=== PATIENT | female | born 1995 | race Caucasian/White ===

== ENCOUNTER 2016-07-19 11:06 | Inpatient (IN) | payer SELFPAY ==
[~2016-07-19] VITALS: Ht 160 cm; Wt 83.3 kg
[2016-07-19] VITALS (8 sets, daily range): BP systolic 88–110; BP diastolic 52–82; PULSE 62–104; RESP 16–20; TEMP 95.2–97.8; O2SAT 97–100
[~2016-07-19 11:06] MED LIST: BACT800T5 PO; CEPH-460 PO
--- NOTE | 2016-07-19 11:42 | PD ---
HPI Chief Complaint: Skin Problem Time Seen by Provider: 11:32 Travel History International Travel<30 days: No Contact w/Intl Traveler<30days: No Traveled to known affect area: No History of Present Illness HPI Patient is a 21-year-old female with history of IV drug abuse and chronic back pain who presents the emergency department today with complaint of back pain and abscess. Patient states that she has chronic back pain that is increased over the course the last several weeks. She was seen at [facility] and had an x-ray of the back that was reportedly negative and she was discharged. Her pain is increased and now radiates down both legs. There is no numbness, tingling, bowel or bladder dysfunction, saddle anesthesia. Patient however does have a history of IV drug abuse and has been injecting recently with resultant abscess to the left upper extremity. She denies any fevers, chills. [facility] Past Medical History Medical other: Yes (chronic back pain) ?: Not Past Surgical History Section: Yes Cholecystectomy: Yes Social History Alcohol Use: No Tobacco Use: Yes (1PPW) Substance Use: Yes (IV drug abuse) Allergies-Medications (Allergen,Severity, Reaction): Coded Allergies: No Known Allergies (Verified , 07/19/16) Reported Meds & Prescriptions Reported Meds & Active Scripts Active Review of Systems Except as stated in HPI: all other systems reviewed are Neg Physical Exam Narrative GENERAL: Well-appearing female in mild distress SKIN: Track duran in the bilateral upper extremities. Abscess to the left antecubital fossa. HEAD: Normocephalic. EYES:No scleral icterus. No injection or drainage. ENT: Mucous membranes pink and moist. NECK: Supple without midline tenderness to palpation or nuchal rigidity CARDIOVASCULAR: Regular rate and rhythm. No murmur appreciated. RESPIRATORY: No accessory muscle use. Clear to auscultation. Breath sounds equal bilaterally. GASTROINTESTINAL: Abdomen soft, non-tender, nondistended. MUSCULOSKELETAL: 5 out of 5 strength in the bilateral lower extremities, distal sensation and pulses intact. Abscess to the left antecubitus above. Patient complains of pain throughout the lumbar spine, no focal midline tenderness to palpation, step-offs, crepitus. NEUROLOGICAL: Awake and alert. Motor grossly within normal limits. Normal speech. PSYCHIATRIC: Poor insight and judgment Data Data Last Documented VS Vital Signs Date Time Temp Pulse Resp B/P Pulse Ox O2 Delivery O2 Flow Rate FiO2 07/19/16 12:55 89 07/19/16 11:08 97.6 20 110/60 99 Room Air Orders Lidocai-Epi 1%-1:100,000 Inj (Xylocaine- (07/19/16 11:45) Mri L Spine W&W/O Contrast (07/19/16 ) Basic Metabolic Panel (Bmp) (07/19/16 11:36) Blood Culture (07/19/16 11:36) Iv Access Insert/Monitor (07/19/16 11:36) Ketorolac Inj (Toradol Inj) (07/19/16 11:45) Gadodiamide Pf Inj (Omniscan Pf Inj) (07/19/16 15:10) Piperacil-Tazo 4.5 Gm Premix (Zosyn 4.5 (07/19/16 15:56) Vancomycin Inj (Vancomycin Inj) (07/19/16 15:56) Consult Infectious Disease (07/19/16 ) Labs Laboratory Tests Test 07/19/16 12:00 Sodium Level 136 MEQ/L Potassium Level 3.5 MEQ/L Chloride Level 106 MEQ/L Carbon Dioxide Level 23.8 MEQ/L Anion Gap 6 MEQ/L Blood Urea Nitrogen 4 MG/DL Creatinine 0.81 MG/DL Estimat Glomerular Filtration 88 ML/MIN Rate Random Glucose 80 MG/DL Calcium Level 8.7 MG/DL MDM Medical Decision Making Medical Screen Exam Complete: Yes Emergency Medical Condition: Yes Medical Record Reviewed: Yes Differential Diagnosis 21-year-old female with history of IV drug abuse here with complaint of acute on chronic back pain, abscess of the left upper extremity. Differential includes acute on chronic back pain, epidural abscess, discitis, bacteremia, left upper extremity abscess. Narrative Course IV established. Patient was given Toradol for pain. BMP obtained prior to MRI contrast. Unremarkable. Abscess to the left upper extremity was incised and drained, please see procedure note. MRI of the lumbar spine with and without contrast showed marrow edema and diffuse enhancement involving the right side of the inferior aspect of L3 and superior aspect of L4 as well as as diffuse enhancement along the epidural space anterior to the thecal sac from the top of L3 through the bottom of L4. Focal enhancement of the posterior aspect of L3 4 disc space. Findings suggestive of acute discitis with associated osteomyelitis of L3 and L4 and small epidural abscess. Severe right neural foraminal narrowing and moderate to severe left neural foraminal narrowing noted at L3 4. Patient was given vancomycin, Zosyn. Infectious disease and neurosurgery was consulted and patient will be admitted for further management. Critical Care Narrative Aggregate critical care time was 55 minutes. Time to perform other separately billable procedures was not included in the critical care time. My time did not include minutes spent treating any other patients simultaneously or on activities that did not directly contribute to the patient's treatment. The services I provided to this patient were to treat and/or prevent clinically significant deterioration that could result in: Paralysis, chronic back pain, , disability I provided critical care services requiring my management, as noted below: Chart data review, documentation time, medication orders and management, vital sign assessments/reviewing monitor data, ordering and reviewing lab tests, ordering and interpreting/reviewing x-rays and diagnostic studies, care of the patient and discussion of the patient with the admitting physicians. Diagnosis Primary Impression: Epidural abscess Additional Impressions: Discitis Qualified Code: M46.46 - Discitis of lumbar region Osteomyelitis Qualified Code: M86.9 - Osteomyelitis of multiple sites, unspecified type IV drug abuse Abscess of left forearm Admitting Information Admitting Physician Requests: Admit Maya Chapin MD Jul 19, 2016 11:42
[2016-07-19] MEDS ORDERED: LIDOCAINE 1%/EPINEPHrine 1:100,000 SOLN 20 ML VIAL INFIL ONE (11:45)
[2016-07-19] MEDS ORDERED: KETOROLAC TROMETHAMINE 30 MG/ML (IVP) VIAL IV PUSH ONE (11:45)
[2016-07-19 12:25] LABS: BICARBONATE 23.8 MEQ/L (21.0-32.0); POTASSIUM 3.5 MEQ/L (3.5-5.1)
--- NOTE | 2016-07-19 13:31 | PD ---
Physical Exam Date Seen by Provider: Jul 19, 2016 Narrative For full history and physical examination please see previous provider's note. I was asked to perform an I&D to the abscess on the left forearm. Data Data Last Documented VS Vital Signs Date Time Temp Pulse Resp B/P Pulse Ox O2 Delivery O2 Flow Rate FiO2 07/19/16 12:55 89 07/19/16 11:08 97.6 20 110/60 99 Room Air Orders Lidocai-Epi 1%-1:100,000 Inj (Xylocaine- (07/19/16 11:45) Mri L Spine W&W/O Contrast (07/19/16 ) Basic Metabolic Panel (Bmp) (07/19/16 11:36) Blood Culture (07/19/16 11:36) Iv Access Insert/Monitor (07/19/16 11:36) Ketorolac Inj (Toradol Inj) (07/19/16 11:45) Labs Laboratory Tests Test 07/19/16 12:00 Sodium Level 136 MEQ/L Potassium Level 3.5 MEQ/L Chloride Level 106 MEQ/L Carbon Dioxide Level 23.8 MEQ/L Anion Gap 6 MEQ/L Blood Urea Nitrogen 4 MG/DL Creatinine 0.81 MG/DL Estimat Glomerular Filtration 88 ML/MIN Rate Random Glucose 80 MG/DL Calcium Level 8.7 MG/DL MDM Medical Record Reviewed: Yes Supervised Visit with KAI: Yes Procedures Procedure Narrative After the risks and benefits were discussed the following procedure was performed: INCISION AND DRAINAGE OF ABSCESS: The area was prepped and was sterilely draped. A subcutaneous wheal of 1 % Xylocaine with a total number 2 mL was used to anesthetize the area. The area was properly anesthetized. A number 11 scalpel was used to make a 1-cm incision across the area of the abscess. Cultures were obtained. The abscess was drained an irrigated with normal saline. Quarter inch iodoform packing was placed in the wound. Sterile dressing applied. Patient advised to have packing removed in two days. Kelsey Beverly Jul 19, 2016 13:31
[2016-07-19] MEDS ORDERED: GADODIAMIDE PF 287 MG/ML 5 ML VIAL (for RAD MRI) IV ONE (15:10)
--- NOTE | 2016-07-19 15:54 | RADRPT ---
EXAM DATE/TIME: 07/19/2016 14:15 [facility] COMPARISON: No previous studies available for comparison. INDICATIONS : Abscess. CONTRAST: 15 cc Omniscan (gadodiamide) IV MEDICAL HISTORY : None. SURGICAL HISTORY : Cholecystectomy. section. ENCOUNTER: Initial ACUITY: 2 day PAIN SCORE: 4/10 LOCATION: Back TECHNIQUE: Multiplanar multisequence MRI of the lumbar spine was performed with and without contrast. FINDINGS: There is evidence of marrow edema involving the right half of the inferior portion of the L3 vertebra l body and the right half of the superior portion of the L4 vertebral body which demonstrates diffuse enhancement. There is also disc space narrowing and diffuse disc bulge at L3-4. Epidural enhanceme nt is noted anteriorly from L3 to L4 without evidence of significant mass effect upon the thecal sac. Severe right neural foraminal narrowing and moderate to severe left neural foraminal narrowing is no aquiles at this level. The findings are suggestive of acute discitis of the L3-4 level with adjacent ost eomyelitis of L3 and L4 predominantly on the right of midline as well as small anterior epidural absc ess extending from the top of L3 to the bottom of L4. Clinical correlation is recommended. There is no spinal stenosis or focal disc herniation within the remainder of the lumbar spine. No co mpression fracture or spondylolisthesis is noted. T12-L1: There is no significant spinal stenosis, disc bulge or herniation. The bilateral neural foramina are patent. The facet joints and ligaments are unremarkable. L1-2: There is no significant spinal stenosis, disc bulge or herniation. The bilateral neural foramina are patent. The facet joints and ligaments are unremarkable. L2-3: There is no significant spinal stenosis, disc bulge or herniation. The bilateral neural foramina are patent. The facet joints and ligaments are unremarkable. L3-4: There is diffuse marrow edema involving the right sides of the inferior aspect of L3 and the superior aspect of the L4 as well as diffuse disc bulge and diffuse anterior epidural enhancement from the to p of L3 through the bottom of L4. The findings are suggestive of acute discitis and associated oste omyelitis of L3 and L4 with small epidural abscess. No spinal stenosis is noted. There is severe rig ht neural foraminal narrowing and moderate to severe left neural foraminal narrowing at this level. L4-5: There is no significant spinal stenosis, disc bulge or herniation. The bilateral neural foramina are patent. The facet joints and ligaments are unremarkable. L5-S1: There is no significant spinal stenosis, disc bulge or herniation. The bilateral neural foramina are patent. The facet joints and ligaments are unremarkable. CONCLUSION: Marrow edema and diffuse enhancement involving the right side of the inferior aspect of L3 and superi or aspect of L4 as well as diffuse enhancement along the epidural space anterior to the thecal sac fr om the top of L3 through the bottom of L4 and focal enhancement of the posterior aspect of the L3-4 d isc space. The findings are suggestive of acute discitis at L3-4 with associated osteomyelitis of L3 and L4 and small epidural abscess. Clinical correlation is recommended. Severe right neural foramina l narrowing and moderate to severe left neural foraminal narrowing is noted at L3-4. Ortega Rutherford MD on July 19, 2016 at 15:19 Board Certified Radiologist. This report was verified electronically.
[2016-07-19] MEDS ORDERED: VANCOMYCIN INJ 1,000 MG in SODIUM CHLOR 0.9% 250 ML INJ 250 ML IV STA (15:56)
[2016-07-19] MEDS ORDERED: PIPERACIL-TAZO 4.5 GM PREMIX 100 ML IV STA (15:56)
[2016-07-19] MEDS ORDERED: ONDANSETRON HCL 4 MG/2 ML VIAL IVP PRN (16:45)
[2016-07-19] MEDS ORDERED: NALOXONE HCL 0.4 MG/ML AMP IV PRN (16:45)
--- NOTE | 2016-07-19 16:47 | HHI.HP ---
[facility] No Primary Care Physician Admission Diagnosis epidural abscess, discitis, osteomyelitis, left upper extremity absc Diagnoses: Chief Complaint: lower back pain and left arm abscess. Travel History International Travel<30 Days: No Contact w/Intl Traveler <30 Da: No Traveled to Known Affected Are: No History of Present Illness This is a 21-year-old female with current IV drug user who presented with lower back pain and left arm abscess. Patient stated lower back pain started about 1 month ago and worsened over time. She stated then less than 1 week ago she had left arm cellulitis with abscess formation that was I&D in emergency department. Patient denies any worsening weakness or any incontinence. She stated that she mostly use IV drugs on her right arm but has use her left arm 2. Patient started to using IV drugs the past 2-3 years. When I asked her her drug of choice she stated that she likes to use everything including heroin, cocaine, prescription medication. She denies any fevers or chills. Otherwise she has no other complaints. Review of Systems Constitutional: DENIES: Diaphoretic episodes, Fatigue, Fever, Weight gain, Weight loss, Chills, Dizziness, Change in appetite, Night Sweats Endocrine: DENIES: Abnorml menstrual pattern, Heat/cold intolerance, Polydipsia , Polyuria, Polyphagia Eyes: DENIES: Blurred vision, Diplopia, Eye inflammation, Eye pain, Vision loss , Photosensitivity, Double Vision Ears, nose, mouth, throat: DENIES: Tinnitus, Hearing loss, Vertigo, Nasal discharge, Oral lesions, Throat pain, Hoarseness, Ear Pain, Running Nose, Epistaxis, Sinus Pain, Toothache, Odynophagia Respiratory: DENIES: Apneas, Cough, Snoring, Wheezing, Hemoptysis, Sputum production, Shortness of breath Cardiovascular: DENIES: Chest pain, Palpitations, Syncope, Dyspnea on Exertion , PND, Lower Extremity Edema, Orthopnea, Claudication Gastrointestinal: DENIES: Abdominal pain, Black stools, Bloody stools, Constipation, Diarrhea, Nausea, Vomiting, Difficulty Swallowing, Anorexia Genitourinary: DENIES: Abnormal vaginal bleeding, Dysmenorrhea, Dyspareunia, Sexual dysfunction, Urinary frequency, Urinary incontinence, Urgency, Hematuria , Dysuria, Nocturia, Vaginal discharge Musculoskeletal: COMPLAINS OF: Back pain (left arm cellulitis with abscess.), DENIES: Joint pain, Muscle aches, Stiffness, Joint Swelling, Neck pain Integumentary: DENIES: Abnormal pigmentation, Pruritus, Rash, Nail changes, Breast masses, Breast skin changes, Nipple discharge Hematologic/lymphatic: DENIES: Bruising, Lymphadenopathy Immunologic/allergic: DENIES: Eczema, Urticaria Psychiatric: DENIES: Anxiety, Confusion, Mood changes, Depression, Hallucinations, Agitation, Suicidal Ideation, Homicidal Ideation, Delusions Past Family Social History Past Medical History IV drug user Past Surgical History D&C Cholecystectomy Reported Medications Deny any home medication. Allergies: Coded Allergies: No Known Allergies (Verified , 07/19/16) Active Ordered Medications Current Medications Lidocaine/ Epinephrine (Xylocaine-Epi 1%-1:100,000 Inj) 10 ml ONCE ONCE INFIL Last administered on 07/19/16 13:23; Start 07/19/16 at 11:45; Stop 07/19/16 at 11:46; Status DC Ketorolac Tromethamine (Toradol Inj) 30 mg ONCE ONCE IV PUSH Last administered on 07/19/16 12:17; Start 07/19/16 at 11:45; Stop 07/19/16 at 11:46 ; Status DC Gadodiamide 15 ml 15 ml STK-MED ONCE IV Last administered on 07/19/16 15:10; Start 07/19/16 at 15:10; Stop 07/19/16 at 15:11; Status DC Piperacillin Sod/ Tazobactam Sod 100 ml @ 200 mls/hr ONCE STAT IV ; Start at 15:56; Stop 07/19/16 at 16:25; Status Cancel Vancomycin HCl 1000 mg/Sodium Chloride 250 ml @ 250 mls/hr ONCE STAT IV ; Start 07/19/16 at 15:56; Stop 07/19/16 at 16:55; Status Cancel Sodium Chloride (NS 1000 ml Inj) 1,000 ml @ 100 mls/hr Q10H IV ; Start at 16:32 Sodium Chloride (NS Flush) 2 ml UNSCH PRN IV FLUSH FLUSH AFTER USING IV ACCESS ; Start 07/19/16 at 16:45 Sodium Chloride (NS Flush) 2 ml BID IV FLUSH ; Start 07/19/16 at 21:00 Ondansetron HCl (Zofran Inj) 4 mg Q6H PRN IVP NAUSEA OR VOMITING; Start at 16:45 Naloxone HCl (Narcan Inj) 0.4 mg UNSCH PRN IV SEE LABEL COMMENTS; Start at 16:45 Family History Father has diabetes. Social History Denies any alcohol or tobacco use. Positive for polysubstance abuse. Physical Exam Vital Signs Vital Signs Date Time Temp Pulse Resp B/P Pulse Ox O2 Delivery O2 Flow Rate FiO2 07/19/16 12:55 89 07/19/16 11:08 97.6 104 20 110/60 99 Room Air Physical Exam GENERAL: This is a well-nourished, well-developed patient, in no apparent distress. SKIN: left arm wrapped in bandage s/p I&D. HEAD: Atraumatic. Normocephalic. No temporal or scalp tenderness. EYES: Pupils equal round and reactive. Extraocular motions intact. No scleral icterus. No injection or drainage. ENT: Nose without bleeding, purulent drainage or septal hematoma. Throat without erythema, tonsillar hypertrophy or exudate. Uvula midline. Airway patent. NECK: Trachea midline. No JVD or lymphadenopathy. Supple, nontender, no meningeal signs. CARDIOVASCULAR: Regular rate and rhythm without murmurs, gallops, or rubs. RESPIRATORY: Clear to auscultation. Breath sounds equal bilaterally. No wheezes , rales, or rhonchi. GASTROINTESTINAL: Abdomen soft, non-tender, nondistended. No hepato-splenomegaly , or palpable masses. No guarding. MUSCULOSKELETAL: Extremities without clubbing, cyanosis, or edema. TTP of the lower back. No calf tenderness. Negative Homans sign bilaterally. NEUROLOGICAL: Awake and alert. Cranial nerves II through XII intact. Motor and sensory grossly within normal limits. Five out of 5 muscle strength in all muscle groups. Normal speech. Laboratory Laboratory Tests Test 07/19/16 12:00 Sodium Level 136 Potassium Level 3.5 Chloride Level 106 Carbon Dioxide Level 23.8 Anion Gap 6 Blood Urea Nitrogen 4 Creatinine 0.81 Estimat Glomerular Filtration 88 Rate Random Glucose 80 Calcium Level 8.7 Date/Time Procedure Status Source Growth 07/19/16 12:17 Aerobic Blood Culture Received Blood Peripheral Pending 07/19/16 12:17 Anaerobic Blood Culture Received Blood Peripheral Pending Result Diagram: 07/19/16 1200 Imaging Last Impressions Lumbar Spine MRI 07/19/16 0000 Signed Impressions: Service Date/Time: Tuesday, July 19, 2016 14:15 - CONCLUSION: Marrow edema and diffuse enhancement involving the right side of the inferior aspect of L3 and superior aspect of L4 as well as diffuse enhancement along the epidural space anterior to the thecal sac from the top of L3 through the bottom of L4 and focal enhancement of the posterior aspect of the L3-4 disc space. The findings are suggestive of acute discitis at L3-4 with associated osteomyelitis of L3 and L4 and small epidural abscess. Clinical correlation is recommended. Severe right neural foraminal narrowing and moderate to severe left neural foraminal narrowing is noted at L3-4. Ortega Rutherford MD Assessment and Plan Assessment and Plan Lower back pain -MRI of the lumbar suggestive of acute discitis at L3-4 with associated osteomyelitis of L3 and L4 and small epidural abscess. Severe right neural foraminal narrowing and moderate to severe left neural foraminal narrowing is noted at L3-4. -NSG consulted and recommend CT guided drainage of the abscess. ? L3-4 discitis associated osteomyelitis and small epidural abscess -patient is not septic and clinically looks well. -blood cultures obtained in ED. -will get CBC. -ID consulted. -d/w Dr. Martell over the phone and stated to hold antibiotics for now. Left arm abscess -Most likely secondary to IV drug use. Status post I&D in emergency department today. -Pending recommendations from infectious disease. IVDU with "everything" including prescription, heroine, cocaine -education give and harmful effects of IVDU. -recommend testing for Hepatitis and HIV. Patient stated she wants to be tested for hepatitis but declined HIV testing. DVT prophylaxis -SCDs. Code Status full Discussed Condition With patient Physician Certification 2 Midnight Certification Type: Admission for Inpatient Services Order for Inpatient Services The services are ordered in accordance with Medicare regulations or non- Medicare payer requirements, as applicable. In the case of services not specified as inpatient-only, they are appropriately provided as inpatient services in accordance with the 2-midnight benchmark. Estimated LOS (days): 5 5 days is the estimated time the patient will need to remain in the hospital, assuming treatment plan goals are met and no additional complications. Post-Hospital Plan: Home Health Laura Palafox MD Jul 19, 2016 16:47
[2016-07-19 17:22] LABS: AUTOMATED NEUTROPHIL # 5.3 TH/MM3 (1.8-7.7); BASOPHIL % 0.1 % (0.0-2.0); EOSINOPHIL % 0.5 % (0.0-4.0); HEMATOCRIT 38.6 % (35.0-46.0); HEMO FLAGS DIFF FINAL; LYMPH % 27.6 % (9.0-44.0); LYMPHOCYTE # 2.3 TH/MM3 (1.0-4.8); MEAN CORPUSCULAR HGB CONC 32.1 % (32.0-36.0); MONO % 7.6 % (0.0-8.0); NEUT % 64.2 % (16.0-70.0); PLATELET COUNT 198 TH/MM3 (150-450); RED CELL DISTRIBUTION WIDTH 15.3 % (11.6-17.2); WHITE BLOOD COUNT 8.2 TH/MM3 (4.0-11.0)
[2016-07-19 17:48] LABS: APTT (PATIENT) 33.3 SEC (24.3-30.1); INTERNATIONAL NORMALIZED RATIO 1.1 RATIO; PROTHROMBIN TIME - PATIENT 12.2 SEC (9.8-11.6)
[2016-07-19] MEDS ORDERED: fentaNYL CITRATE 250 MCG/5 ML AMP ONE (18:06)
[2016-07-19] MEDS ORDERED: MIDAZOLAM HCL 5 MG/5 ML VIAL ONE (18:06)
[2016-07-19] MEDS ORDERED: LIDOCAINE 1%/EPINEPHrine 1:100,000 SOLN 20 ML VIAL ONE (18:08)
--- NOTE | 2016-07-19 18:54 | PD.RAD ---
Post CT Procedure Prog Note Pre Procedure Diagnosis: (1) Epidural abscess (2) IV drug abuse Post Procedure Diagnosis: (1) Epidural abscess (2) IV drug abuse Procedure Date: Jul 19, 2016 Supervising Radiologist: Humberto Rodriguez Proceduralist/Assist: Carrillo Gaming RT(R)(CT) Anesthesia: Local, Analgesia, Conscious Sedation Plan of Activity Patient to Unit: Other (ED) Patient Condition: Good See PACS Report for procedural detail/treatment Biopsy Imaging Guidance: CT Biopsy Procedure: Other (Paraspinal right side L3-4) Site: Paraspinal tissues at L3-4 Humberto Rodriguez MD Jul 19, 2016 18:53
[2016-07-19] MEDS: SODIUM CHLOR 0.9% 1000 ML INJ 1,000 ML IV SCH (21:00)
[2016-07-19] MEDS ORDERED: HYDROmorphone HCL PF 1 MG/ML VIAL IV PUSH ONE (23:45)
[2016-07-19] MEDS: ACETAMINOPHEN 325 MG TAB PO PRN (23:50)
[2016-07-19] MEDS: SODIUM CHLORIDE 0.9% FLUSH 10 ML FLUSH IV FLUSH SCH (23:55)
[2016-07-20] VITALS: BP 96/53; PULSE 76; RESP 18; TEMP 95.2; O2SAT 97
[2016-07-20] MEDS: KETOROLAC TROMETHAMINE 30 MG/ML (IVP) VIAL IV PUSH PRN ×3 (03:00→21:56)
[2016-07-20 04:00] VITALS: BP 101/72; PULSE 83; RESP 18; TEMP 97.5; O2SAT 98
[2016-07-20] MEDS: ACETAMINOPHEN 325 MG TAB PO PRN ×3 (04:56→21:55)
[2016-07-20] MEDS: SODIUM CHLOR 0.9% 1000 ML INJ 1,000 ML IV SCH (05:00)
[2016-07-20 08:00] VITALS: BP 96/56; PULSE 55; RESP 17; TEMP 95.7; O2SAT 98
[2016-07-20 09:42] LABS: HEMATOCRIT 32.8 % (35.0-46.0); MEAN CELL VOLUME 83.6 FL (80.0-100.0); MEAN CORPUSCULAR HEMOGLOBIN 27.6 PG (27.0-34.0); PLATELET COUNT 149 TH/MM3 (150-450); RED BLOOD COUNT 3.93 MIL/MM3 (4.00-5.30); RED CELL DISTRIBUTION WIDTH 15.5 % (11.6-17.2); REVIEW FLAG FINAL; WHITE BLOOD COUNT 4.2 TH/MM3 (4.0-11.0)
[2016-07-20 10:17] LABS: BICARBONATE 24.7 MEQ/L (21.0-32.0); POTASSIUM 3.7 MEQ/L (3.5-5.1)
--- NOTE | 2016-07-20 11:39 | RADRPT ---
EXAM DATE/TIME: 07/19/2016 18:27 [facility] COMPARISON: No previous studies available for comparison. INDICATIONS : Discitis. SEDATION TIME: 30 minutes MEDICATION(S): 1.) 3 mg midazolam (Versed) IV 2.) 200 mcg fentanyl (Sublimaze) LABOR RELATIONS DIRECTOR(s): Neo Jose RN DEVICE(S): 1.) 18 gauge Kim blunt needle 2.) 20 gauge Chiba FLUID: Total volume of 5 cc of cloudy, red fluid was removed. Fluid was sent for laboratory ordered studies. MEDICAL HISTORY : None. SURGICAL HISTORY : Cholecystectomy. ENCOUNTER: Initial ACUITY: 1 month PAIN SCORE: 10/10 LOCATION: Bilateral lower back PROCEDURE: 1.) Conscious sedation with continuous EKG and oximetry monitoring. 2.) EKG and oximetry remained stable throughout the procedure. PROCEDURE : CT guided right paravertebral biopsy, L3-L4. The risks, benefits and alternatives to the procedure were explained and verbal and written consent w as obtained. Using automated exposure control and adjustment of the mA and/or kV according to patien t size, radiation dose was kept as low as reasonably achievable to obtain optimal diagnostic quality images. The site was prepped in sterile fashion. Full sterile technique was used, including cap, ma sk, sterile gloves and gown and a large sterile sheet. Hand hygiene and 2% chlorhexidine and/or beta dine/alcohol prep was utilized per protocol for cutaneous antisepsis. The skin and subcutaneous tiss ues were infiltrated with local anesthetic solution. A 15 cm, 18 gauge Kim blunt needle was advanced into the paravertebral tissues on the right side of the L3-4 vertebral body and disc. 20 gauge FNA was obtained. This was placed in a culture tube. Th e outer cannulas ET D. Kim blunt needle was then aspirated as well. This too was placed in the [facility] culture tubes and sent to laboratory for analysis. CONCLUSION: Uncomplicated paravertebral FNA as above. Humberto Rodriguez MD on July 20, 2016 at 11:21 Board Certified Radiologist. This report was verified electronically.
[2016-07-20 12:00] VITALS: BP 107/59; PULSE 80; RESP 17; TEMP 96.3; O2SAT 98
--- NOTE | 2016-07-20 13:31 | MB ---
cc: MOOKIE VILLAFUERTE M.D. DATE OF CONSULTATION 07/20/2016 REASON FOR CONSULTATION L3-4 osteomyelitis. HISTORY OF PRESENT ILLNESS This is a 21-year-old female with a one-month history of low back pain where at times, it radiates into the right buttock and thigh area. She denies any weakness or incontinence. She does have a history of IV drug abuse and has been injecting drugs recently with an abscess in the left upper extremity. She presented to the emergency room and this abscess was incised and drained and cultures sent out which are pending. MRI scan of the lumbar spine also obtained which shows enhancement of the inferior L3 and superior L4 end plates along with some epidural enhancement, but no significant spinal stenosis. The MRI of the lumbar spine findings were consistent with osteomyelitis and possibly a small epidural abscess/diskitis. She underwent CT-guided aspiration of this paraspinal L3-L4 level, cultures are pending. She has also had two blood cultures which the results are pending. Antibiotics were held until the cultures were obtained and infectious disease consultation is also pending. She has been able to ambulate and go to the bathroom independently and relates that her back pain is slightly better with medications compared to yesterday. PAST MEDICAL HISTORY 1. IV drug abuse which includes heroin, cocaine and prescription pain medication. 2. 3. Cholecystectomy 4. D&C ALLERGIES NO KNOWN DRUG ALLERGIES. SOCIAL HISTORY She is single and admits to IV drug abuse. Denies alcohol or tobacco use. REVIEW OF SYSTEMS Pertinent positives includes cellulitis and abscess in the left forearm area which was drained yesterday in the emergency room, but she denies any fevers. No chest pain or shortness of breath. No neck pain, numbness or paresthesias in the upper extremities and eminently she has noticed some in the right leg when she is walking, but mostly relates difficulty because of the pain with activity in the back. No incontinence. No history of easy bleeding or bruising. No nausea or vomiting. No abdominal pain. LABORATORY FINDINGS White blood cell count 4.2, hemoglobin 10.8, platelet count 149, ESR 38. Sodium 142, potassium 3.7, BUN 7, creatinine 0.57, glucose is 76, PT 12.2, INR 1.1. PHYSICAL EXAMINATION VITALS: Temperature 95.7, pulse 55, rest rate 17, blood pressure 96/56, oxygen saturation 98% on room air. HEAD: Normocephalic, atraumatic. NECK: Supple. CHEST: Clear to incision bilaterally. HEART: Regular rate rhythm, normal S1 and S2. ABDOMEN: Soft and nontender. She is obese. EXTREMITIES: No cyanosis. She does have a dressing on the left elbow area after I&D. No obvious deformity. NEUROLOGIC: She is laying in bed eating lunch and talking on her cell phone and does not appear to be in any distress. She is awake, alert, and oriented x3. Cranial nerves intact. Motor strength in the upper and lower extremities 5/5. Some give away weakness more proximally in the right leg with pain, but no focal deficits noted. Light touch sensation is intact. Negative Babinski. Speech is fluent. IMPRESSION AND PLAN 1. L3-L4 osteomyelitis with possible diskitis and a small epidural abscess without any spinal stenosis. 2. Left arm cellulitis left abscess status post I&D related to IV drug abuse. The patient has undergone an L3-4 CT-guided aspiration along with I&D of the left forearm and blood cultures. the results of all are pending. At this point since the cultures have been obtained, I would recommend initiation of broad spectrum IV antibiotics and subsequently titrated to any organisms that grow out from the various cultures obtained. Obviously, I will defer this management and antibiotic treatment to the infectious disease service. At this point, there is no role for any neurosurgical intervention and will be available as needed. MD ERNESTO Umana/MANUEL /12:28 PM /1:21 PM
[2016-07-20] MEDS: VANCOMYCIN INJ 1,000 MG in SODIUM CHLOR 0.9% 250 ML INJ 250 ML IV SCH (14:34)
[2016-07-20 16:00] VITALS: BP 106/51; PULSE 79; RESP 18; TEMP 97; O2SAT 99
--- NOTE | 2016-07-20 16:02 | PD.ID.CON ---
History of Present Illness Service ID Consult Requested By Dr Mota Reason for Consult osteomyelitis, diskitis Primary Care Physician No Primary Care Physician Diagnoses: History of Present Illness 21 yo female with actice IVDU presented with lower back pain, R sided, radiating to R buttock and thigh Also noticed 2-3 days ago a painful lesion on her L forearm that was I+D'd yday , growing MRSA She has back pain for few weeks, but denies any fever, chills and night sweats She also denies lower extremeties weakness and esther/ /urine incontinence Her MRI showed findings suggestive of acute discitis at L3-4 with associated osteomyelitis of L3 and L4 and small epidural abscess She was seen by Dr Suzy Mota who recommended against neurosurgical intervention Pt underewent IR aspiration of the disk and the clx is now growing GNB She is on vancomycin and levaquine Review of Systems Except as stated in HPI: all other systems reviewed are Neg Past Family Social History Allergies: Coded Allergies: No Known Allergies (Verified , 07/19/16) Past Medical History IV drug user Past Surgical History D&C Cholecystectomy Active Ordered Medications Medications where reviewed in EMR Antibiotics Include: levaquine vancomycin Family History Non-Contributory. Social History No Tobacco. No ETOH. + Illicit Drugs, acive IVDA Physical Exam Vital Signs Vital Signs Date Time Temp Pulse Resp B/P Pulse Ox O2 Delivery O2 Flow Rate FiO2 07/20/16 12:00 96.3 80 17 107/59 98 07/20/16 08:00 95.7 55 17 96/56 98 07/20/16 04:00 97.5 83 18 101/72 98 07/20/16 00:00 95.2 76 18 96/53 97 07/19/16 22:38 95.2 76 18 96/53 97 07/19/16 20:15 67 17 93/52 100 Room Air 07/19/16 20:00 66 17 90/55 100 Room Air 07/19/16 19:45 62 17 97/55 99 Room Air 07/19/16 19:30 78 16 94/52 97 Room Air 07/19/16 19:11 97.8 69 16 88/52 98 Room Air Physical Exam CONSTITUTIONAL/GENERAL: This is an adequately nourished patient, in mild distress 2/2 pain TUBES/LINES/DRAINS: SKIN: No jaundice, rashes, or lesions. Skin temperature appropriate. Not diaphoretic. HEAD: Atraumatic. Normocephalic. EYES: Pupils equal and round and reactive. Extraocular motions intact. No scleral icterus. No injection or drainage. Fundi not examined. ENT: Hearing grossly normal. Nose without bleeding or purulent drainage. Throat without visible erythema, exudates, masses, or lesions. NECK: Trachea midline. Supple, nontender. No palpable thyroid enlargement or nodularity. CARDIOVASCULAR: Regular rate and rhythm without murmurs, gallops, or rubs. No JVD. Peripheral pulses symmetric. RESPIRATORY/CHEST: Symmetric, unlabored respirations. Clear to auscultation. Breath sounds equal bilaterally. No wheezes, rales, or rhonchi. GASTROINTESTINAL: Abdomen soft, non-tender, nondistended. No hepato-splenomegaly , or palpable masses. No guarding. Bowel sounds present. MUSCULOSKELETAL: Extremities without clubbing, cyanosis, or edema.. No mottling or clubbing. L forearm with operative dressing in place , packing in place wih minimal drainage BACK: tender to palpation overn R lower lumbar area LYMPHATICS: No palpable cervical or supraclavicular adenopathy. NEUROLOGICAL: Awake and alert. Motor and sensory grossly within normal limits. Follows commands. Normal speech. Moves all extremities 5/5 strengh PSYCHIATRIC: No obvious anxiety/depression. no apparent hallucinations or other psychotic thought process, though is anxious about her pain Laboratory Laboratory Tests Test 07/20/16 08:29 White Blood Count 4.2 Red Blood Count 3.93 Hemoglobin 10.8 Hematocrit 32.8 Mean Corpuscular Volume 83.6 Mean Corpuscular Hemoglobin 27.6 Mean Corpuscular Hemoglobin 33.0 Concent Red Cell Distribution Width 15.5 Platelet Count 149 Mean Platelet Volume 9.5 Sodium Level 142 Potassium Level 3.7 Chloride Level 110 Carbon Dioxide Level 24.7 Anion Gap 7 Blood Urea Nitrogen 7 Creatinine 0.57 Estimat Glomerular Filtration 133 Rate Random Glucose 76 Calcium Level 8.2 Hepatitis A IgM Antibody NEGATIVE Hepatitis B Surface Antigen NEGATIVE Hepatitis B Core IgM Antibody REACTIVE Hepatitis C Antibody REACTIVE Date/Time Procedure Status Source Growth 07/19/16 18:40 Gram Stain - Final Resulted Abscess Back 07/19/16 18:40 Wound Culture - Preliminary Resulted Gram Negative Miguel Ángel 07/19/16 12:17 Aerobic Blood Culture - Preliminary Resulted Blood Peripheral NO GROWTH IN 1 DAY 07/19/16 12:17 Anaerobic Blood Culture - Preliminary Resulted Blood Peripheral NO GROWTH IN 1 DAY Result Diagram: 07/20/16 0829 07/20/16 0829 Imaging Last Impressions Needle Aspiration CT 07/19/16 0000 Signed Impressions: Service Date/Time: Tuesday, July 19, 2016 18:27 - CONCLUSION: Uncomplicated paravertebral FNA as above. Humberto Rodriguez MD Lumbar Spine MRI 07/19/16 0000 Signed Impressions: Service Date/Time: Tuesday, July 19, 2016 14:15 - CONCLUSION: Marrow edema and diffuse enhancement involving the right side of the inferior aspect of L3 and superior aspect of L4 as well as diffuse enhancement along the epidural space anterior to the thecal sac from the top of L3 through the bottom of L4 and focal enhancement of the posterior aspect of the L3-4 disc space. The findings are suggestive of acute discitis at L3-4 with associated osteomyelitis of L3 and L4 and small epidural abscess. Clinical correlation is recommended. Severe right neural foraminal narrowing and moderate to severe left neural foraminal narrowing is noted at L3-4. Ortega Rutherford MD Assessment and Plan Assessment and Plan IVDU acute discitis with associated osteomyelitis of L3 and L4 and small epidural abscess, GNB (? psuedomonas)) cont vancomycin cont levaquin - start cefepime 2 gm q 8 hrs monitor clincially anticipate repeat imaging studies next week, earlier if clinical deterioration Beverley Fiore MD Jul 20, 2016 16:02
[2016-07-20] MEDS: LEVOFLOXACIN 750 MG PREMIX INJ 150 ML IV SCH (16:10)
--- NOTE | 2016-07-20 16:58 | HHI.PR ---
Subjective Remarks Follow-up for infection Patient had no complaints. She remains afebrile. I asked patient if I can remove the bandage so I can see the cellulitis on her left arm and she refused. Alexander otherwise no acute events overnight. Objective Vitals Vital Signs Date Time Temp Pulse Resp B/P Pulse Ox O2 Delivery O2 Flow Rate FiO2 07/20/16 16:00 97.0 79 18 106/51 99 07/20/16 12:00 96.3 80 17 107/59 98 07/20/16 08:00 95.7 55 17 96/56 98 07/20/16 04:00 97.5 83 18 101/72 98 07/20/16 00:00 95.2 76 18 96/53 97 07/19/16 22:38 95.2 76 18 96/53 97 07/19/16 20:15 67 17 93/52 100 Room Air 07/19/16 20:00 66 17 90/55 100 Room Air 07/19/16 19:45 62 17 97/55 99 Room Air 07/19/16 19:30 78 16 94/52 97 Room Air 07/19/16 19:11 97.8 69 16 88/52 98 Room Air I/O 07/19/16 07/19/16 07/19/16 07/20/16 07/20/16 07/20/16 07:00 15:00 23:00 07:00 15:00 23:00 Intake Total 360 ml Balance 360 ml Intake Oral 360 ml # Voids 3 1 # Bowel Movements 0 Result Diagram: 07/20/1682807/20/16828 Objective Remarks GENERAL: in NAD CARDIOVASCULAR: Regular rate and rhythm without murmurs, gallops, or rubs. RESPIRATORY: Breath sounds equal bilaterally. No accessory muscle use. GASTROINTESTINAL: Abdomen soft, non-tender, nondistended. MUSCULOSKELETAL: No cyanosis, or edema. left arm in bandage. I am not able to examine it since patient refused. BACK: Nontender without obvious deformity. No CVA tenderness. Medications and IVs Current Medications Lidocaine/ Epinephrine (Xylocaine-Epi 1%-1:100,000 Inj) 10 ml ONCE ONCE INFIL Last administered on 07/19/16t 13:23; Start 07/19/16 at 11:45; Stop 07/19/16 at 11:46; Status DC Ketorolac Tromethamine (Toradol Inj) 30 mg ONCE ONCE IV PUSH Last administered on 07/19/16 12:17; Start 07/19/16 at 11:45; Stop 07/19/16 at 11:46 ; Status DC Gadodiamide 15 ml 15 ml STK-MED ONCE IV Last administered on 07/19/16 15:10; Start 07/19/16 at 15:10; Stop 07/19/16 at 15:11; Status DC Piperacillin Sod/ Tazobactam Sod 100 ml @ 200 mls/hr ONCE STAT IV ; Start at 15:56; Stop 07/19/16 at 16:25; Status Cancel Vancomycin HCl 1000 mg/Sodium Chloride 250 ml @ 250 mls/hr ONCE STAT IV ; Start 07/19/16 at 15:56; Stop 07/19/16 at 16:55; Status Cancel Sodium Chloride (NS 1000 ml Inj) 1,000 ml @ 100 mls/hr Q10H IV Last administered on 07/20/16 05:00; Start 07/19/16 at 16:32 Sodium Chloride (NS Flush) 2 ml UNSCH PRN IV FLUSH FLUSH AFTER USING IV ACCESS ; Start 07/19/16 at 16:45 Sodium Chloride (NS Flush) 2 ml BID IV FLUSH ; Start 07/19/16 at 21:00 Ondansetron HCl (Zofran Inj) 4 mg Q6H PRN IVP NAUSEA OR VOMITING; Start at 16:45 Naloxone HCl (Narcan Inj) 0.4 mg UNSCH PRN IV SEE LABEL COMMENTS; Start at 16:45 Midazolam HCl (Versed Inj) 5 mg STK-MED ONCE .ROUTE Last administered on 18:06; Start 07/19/16 at 18:06; Stop 07/19/16 at 18:07; Status DC Fentanyl Citrate (fentaNYL INJ) 250 mcg STK-MED ONCE .ROUTE Last administered on 07/19/16 18:06; Start 07/19/16 at 18:06; Stop 07/19/16 at 18:07; Status DC Lidocaine/ Epinephrine (Xylocaine-Epi 1%-1:100,000 Inj) 20 ml STK-MED ONCE .ROUTE Last administered on 07/19/16 18:08; Start 07/19/16 at 18:08; Stop at 18:09; Status DC Ketorolac Tromethamine (Toradol Inj) 30 mg Q6H PRN IV PUSH pain >5 Last administered on 07/20/16 15:15; Start 07/19/16 at 23:45; Stop 07/24/16 at 23:44 Acetaminophen (Tylenol) 650 mg Q4H PRN PO pain <5 Last administered on 15:14; Start 07/19/16 at 23:45 Hydromorphone HCl 0.2 mg 0.2 mg ONCE ONCE IV PUSH Last administered on 23:50; Start 07/19/16 at 23:45; Stop 07/19/16 at 23:46; Status DC Vancomycin HCl 1000 mg/Sodium Chloride 250 ml @ 250 mls/hr Q12H IV Last administered on 07/20/16 14:34; Start 07/20/16 at 13:00 Levofloxacin/ Dextrose (Levaquin 750 Mg Premix Inj) 150 ml @ 100 mls/hr Q24H IV Last administered on 07/20/16 16:10; Start 07/20/16 at 15:00 A/P Assessment and Plan 21-year-old female IV drug user who presented with lower back pain for one month Acute discitis at L3-4 with associated osteomyelitis of L3 and L4 and small epidural abscess -MRI of the lumbar suggestive of acute discitis at L3-4 with associated osteomyelitis of L3 and L4 and small epidural abscess. Severe right neural foraminal narrowing and moderate to severe left neural foraminal narrowing is noted at L3-4. -NSG and ff -Status post CT-guided drainage of the small epidural abscess on 07/19/2016 pending cultures. Pending blood cultures. -Infectious disease consulted patient was started on Levaquin and vancomycin. Left arm abscess -Most likely secondary to IV drug use. Status post I&D in emergency department today. -Patient refused to allow me to examine her bone. -She was started on Levaquin and vancomycin by infectious disease. IVDU with "everything" including prescription, heroine, cocaine -education give and harmful effects of IVDU. -recommend testing for Hepatitis and HIV. Patient stated she wants to be tested for hepatitis but declined HIV testing. -Pending hepatitis panel result. DVT prophylaxis -SCDs. Discharge Planning Patient most likely will need 6 weeks of IV antibiotics. Laura Palafox MD Jul 20, 2016 16:58
[2016-07-20 20:00] VITALS: BP 114/66; PULSE 80; RESP 18; TEMP 97.8; O2SAT 99
[2016-07-20] MEDS: SODIUM CHLORIDE 0.9% FLUSH 10 ML FLUSH IV FLUSH SCH (21:00)
[2016-07-21] VITALS: BP 114/74; PULSE 69; RESP 18; TEMP 97; O2SAT 98
[2016-07-21] MEDS: VANCOMYCIN INJ 1,000 MG in SODIUM CHLOR 0.9% 250 ML INJ 250 ML IV SCH ×2 (01:12→12:46)
[2016-07-21] MEDS: CEFEPIME INJ 2,000 MG in SODIUM CHLORIDE 0.9% INJ 100 ML IV SCH ×3 (03:10→17:51)
[2016-07-21 04:00] VITALS: BP 105/63; PULSE 72; RESP 18; TEMP 97.2; O2SAT 98
[2016-07-21 07:57] LABS: HEMATOCRIT 34.1 % (35.0-46.0); MEAN CELL VOLUME 83.9 FL (80.0-100.0); MEAN CORPUSCULAR HEMOGLOBIN 26.9 PG (27.0-34.0); MEAN CORPUSCULAR HGB CONC 32.1 % (32.0-36.0); PLATELET COUNT 168 TH/MM3 (150-450); RED BLOOD COUNT 4.06 MIL/MM3 (4.00-5.30); RED CELL DISTRIBUTION WIDTH 15.3 % (11.6-17.2); REVIEW FLAG FINAL; WHITE BLOOD COUNT 5.5 TH/MM3 (4.0-11.0)
[2016-07-21 08:00] VITALS: BP 101/59; PULSE 62; RESP 17; TEMP 96.2; O2SAT 98
[2016-07-21 08:23] LABS: BICARBONATE 22.6 MEQ/L (21.0-32.0); POTASSIUM 3.7 MEQ/L (3.5-5.1)
[2016-07-21] MEDS: SODIUM CHLORIDE 0.9% FLUSH 10 ML FLUSH IV FLUSH SCH ×2 (09:00→22:57)
[2016-07-21] MEDS: SODIUM CHLOR 0.9% 1000 ML INJ 1,000 ML IV SCH ×2 (10:46→18:28)
[2016-07-21] MEDS: KETOROLAC TROMETHAMINE 30 MG/ML (IVP) VIAL IV PUSH PRN ×2 (10:47→22:57)
[2016-07-21 12:00] VITALS: BP 104/53; PULSE 72; RESP 17; TEMP 96.4; O2SAT 98
[2016-07-21] MEDS: LEVOFLOXACIN 750 MG PREMIX INJ 150 ML IV SCH (15:04)
[2016-07-21 16:00] VITALS: BP 98/56; PULSE 82; RESP 18; TEMP 97; O2SAT 98
--- NOTE | 2016-07-21 17:04 | HHI.PR ---
Subjective Remarks Follow-up for infection Patient has no complaints she stated that she did not know she was sleeping for a long time. Denied any pain. Her nurse is at the bedside. No acute events since patient was last seen. Objective Vitals Vital Signs Date Time Temp Pulse Resp B/P Pulse Ox O2 Delivery O2 Flow Rate FiO2 07/21/16 16:00 97.0 82 18 98/56 98 07/21/16 12:00 96.4 72 17 104/53 98 07/21/16 08:00 96.2 62 17 101/59 98 07/21/16 04:00 97.2 72 18 105/63 98 07/21/16 00:00 97.0 69 18 114/74 98 07/20/16 20:00 97.8 80 18 114/66 99 I/O 07/20/16 07/20/16 07/20/16 07/21/16 07/21/16 07/21/16 07:00 15:00 23:00 07:00 15:00 23:00 Intake Total 360 ml 600 ml 600 ml 240 ml Balance 360 ml 600 ml 600 ml 240 ml Intake Oral 360 ml 600 ml 600 ml 240 ml # Voids 3 1 2 3 2 # Bowel Movements 0 0 Result Diagram: 07/21/1671407/21/16714 Objective Remarks GENERAL: in NAD CARDIOVASCULAR: Regular rate and rhythm without murmurs, gallops, or rubs. RESPIRATORY: Breath sounds equal bilaterally. No accessory muscle use. GASTROINTESTINAL: Abdomen soft, non-tender, nondistended. MUSCULOSKELETAL: No cyanosis, or edema. Left arm status post I&D with minimal purulent drainage. No cellulitis is noted. No fluctuance or induration noted around the wound. BACK: Nontender without obvious deformity. No CVA tenderness. Medications and IVs Current Medications Lidocaine/ Epinephrine (Xylocaine-Epi 1%-1:100,000 Inj) 10 ml ONCE ONCE INFIL Last administered on 07/19/16 13:23; Start 07/19/16 at 11:45; Stop 07/19/16 at 11:46; Status DC Ketorolac Tromethamine (Toradol Inj) 30 mg ONCE ONCE IV PUSH Last administered on 07/19/16 12:17; Start 07/19/16 at 11:45; Stop 07/19/16 at 11:46 ; Status DC Gadodiamide 15 ml 15 ml STK-MED ONCE IV Last administered on 07/19/16 15:10; Start 07/19/16 at 15:10; Stop 07/19/16 at 15:11; Status DC Piperacillin Sod/ Tazobactam Sod 100 ml @ 200 mls/hr ONCE STAT IV ; Start at 15:56; Stop 07/19/16 at 16:25; Status Cancel Vancomycin HCl 1000 mg/Sodium Chloride 250 ml @ 250 mls/hr ONCE STAT IV ; Start 07/19/16 at 15:56; Stop 07/19/16 at 16:55; Status Cancel Sodium Chloride (NS 1000 ml Inj) 1,000 ml @ 100 mls/hr Q10H IV Last administered on 07/21/16 10:46; Start 07/19/16 at 16:32 Sodium Chloride (NS Flush) 2 ml UNSCH PRN IV FLUSH FLUSH AFTER USING IV ACCESS ; Start 07/19/16 at 16:45 Sodium Chloride (NS Flush) 2 ml BID IV FLUSH ; Start 07/19/16 at 21:00 Ondansetron HCl (Zofran Inj) 4 mg Q6H PRN IVP NAUSEA OR VOMITING; Start at 16:45 Naloxone HCl (Narcan Inj) 0.4 mg UNSCH PRN IV SEE LABEL COMMENTS; Start at 16:45 Midazolam HCl (Versed Inj) 5 mg STK-MED ONCE .ROUTE Last administered on 18:06; Start 07/19/16 at 18:06; Stop 07/19/16 at 18:07; Status DC Fentanyl Citrate (fentaNYL INJ) 250 mcg STK-MED ONCE .ROUTE Last administered on 07/19/16 18:06; Start 07/19/16 at 18:06; Stop 07/19/16 at 18:07; Status DC Lidocaine/ Epinephrine (Xylocaine-Epi 1%-1:100,000 Inj) 20 ml STK-MED ONCE .ROUTE Last administered on 07/19/16 18:08; Start 07/19/16 at 18:08; Stop at 18:09; Status DC Ketorolac Tromethamine (Toradol Inj) 30 mg Q6H PRN IV PUSH pain >5 Last administered on 07/21/16 10:47; Start 07/19/16 at 23:45; Stop 07/24/16 at 23:44 Acetaminophen (Tylenol) 650 mg Q4H PRN PO pain <5 Last administered on 21:55; Start 07/19/16 at 23:45 Hydromorphone HCl 0.2 mg 0.2 mg ONCE ONCE IV PUSH Last administered on 23:50; Start 07/19/16 at 23:45; Stop 07/19/16 at 23:46; Status DC Vancomycin HCl 1000 mg/Sodium Chloride 250 ml @ 250 mls/hr Q12H IV Last administered on 07/21/16 12:46; Start 07/20/16 at 13:00 Levofloxacin/ Dextrose 150 ml @ 100 mls/hr Q24H IV Last administered on 15:04; Start 07/20/16 at 15:00 Cefepime HCl/ Sodium Chloride (Maxipime Inj/NS Inj) 100 ml @ 200 mls/hr Q8H IV Last administered on 07/21/16 10:47; Start 07/21/16 at 02:00 A/P Assessment and Plan 21-year-old female IV drug user who presented with lower back pain for one month Acute discitis at L3-4 with associated osteomyelitis of L3 and L4 and small epidural abscess -MRI of the lumbar suggestive of acute discitis at L3-4 with associated osteomyelitis of L3 and L4 and small epidural abscess. Severe right neural foraminal narrowing and moderate to severe left neural foraminal narrowing is noted at L3-4. -NSG and ID ff -Status post CT-guided drainage of the small epidural abscess on 07/19/2016 culture growing pantoea agglomerans which is pansensitive. So far blood cultures are negative. -Per infectious disease continue Levaquin, vancomycin, and cefepime. Per infectious disease anticipate repeat imaging studies next week, earlier if clinical deterioration Left arm abscess -Most likely secondary to IV drug use. Status post I&D in emergency department today. -Wound culture grew MRSA. Patient is currently on vancomycin. IVDU with "everything" including prescription, heroine, cocaine -education given on harmful effects of IVDU. -recommend testing for Hepatitis and HIV. Patient stated she wants to be tested for hepatitis but declined HIV testing. -Pending hepatitis panel result. DVT prophylaxis -SCDs. Discharge Planning Patient most likely will need 6 weeks of IV antibiotics. Laura Palafox MD Jul 21, 2016 17:04
[2016-07-21 20:00] VITALS: BP 102/60; PULSE 67; RESP 20; TEMP 97.6; O2SAT 99
[2016-07-22] VITALS: BP 101/71; PULSE 66; RESP 20; TEMP 97.6; O2SAT 98
[2016-07-22] MEDS: VANCOMYCIN INJ 1,000 MG in SODIUM CHLOR 0.9% 250 ML INJ 250 ML IV SCH ×2 (01:50→12:27)
[2016-07-22] MEDS: CEFEPIME INJ 2,000 MG in SODIUM CHLORIDE 0.9% INJ 100 ML IV SCH ×3 (01:51→16:52)
[2016-07-22 04:00] VITALS: BP 100/56; PULSE 63; RESP 20; TEMP 97.8; O2SAT 97
[2016-07-22] MEDS: SODIUM CHLOR 0.9% 1000 ML INJ 1,000 ML IV SCH ×2 (04:32→12:27)
[2016-07-22 08:00] VITALS: BP 106/65; PULSE 68; RESP 16; TEMP 97.7; O2SAT 98
[2016-07-22] MEDS: SODIUM CHLORIDE 0.9% FLUSH 10 ML FLUSH IV FLUSH SCH ×2 (08:15→20:44)
[2016-07-22] MEDS: KETOROLAC TROMETHAMINE 30 MG/ML (IVP) VIAL IV PUSH PRN ×2 (09:07→19:44)
--- NOTE | 2016-07-22 09:14 | HHI.PR ---
Subjective Remarks resting comfortably with no distress. has some back pain. no fever. d/w the RN and no acute issues over night. Objective Vitals Vital Signs Date Time Temp Pulse Resp B/P Pulse Ox O2 Delivery O2 Flow Rate FiO2 07/22/16 04:00 97.8 63 20 100/56 97 07/22/16 00:00 97.6 66 20 101/71 98 07/21/16 20:00 97.6 67 20 102/60 99 07/21/16 16:00 97.0 82 18 98/56 98 07/21/16 12:00 96.4 72 17 104/53 98 I/O 07/21/16 07/21/16 07/21/16 07/22/16 07/22/16 07/22/16 07:00 15:00 23:00 07:00 15:00 23:00 Intake Total 600 ml 240 ml 240 ml Balance 600 ml 240 ml 240 ml Intake Oral 600 ml 240 ml 240 ml # Voids 3 2 2 2 # Bowel Movements 0 Result Diagram: 07/21/16 0715 07/21/16 0715 Imaging Last Impressions Needle Aspiration CT 07/19/16 0000 Signed Impressions: Service Date/Time: Tuesday, July 19, 2016 18:27 - CONCLUSION: Uncomplicated paravertebral FNA as above. Humberto Rodriguez MD Lumbar Spine MRI 07/19/16 0000 Signed Impressions: Service Date/Time: Tuesday, July 19, 2016 14:15 - CONCLUSION: Marrow edema and diffuse enhancement involving the right side of the inferior aspect of L3 and superior aspect of L4 as well as diffuse enhancement along the epidural space anterior to the thecal sac from the top of L3 through the bottom of L4 and focal enhancement of the posterior aspect of the L3-4 disc space. The findings are suggestive of acute discitis at L3-4 with associated osteomyelitis of L3 and L4 and small epidural abscess. Clinical correlation is recommended. Severe right neural foraminal narrowing and moderate to severe left neural foraminal narrowing is noted at L3-4. Ortega Rutherford MD Objective Remarks GENERAL: This is a well-nourished, well-developed patient, in no apparent distress. CARDIOVASCULAR: Regular rate and irregular rhythm without murmurs, gallops, or rubs. RESPIRATORY: Clear to auscultation. Breath sounds equal bilaterally. No wheezes , rales, or rhonchi. GASTROINTESTINAL: Abdomen soft, non-tender, nondistended. Normal, active bowel sounds MUSCULOSKELETAL: Extremities without clubbing, cyanosis, or edema. NEURO: Alert & Oriented x4 to person, place, time, situation. Moves all ext x4 Procedures paravertebral needle aspiration. Medications and IVs Current Medications Lidocaine/ Epinephrine (Xylocaine-Epi 1%-1:100,000 Inj) 10 ml ONCE ONCE INFIL Last administered on 07/19/16 13:23; Start 07/19/16 at 11:45; Stop 07/19/16 at 11:46; Status DC Ketorolac Tromethamine (Toradol Inj) 30 mg ONCE ONCE IV PUSH Last administered on 07/19/16 12:17; Start 07/19/16 at 11:45; Stop 07/19/16 at 11:46 ; Status DC Gadodiamide 15 ml 15 ml STK-MED ONCE IV Last administered on 07/19/16 15:10; Start 07/19/16 at 15:10; Stop 07/19/16 at 15:11; Status DC Piperacillin Sod/ Tazobactam Sod 100 ml @ 200 mls/hr ONCE STAT IV ; Start at 15:56; Stop 07/19/16 at 16:25; Status Cancel Vancomycin HCl 1000 mg/Sodium Chloride 250 ml @ 250 mls/hr ONCE STAT IV ; Start 07/19/16 at 15:56; Stop 07/19/16 at 16:55; Status Cancel Sodium Chloride (NS 1000 ml Inj) 1,000 ml @ 100 mls/hr Q10H IV Last administered on 07/22/16 04:32; Start 07/19/16 at 16:32 Sodium Chloride (NS Flush) 2 ml UNSCH PRN IV FLUSH FLUSH AFTER USING IV ACCESS ; Start 07/19/16 at 16:45 Sodium Chloride (NS Flush) 2 ml BID IV FLUSH Last administered on 07/21/16 22: 57; Start 07/19/16 at 21:00 Ondansetron HCl (Zofran Inj) 4 mg Q6H PRN IVP NAUSEA OR VOMITING; Start at 16:45 Naloxone HCl (Narcan Inj) 0.4 mg UNSCH PRN IV SEE LABEL COMMENTS; Start at 16:45 Midazolam HCl (Versed Inj) 5 mg STK-MED ONCE .ROUTE Last administered on 18:06; Start 07/19/16 at 18:06; Stop 07/19/16 at 18:07; Status DC Fentanyl Citrate (fentaNYL INJ) 250 mcg STK-MED ONCE .ROUTE Last administered on 07/19/16 18:06; Start 07/19/16 at 18:06; Stop 07/19/16 at 18:07; Status DC Lidocaine/ Epinephrine (Xylocaine-Epi 1%-1:100,000 Inj) 20 ml STK-MED ONCE .ROUTE Last administered on 07/19/16 18:08; Start 07/19/16 at 18:08; Stop at 18:09; Status DC Ketorolac Tromethamine (Toradol Inj) 30 mg Q6H PRN IV PUSH pain >5 Last administered on 07/21/16 22:57; Start 07/19/16 at 23:45; Stop 07/24/16 at 23:44 Acetaminophen (Tylenol) 650 mg Q4H PRN PO pain <5 Last administered on 21:55; Start 07/19/16 at 23:45 Hydromorphone HCl 0.2 mg 0.2 mg ONCE ONCE IV PUSH Last administered on 23:50; Start 07/19/16 at 23:45; Stop 07/19/16 at 23:46; Status DC Vancomycin HCl 1000 mg/Sodium Chloride 250 ml @ 250 mls/hr Q12H IV Last administered on 07/22/16 01:50; Start 07/20/16 at 13:00 Levofloxacin/ Dextrose 150 ml @ 100 mls/hr Q24H IV Last administered on 15:04; Start 07/20/16 at 15:00 Cefepime HCl/ Sodium Chloride (Maxipime Inj/NS Inj) 100 ml @ 200 mls/hr Q8H IV Last administered on 07/22/16 01:51; Start 07/21/16 at 02:00 A/P Assessment and Plan A/P Acute discitis at L3-4 with associated osteomyelitis of L3 and L4 and small epidural abscess -MRI of the lumbar suggestive of acute discitis at L3-4 with associated osteomyelitis of L3 and L4 and small epidural abscess. Severe right neural foraminal narrowing and moderate to severe left neural foraminal narrowing is noted at L3-4. --Status post CT-guided drainage of the small epidural abscess on 07/19/2016 culture growing pantoea agglomerans which is pansensitive. So far blood cultures are negative. -neurosurgery consult appreciated; no further surgical intervention at this time. -Per infectious disease continue Levaquin, vancomycin, and cefepime. and anticipate repeat imaging studies next week, earlier if clinical deterioration Left arm abscess -Most likely secondary to IV drug use. Status post I&D in emergency department . -Wound culture grew MRSA. Patient is currently on vancomycin. IVDU with "everything" including prescription, heroine, cocaine -education given on harmful effects of IVDU. Patient stated she wants to be tested for hepatitis but declined HIV testing. hepatitis panel with reactive Hep C and anti HBc; will check anti HBs and AST/ ALT. DVT prophylaxis -SCDs. Roman Singh MD Jul 22, 2016 09:13
[2016-07-22 12:00] VITALS: BP 109/63; PULSE 63; RESP 16; TEMP 97.1; O2SAT 98
[2016-07-22 13:04] LABS: ALT (GPT) 72 U/L (10-53); AST (GOT) 72 U/L (15-37)
[2016-07-22] MEDS: LEVOFLOXACIN 750 MG PREMIX INJ 150 ML IV SCH (14:01)
[2016-07-22] MEDS: ACETAMINOPHEN 325 MG TAB PO PRN (14:02)
[2016-07-22 16:00] VITALS: BP 99/58; PULSE 72; RESP 16; TEMP 97.8; O2SAT 99
[2016-07-22 20:00] VITALS: BP 111/63; PULSE 63; RESP 18; TEMP 97.4; O2SAT 97
--- NOTE | 2016-07-22 23:09 | HHI.IDPN ---
Subjective Subjective Remarks delayed entry pt was seen earlier today around 1500 co back pain co L forearm pain no fever Antibiotics vanoc cefepime levaquine Allergies: Coded Allergies: *MDRO Multi-Drug Resistant Organism (Verified Adverse Reaction, Unknown, ) 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 Objective . Vital Signs Date Time Temp Pulse Resp B/P Pulse Ox O2 Delivery O2 Flow Rate FiO2 07/22/16 20:00 97.4 63 18 111/63 97 07/22/16 16:00 97.8 72 16 99/58 99 07/22/16 12:00 97.1 63 16 109/63 98 07/22/16 08:00 97.7 68 16 106/65 98 07/22/16 04:00 97.8 63 20 100/56 97 07/22/16 00:00 97.6 66 20 101/71 98 07/21/16 07/21/16 07/22/16 15:00 23:00 07:00 Intake Total 240 ml 240 ml Balance 240 ml 240 ml Intake Oral 240 ml 240 ml # Voids 2 2 2 # Bowel Movements 0 . Laboratory Tests Test 07/21/16 07:15 White Blood Count 5.5 TH/MM3 Red Blood Count 4.06 MIL/MM3 Hemoglobin 10.9 GM/DL Hematocrit 34.1 % Mean Corpuscular Volume 83.9 FL Mean Corpuscular Hemoglobin 26.9 PG Mean Corpuscular Hemoglobin 32.1 % Concent Red Cell Distribution Width 15.3 % Platelet Count 168 TH/MM3 Mean Platelet Volume 9.3 FL Laboratory Tests Test 07/21/16 07/22/16 07:15 12:08 Sodium Level 142 MEQ/L Potassium Level 3.7 MEQ/L Chloride Level 112 MEQ/L Carbon Dioxide Level 22.6 MEQ/L Anion Gap 7 MEQ/L Blood Urea Nitrogen 6 MG/DL Creatinine 0.52 MG/DL Estimat Glomerular Filtration 147 ML/MIN Rate Random Glucose 83 MG/DL Calcium Level 8.2 MG/DL Aspartate Amino Transf 72 U/L (AST/SGOT) Alanine Aminotransferase 72 U/L (ALT/SGPT) Imaging Last Impressions Needle Aspiration CT 07/19/16 0000 Signed Impressions: Service Date/Time: Tuesday, July 19, 2016 18:27 - CONCLUSION: Uncomplicated paravertebral FNA as above. Humberto Rodriguez MD Lumbar Spine MRI 07/19/16 0000 Signed Impressions: Service Date/Time: Tuesday, July 19, 2016 14:15 - CONCLUSION: Marrow edema and diffuse enhancement involving the right side of the inferior aspect of L3 and superior aspect of L4 as well as diffuse enhancement along the epidural space anterior to the thecal sac from the top of L3 through the bottom of L4 and focal enhancement of the posterior aspect of the L3-4 disc space. The findings are suggestive of acute discitis at L3-4 with associated osteomyelitis of L3 and L4 and small epidural abscess. Clinical correlation is recommended. Severe right neural foraminal narrowing and moderate to severe left neural foraminal narrowing is noted at L3-4. Ortega Rutherford MD Physical Exam CONSTITUTIONAL/GENERAL: This is an adequately nourished patient, in mild distress 2/2 pain TUBES/LINES/DRAINS: SKIN: No jaundice, rashes, or lesions. Skin temperature appropriate. Not diaphoretic. EYES: Pupils equal and round and reactive. Extraocular motions intact. No scleral icterus. No injection or drainage. Fundi not examined. CARDIOVASCULAR: Regular rate and rhythm without murmurs, gallops, or rubs. No JVD. Peripheral pulses symmetric. RESPIRATORY/CHEST: Symmetric, unlabored respirations. Clear to auscultation. Breath sounds equal bilaterally. No wheezes, rales, or rhonchi. GASTROINTESTINAL: Abdomen soft, non-tender, nondistended. Bowel sounds present. MUSCULOSKELETAL: Extremities without clubbing, cyanosis, or edema.. No mottling or clubbing. L forearm with small wound, healing nicely packing in place wih minimal drainage BACK: not tender to palpation NEUROLOGICAL: Awake and alert. Motor and sensory grossly within normal limits. Follows commands. Normal speech. Moves all extremities 5/5 strengh PSYCHIATRIC: calm and cooperative Assessment & Plan Remarks IVDU acute discitis with associated osteomyelitis of L3 and L4 and small epidural abscess, PANTOEA AGGLOMERANS L forearm abscess aw IVDU dc vancomycin - PO clindamycin cont levaquin po dc cefepime 2 gm q 8 hrs start CFTX monitor clincially will need repeat imaging studies next week, earlier if clinical deterioration Beverley Fiore MD Jul 22, 2016 23:09
[2016-07-23] VITALS: BP 110/63; PULSE 59; RESP 20; TEMP 97.7; O2SAT 97
[2016-07-23] MEDS: CLINDAMYCIN 150 MG CAP PO SCH ×4 (00:51→16:59)
[2016-07-23] MEDS: cefTRIAXone INJ 2,000 MG in SODIUM CHLORIDE 0.9% INJ 100 ML IV SCH (00:51)
[2016-07-23] MEDS: ACETAMINOPHEN 325 MG TAB PO PRN (01:38)
[2016-07-23 04:00] VITALS: BP 99/55; PULSE 62; RESP 18; TEMP 97.6; O2SAT 93
[2016-07-23] MEDS: KETOROLAC TROMETHAMINE 30 MG/ML (IVP) VIAL IV PUSH PRN ×3 (04:03→23:21)
[2016-07-23] MEDS: SODIUM CHLOR 0.9% 1000 ML INJ 1,000 ML IV SCH ×3 (05:52→21:06)
[2016-07-23] MEDS: SODIUM CHLORIDE 0.9% FLUSH 10 ML FLUSH IV FLUSH SCH ×2 (09:00→21:00)
[2016-07-23] MEDS: LEVOFLOXACIN 750 MG TAB PO SCH (09:01)
[2016-07-23 10:18] VITALS: BP 100/55; PULSE 60; RESP 18; TEMP 96.8; O2SAT 97
[2016-07-23 12:27] VITALS: BP 112/68; PULSE 69; RESP 18; TEMP 96.4; O2SAT 100
--- NOTE | 2016-07-23 12:29 | HHI.PR ---
Subjective Remarks resting comfortably with no distres. back pain is fairly controlled. no new complaints. Objective Vitals Vital Signs Date Time Temp Pulse Resp B/P Pulse Ox O2 Delivery O2 Flow Rate FiO2 07/23/16 10:18 96.8 60 18 100/55 97 07/23/16 04:00 97.6 62 18 99/55 93 07/23/16 00:00 97.7 59 20 110/63 97 07/22/16 20:00 97.4 63 18 111/63 97 07/22/16 16:00 97.8 72 16 99/58 99 I/O 07/22/16 07/22/16 07/22/16 07/23/16 07/23/16 07/23/16 07:00 15:00 23:00 07:00 15:00 23:00 Intake Total 480 ml 2297 ml 975 ml Balance 480 ml 2297 ml 975 ml Intake Oral 480 ml IV Total 2297 ml 975 ml # Voids 2 3 Result Diagram: 07/21/16 0715 07/21/16 0715 Imaging Last Impressions Needle Aspiration CT 07/19/16 0000 Signed Impressions: Service Date/Time: Tuesday, July 19, 2016 18:27 - CONCLUSION: Uncomplicated paravertebral FNA as above. Humberto Rodriguez MD Lumbar Spine MRI 07/19/16 0000 Signed Impressions: Service Date/Time: Tuesday, July 19, 2016 14:15 - CONCLUSION: Marrow edema and diffuse enhancement involving the right side of the inferior aspect of L3 and superior aspect of L4 as well as diffuse enhancement along the epidural space anterior to the thecal sac from the top of L3 through the bottom of L4 and focal enhancement of the posterior aspect of the L3-4 disc space. The findings are suggestive of acute discitis at L3-4 with associated osteomyelitis of L3 and L4 and small epidural abscess. Clinical correlation is recommended. Severe right neural foraminal narrowing and moderate to severe left neural foraminal narrowing is noted at L3-4. Ortega Rutherford MD Objective Remarks GENERAL: This is a well-nourished, well-developed patient, in no apparent distress. CARDIOVASCULAR: Regular rate and irregular rhythm without murmurs, gallops, or rubs. RESPIRATORY: Clear to auscultation. Breath sounds equal bilaterally. No wheezes , rales, or rhonchi. GASTROINTESTINAL: Abdomen soft, non-tender, nondistended. Normal, active bowel sounds MUSCULOSKELETAL: Extremities without clubbing, cyanosis, or edema. NEURO: Alert & Oriented x4 to person, place, time, situation. Moves all ext x4 Procedures paravertebral needle aspiration. Medications and IVs Current Medications Lidocaine/ Epinephrine (Xylocaine-Epi 1%-1:100,000 Inj) 10 ml ONCE ONCE INFIL Last administered on 07/19/16 13:23; Start 07/19/16 at 11:45; Stop 07/19/16 at 11:46; Status DC Ketorolac Tromethamine (Toradol Inj) 30 mg ONCE ONCE IV PUSH Last administered on 07/19/16 12:17; Start 07/19/16 at 11:45; Stop 07/19/16 at 11:46 ; Status DC Gadodiamide 15 ml 15 ml STK-MED ONCE IV Last administered on 07/19/16 15:10; Start 07/19/16 at 15:10; Stop 07/19/16 at 15:11; Status DC Piperacillin Sod/ Tazobactam Sod 100 ml @ 200 mls/hr ONCE STAT IV ; Start at 15:56; Stop 07/19/16 at 16:25; Status Cancel Vancomycin HCl 1000 mg/Sodium Chloride 250 ml @ 250 mls/hr ONCE STAT IV ; Start 07/19/16 at 15:56; Stop 07/19/16 at 16:55; Status Cancel Sodium Chloride (NS 1000 ml Inj) 1,000 ml @ 100 mls/hr Q10H IV Last administered on 07/23/16 09:02; Start 07/19/16 at 16:32 Sodium Chloride (NS Flush) 2 ml UNSCH PRN IV FLUSH FLUSH AFTER USING IV ACCESS ; Start 07/19/16 at 16:45 Sodium Chloride (NS Flush) 2 ml BID IV FLUSH Last administered on 07/22/16 20: 44; Start 07/19/16 at 21:00 Ondansetron HCl (Zofran Inj) 4 mg Q6H PRN IVP NAUSEA OR VOMITING; Start at 16:45 Naloxone HCl (Narcan Inj) 0.4 mg UNSCH PRN IV SEE LABEL COMMENTS; Start at 16:45 Midazolam HCl (Versed Inj) 5 mg STK-MED ONCE .ROUTE Last administered on 18:06; Start 07/19/16 at 18:06; Stop 07/19/16 at 18:07; Status DC Fentanyl Citrate (fentaNYL INJ) 250 mcg STK-MED ONCE .ROUTE Last administered on 07/19/16 18:06; Start 07/19/16 at 18:06; Stop 07/19/16 at 18:07; Status DC Lidocaine/ Epinephrine (Xylocaine-Epi 1%-1:100,000 Inj) 20 ml STK-MED ONCE .ROUTE Last administered on 07/19/16 18:08; Start 07/19/16 at 18:08; Stop at 18:09; Status DC Ketorolac Tromethamine (Toradol Inj) 30 mg Q6H PRN IV PUSH pain >5 Last administered on 07/23/16 04:03; Start 07/19/16 at 23:45; Stop 07/24/16 at 23:44 Acetaminophen (Tylenol) 650 mg Q4H PRN PO pain <5 Last administered on 01:38; Start 07/19/16 at 23:45 Hydromorphone HCl 0.2 mg 0.2 mg ONCE ONCE IV PUSH Last administered on 23:50; Start 07/19/16 at 23:45; Stop 07/19/16 at 23:46; Status DC Vancomycin HCl 1000 mg/Sodium Chloride 250 ml @ 250 mls/hr Q12H IV Last administered on 07/22/16 12:27; Start 07/20/16 at 13:00; Stop 07/22/16 at 23:10 ; Status DC Levofloxacin/ Dextrose 150 ml @ 100 mls/hr Q24H IV Last administered on 14:01; Start 07/20/16 at 15:00; Stop 07/22/16 at 23:11; Status DC Cefepime HCl 2000 mg/Sodium Chloride 100 ml @ 200 mls/hr Q8H IV Last administered on 07/22/16 16:52; Start 07/21/16 at 02:00; Stop 07/22/16 at 23:11 ; Status DC Ceftriaxone Sodium/Sodium Chloride (Rocephin Inj/NS Inj) 100 ml @ 200 mls/hr Q24H IV Last administered on 07/23/16 00:51; Start 07/23/16 at 00:00 Levofloxacin (Levaquin) 750 mg DAILY PO Last administered on 07/23/16 09:01; Start 07/23/16 at 09:00 Clindamycin HCl (Cleocin) 300 mg Q6H PO Last administered on 07/23/16 11:08; Start 07/23/16 at 00:00 A/P Assessment and Plan A/P Acute discitis at L3-4 with associated osteomyelitis of L3 and L4 and small epidural abscess -MRI of the lumbar suggestive of acute discitis at L3-4 with associated osteomyelitis of L3 and L4 and small epidural abscess. Severe right neural foraminal narrowing and moderate to severe left neural foraminal narrowing is noted at L3-4. --Status post CT-guided drainage of the small epidural abscess on 07/19/2016 culture growing pantoea agglomerans which is pansensitive. So far blood cultures are negative. -neurosurgery consult appreciated; no further surgical intervention at this time. -on levaquin, clindamycin and IV Rocephin and anticipate repeat imaging studies next week, earlier if clinical deterioration. -ID following. Left arm abscess -Most likely secondary to IV drug use. Status post I&D in emergency department . -Wound culture grew MRSA. Patient is currently on vancomycin. IVDU with "everything" including prescription, heroine, cocaine -education given on harmful effects of IVDU. Patient stated she wants to be tested for hepatitis but declined HIV testing. elevated LFT's- due to Hep C.- f/u as outpatient. DVT prophylaxis -SCDs. Roman Singh MD Jul 23, 2016 12:29
[2016-07-23 18:53] VITALS: BP 107/59; PULSE 61; RESP 18; TEMP 97.4; O2SAT 98
[2016-07-23 20:00] VITALS: BP 116/65; PULSE 72; RESP 22; TEMP 97.2; O2SAT 100
[2016-07-24] VITALS: BP 112/69; PULSE 70; RESP 24; TEMP 98.1; O2SAT 99
[2016-07-24] MEDS: cefTRIAXone INJ 2,000 MG in SODIUM CHLORIDE 0.9% INJ 100 ML IV SCH ×2 (00:31→23:57)
[2016-07-24] MEDS: CLINDAMYCIN 150 MG CAP PO SCH ×5 (00:31→23:56)
[2016-07-24 04:00] VITALS: BP 97/58; PULSE 58; RESP 22; TEMP 98.8; O2SAT 100
[2016-07-24] MEDS: SODIUM CHLOR 0.9% 1000 ML INJ 1,000 ML IV SCH ×2 (05:50→15:54)
[2016-07-24] MEDS: KETOROLAC TROMETHAMINE 30 MG/ML (IVP) VIAL IV PUSH PRN ×3 (06:24→20:52)
[2016-07-24 07:47] VITALS: BP 101/56; PULSE 60; RESP 18; TEMP 96.1; O2SAT 100
[2016-07-24] MEDS: SODIUM CHLORIDE 0.9% FLUSH 10 ML FLUSH IV FLUSH SCH ×2 (08:27→20:53)
[2016-07-24] MEDS: LEVOFLOXACIN 750 MG TAB PO SCH (08:27)
--- NOTE | 2016-07-24 11:21 | HHI.PR ---
Subjective Remarks resting comfortably with no distress. afebrile. pain is controlled. no new complaints. Objective Vitals Vital Signs Date Time Temp Pulse Resp B/P Pulse Ox O2 Delivery O2 Flow Rate FiO2 07/24/16 07:47 96.1 60 18 101/56 100 07/24/16 04:00 98.8 58 22 97/58 100 07/24/16 00:00 98.1 70 24 112/69 99 07/23/16 20:00 97.2 72 22 116/65 100 07/23/16 18:53 97.4 61 18 107/59 98 07/23/16 12:27 96.4 69 18 112/68 100 I/O 07/23/16 07/23/16 07/23/16 07/24/16 07/24/16 07/24/16 07:00 15:00 23:00 07:00 15:00 23:00 Intake Total 975 ml 118 ml Balance 975 ml 118 ml Intake Oral 118 ml IV Total 975 ml # Voids 12 # Bowel Movements 1 Result Diagram: 07/21/16 0715 07/21/16 0715 Imaging Last Impressions Needle Aspiration CT 07/19/16 0000 Signed Impressions: Service Date/Time: Tuesday, July 19, 2016 18:27 - CONCLUSION: Uncomplicated paravertebral FNA as above. Humberto Rodriguez MD Lumbar Spine MRI 07/19/16 0000 Signed Impressions: Service Date/Time: Tuesday, July 19, 2016 14:15 - CONCLUSION: Marrow edema and diffuse enhancement involving the right side of the inferior aspect of L3 and superior aspect of L4 as well as diffuse enhancement along the epidural space anterior to the thecal sac from the top of L3 through the bottom of L4 and focal enhancement of the posterior aspect of the L3-4 disc space. The findings are suggestive of acute discitis at L3-4 with associated osteomyelitis of L3 and L4 and small epidural abscess. Clinical correlation is recommended. Severe right neural foraminal narrowing and moderate to severe left neural foraminal narrowing is noted at L3-4. Ortega Rutherford MD Objective Remarks GENERAL: This is a well-nourished, well-developed patient, in no apparent distress. CARDIOVASCULAR: Regular rate and irregular rhythm without murmurs, gallops, or rubs. RESPIRATORY: Clear to auscultation. Breath sounds equal bilaterally. No wheezes , rales, or rhonchi. GASTROINTESTINAL: Abdomen soft, non-tender, nondistended. Normal, active bowel sounds MUSCULOSKELETAL: Extremities without clubbing, cyanosis, or edema. NEURO: Alert & Oriented x4 to person, place, time, situation. Moves all ext x4 Procedures paravertebral needle aspiration. Medications and IVs Current Medications Lidocaine/ Epinephrine (Xylocaine-Epi 1%-1:100,000 Inj) 10 ml ONCE ONCE INFIL Last administered on 07/19/16 13:23; Start 07/19/16 at 11:45; Stop 07/19/16 at 11:46; Status DC Ketorolac Tromethamine (Toradol Inj) 30 mg ONCE ONCE IV PUSH Last administered on 07/19/16 12:17; Start 07/19/16 at 11:45; Stop 07/19/16 at 11:46 ; Status DC Gadodiamide 15 ml 15 ml STK-MED ONCE IV Last administered on 07/19/16 15:10; Start 07/19/16 at 15:10; Stop 07/19/16 at 15:11; Status DC Piperacillin Sod/ Tazobactam Sod 100 ml @ 200 mls/hr ONCE STAT IV ; Start at 15:56; Stop 07/19/16 at 16:25; Status Cancel Vancomycin HCl 1000 mg/Sodium Chloride 250 ml @ 250 mls/hr ONCE STAT IV ; Start 07/19/16 at 15:56; Stop 07/19/16 at 16:55; Status Cancel Sodium Chloride (NS 1000 ml Inj) 1,000 ml @ 100 mls/hr Q10H IV Last administered on 07/24/16 05:50; Start 07/19/16 at 16:32 Sodium Chloride (NS Flush) 2 ml UNSCH PRN IV FLUSH FLUSH AFTER USING IV ACCESS ; Start 07/19/16 at 16:45 Sodium Chloride (NS Flush) 2 ml BID IV FLUSH Last administered on 07/22/16 20: 44; Start 07/19/16 at 21:00 Ondansetron HCl (Zofran Inj) 4 mg Q6H PRN IVP NAUSEA OR VOMITING; Start at 16:45 Naloxone HCl (Narcan Inj) 0.4 mg UNSCH PRN IV SEE LABEL COMMENTS; Start at 16:45 Midazolam HCl (Versed Inj) 5 mg STK-MED ONCE .ROUTE Last administered on 18:06; Start 07/19/16 at 18:06; Stop 07/19/16 at 18:07; Status DC Fentanyl Citrate (fentaNYL INJ) 250 mcg STK-MED ONCE .ROUTE Last administered on 07/19/16 18:06; Start 07/19/16 at 18:06; Stop 07/19/16 at 18:07; Status DC Lidocaine/ Epinephrine (Xylocaine-Epi 1%-1:100,000 Inj) 20 ml STK-MED ONCE .ROUTE Last administered on 07/19/16 18:08; Start 07/19/16 at 18:08; Stop at 18:09; Status DC Ketorolac Tromethamine (Toradol Inj) 30 mg Q6H PRN IV PUSH pain >5 Last administered on 07/24/16 06:24; Start 07/19/16 at 23:45; Stop 07/24/16 at 23:44 Acetaminophen (Tylenol) 650 mg Q4H PRN PO pain <5 Last administered on 01:38; Start 07/19/16 at 23:45 Hydromorphone HCl 0.2 mg 0.2 mg ONCE ONCE IV PUSH Last administered on 23:50; Start 07/19/16 at 23:45; Stop 07/19/16 at 23:46; Status DC Vancomycin HCl 1000 mg/Sodium Chloride 250 ml @ 250 mls/hr Q12H IV Last administered on 07/22/16 12:27; Start 07/20/16 at 13:00; Stop 07/22/16 at 23:10 ; Status DC Levofloxacin/ Dextrose 150 ml @ 100 mls/hr Q24H IV Last administered on 14:01; Start 07/20/16 at 15:00; Stop 07/22/16 at 23:11; Status DC Cefepime HCl 2000 mg/Sodium Chloride 100 ml @ 200 mls/hr Q8H IV Last administered on 07/22/16 16:52; Start 07/21/16 at 02:00; Stop 07/22/16 at 23:11 ; Status DC Ceftriaxone Sodium/Sodium Chloride (Rocephin Inj/NS Inj) 100 ml @ 200 mls/hr Q24H IV Last administered on 07/24/16 00:31; Start 07/23/16 at 00:00 Levofloxacin (Levaquin) 750 mg DAILY PO Last administered on 07/24/16 08:27; Start 07/23/16 at 09:00 Clindamycin HCl (Cleocin) 300 mg Q6H PO Last administered on 07/24/16 05:49; Start 07/23/16 at 00:00 A/P Assessment and Plan A/P Acute discitis at L3-4 with associated osteomyelitis of L3 and L4 and small epidural abscess -MRI of the lumbar suggestive of acute discitis at L3-4 with associated osteomyelitis of L3 and L4 and small epidural abscess. Severe right neural foraminal narrowing and moderate to severe left neural foraminal narrowing is noted at L3-4. --Status post CT-guided drainage of the small epidural abscess on 07/19/2016 culture growing pantoea agglomerans which is pansensitive. So far blood cultures are negative. -neurosurgery consult appreciated; no further surgical intervention at this time. -on levaquin, clindamycin and IV Rocephin and anticipate repeat imaging studies this week. -ID following. Left arm abscess -Most likely secondary to IV drug use. Status post I&D in emergency department . -Wound culture grew MRSA. Patient is currently on vancomycin. IVDU with "everything" including prescription, heroine, cocaine -education given on harmful effects of IVDU. Patient stated she wants to be tested for hepatitis but declined HIV testing. elevated LFT's- due to Hep C.- f/u as outpatient. DVT prophylaxis -SCDs. Roman Singh MD Jul 24, 2016 11:21
[2016-07-24 12:00] VITALS: BP 102/52; PULSE 68; RESP 18; TEMP 96.4; O2SAT 100
[2016-07-24 16:06] VITALS: BP 111/62; PULSE 67; RESP 18; TEMP 97.6; O2SAT 97
[2016-07-24 22:30] VITALS: BP 112/55; PULSE 65; RESP 16; TEMP 98.9; O2SAT 100
[2016-07-25] VITALS (7 sets, daily range): BP systolic 87–118; BP diastolic 42–77; PULSE 51–70; RESP 17–20; TEMP 96.2–98.5; O2SAT 69–100
[2016-07-25] MEDS: SODIUM CHLOR 0.9% 1000 ML INJ 1,000 ML IV SCH ×3 (02:39→22:32)
[2016-07-25] MEDS: ACETAMINOPHEN 325 MG TAB PO PRN ×3 (02:42→21:25)
[2016-07-25] MEDS: CLINDAMYCIN 150 MG CAP PO SCH ×4 (05:23→23:48)
[2016-07-25] MEDS: SODIUM CHLORIDE 0.9% FLUSH 10 ML FLUSH IV FLUSH SCH ×2 (07:53→21:00)
[2016-07-25] MEDS: LEVOFLOXACIN 750 MG TAB PO SCH (07:53)
--- NOTE | 2016-07-25 09:46 | HHI.PR ---
Subjective Remarks in no acute distress. afebrile. complaining of back muscle spasms. d/w the RN and no other acute issues over night. Objective Vitals Vital Signs Date Time Temp Pulse Resp B/P Pulse Ox O2 Delivery O2 Flow Rate FiO2 07/25/16 08:29 96.7 51 20 87/42 99 07/25/16 07:53 98/60 07/25/16 05:45 97.7 64 17 110/66 100 07/25/16 00:30 98.1 66 17 115/60 100 07/24/16 22:30 98.9 65 16 112/55 100 07/24/16 16:06 97.6 67 18 111/62 97 07/24/16 12:00 96.4 68 18 102/52 100 I/O 07/24/16 07/24/16 07/24/16 07/25/16 07/25/16 07/25/16 07:00 15:00 23:00 07:00 15:00 23:00 Intake Total 480 ml 1000 ml 1900 ml Balance 480 ml 1000 ml 1900 ml Intake Oral 480 ml 1000 ml 700 ml IV Total 1200 ml # Voids 3 1 2 # Bowel Movements 1 0 0 Result Diagram: 07/21/16 0715 07/21/16 0715 Imaging Last Impressions Needle Aspiration CT 07/19/16 0000 Signed Impressions: Service Date/Time: Tuesday, July 19, 2016 18:27 - CONCLUSION: Uncomplicated paravertebral FNA as above. Humberto Rodriguez MD Lumbar Spine MRI 07/19/16 0000 Signed Impressions: Service Date/Time: Tuesday, July 19, 2016 14:15 - CONCLUSION: Marrow edema and diffuse enhancement involving the right side of the inferior aspect of L3 and superior aspect of L4 as well as diffuse enhancement along the epidural space anterior to the thecal sac from the top of L3 through the bottom of L4 and focal enhancement of the posterior aspect of the L3-4 disc space. The findings are suggestive of acute discitis at L3-4 with associated osteomyelitis of L3 and L4 and small epidural abscess. Clinical correlation is recommended. Severe right neural foraminal narrowing and moderate to severe left neural foraminal narrowing is noted at L3-4. Ortega Rutherford MD Objective Remarks GENERAL: This is a well-nourished, well-developed patient, in no apparent distress. CARDIOVASCULAR: Regular rate and irregular rhythm without murmurs, gallops, or rubs. RESPIRATORY: Clear to auscultation. Breath sounds equal bilaterally. No wheezes , rales, or rhonchi. GASTROINTESTINAL: Abdomen soft, non-tender, nondistended. Normal, active bowel sounds MUSCULOSKELETAL: Extremities without clubbing, cyanosis, or edema. NEURO: Alert & Oriented x4 to person, place, time, situation. Moves all ext x4 Procedures paravertebral needle aspiration. Medications and IVs Current Medications Lidocaine/ Epinephrine (Xylocaine-Epi 1%-1:100,000 Inj) 10 ml ONCE ONCE INFIL Last administered on 07/19/16 13:23; Start 07/19/16 at 11:45; Stop 07/19/16 at 11:46; Status DC Ketorolac Tromethamine (Toradol Inj) 30 mg ONCE ONCE IV PUSH Last administered on 07/19/16 12:17; Start 07/19/16 at 11:45; Stop 07/19/16 at 11:46 ; Status DC Gadodiamide 15 ml 15 ml STK-MED ONCE IV Last administered on 07/19/16 15:10; Start 07/19/16 at 15:10; Stop 07/19/16 at 15:11; Status DC Piperacillin Sod/ Tazobactam Sod 100 ml @ 200 mls/hr ONCE STAT IV ; Start at 15:56; Stop 07/19/16 at 16:25; Status Cancel Vancomycin HCl 1000 mg/Sodium Chloride 250 ml @ 250 mls/hr ONCE STAT IV ; Start 07/19/16 at 15:56; Stop 07/19/16 at 16:55; Status Cancel Sodium Chloride (NS 1000 ml Inj) 1,000 ml @ 100 mls/hr Q10H IV Last administered on 07/25/16 02:39; Start 07/19/16 at 16:32 Sodium Chloride (NS Flush) 2 ml UNSCH PRN IV FLUSH FLUSH AFTER USING IV ACCESS ; Start 07/19/16 at 16:45 Sodium Chloride (NS Flush) 2 ml BID IV FLUSH Last administered on 07/25/16 07: 53; Start 07/19/16 at 21:00 Ondansetron HCl (Zofran Inj) 4 mg Q6H PRN IVP NAUSEA OR VOMITING; Start at 16:45 Naloxone HCl (Narcan Inj) 0.4 mg UNSCH PRN IV SEE LABEL COMMENTS; Start at 16:45 Midazolam HCl (Versed Inj) 5 mg STK-MED ONCE .ROUTE Last administered on 18:06; Start 07/19/16 at 18:06; Stop 07/19/16 at 18:07; Status DC Fentanyl Citrate (fentaNYL INJ) 250 mcg STK-MED ONCE .ROUTE Last administered on 07/19/16 18:06; Start 07/19/16 at 18:06; Stop 07/19/16 at 18:07; Status DC Lidocaine/ Epinephrine (Xylocaine-Epi 1%-1:100,000 Inj) 20 ml STK-MED ONCE .ROUTE Last administered on 07/19/16 18:08; Start 07/19/16 at 18:08; Stop at 18:09; Status DC Ketorolac Tromethamine (Toradol Inj) 30 mg Q6H PRN IV PUSH pain >5 Last administered on 07/24/16 20:52; Start 07/19/16 at 23:45; Stop 07/24/16 at 23:44 ; Status DC Acetaminophen (Tylenol) 650 mg Q4H PRN PO pain <5 Last administered on 02:42; Start 07/19/16 at 23:45 Hydromorphone HCl 0.2 mg 0.2 mg ONCE ONCE IV PUSH Last administered on 23:50; Start 07/19/16 at 23:45; Stop 07/19/16 at 23:46; Status DC Vancomycin HCl 1000 mg/Sodium Chloride 250 ml @ 250 mls/hr Q12H IV Last administered on 07/22/16 12:27; Start 07/20/16 at 13:00; Stop 07/22/16 at 23:10 ; Status DC Levofloxacin/ Dextrose 150 ml @ 100 mls/hr Q24H IV Last administered on 14:01; Start 07/20/16 at 15:00; Stop 07/22/16 at 23:11; Status DC Cefepime HCl 2000 mg/Sodium Chloride 100 ml @ 200 mls/hr Q8H IV Last administered on 07/22/16 16:52; Start 07/21/16 at 02:00; Stop 07/22/16 at 23:11 ; Status DC Ceftriaxone Sodium/Sodium Chloride (Rocephin Inj/NS Inj) 100 ml @ 200 mls/hr Q24H IV Last administered on 07/24/16 23:57; Start 07/23/16 at 00:00 Levofloxacin (Levaquin) 750 mg DAILY PO Last administered on 07/25/16 07:53; Start 07/23/16 at 09:00 Clindamycin HCl (Cleocin) 300 mg Q6H PO Last administered on 07/25/16 05:23; Start 07/23/16 at 00:00 A/P Assessment and Plan A/P Acute discitis at L3-4 with associated osteomyelitis of L3 and L4 and small epidural abscess -MRI of the lumbar suggestive of acute discitis at L3-4 with associated osteomyelitis of L3 and L4 and small epidural abscess. Severe right neural foraminal narrowing and moderate to severe left neural foraminal narrowing is noted at L3-4. --Status post CT-guided drainage of the small epidural abscess on 07/19/2016 culture growing pantoea agglomerans which is pansensitive. So far blood cultures are negative. -neurosurgery consult appreciated; no further surgical intervention at this time. -on levaquin, clindamycin and IV Rocephin and anticipate repeat imaging studies this week. -ID following. -continue with pain control; baclofen was added for muscle spasms. Left arm abscess-resolved. -Most likely secondary to IV drug use. Status post I&D in emergency department . -Wound culture grew MRSA. Patient is currently on vancomycin. IVDU with "everything" including prescription, heroine, cocaine -education given on harmful effects of IVDU. Patient stated she wants to be tested for hepatitis but declined HIV testing. elevated LFT's- due to Hep C.- f/u as outpatient. DVT prophylaxis -SCDs. Roman Singh MD Jul 25, 2016 09:46
[2016-07-25] MEDS ORDERED: PILL SPLITTER OTHER PRN (10:00)
[2016-07-25] MEDS: BACLOFEN 10 MG TAB PO PRN ×2 (11:47→21:24)
[2016-07-25] MEDS: cefTRIAXone INJ 2,000 MG in SODIUM CHLORIDE 0.9% INJ 100 ML IV SCH (23:48)
[2016-07-26] VITALS: BP 109/64; PULSE 80; RESP 20; TEMP 97.6; O2SAT 98
[2016-07-26 04:00] VITALS: BP 101/55; PULSE 78; RESP 20; TEMP 96.8; O2SAT 98
[2016-07-26] MEDS: ACETAMINOPHEN 325 MG TAB PO PRN ×3 (05:15→23:54)
[2016-07-26] MEDS: CLINDAMYCIN 150 MG CAP PO SCH ×4 (05:15→23:53)
[2016-07-26] MEDS: BACLOFEN 10 MG TAB PO PRN ×3 (05:15→23:54)
[2016-07-26 08:00] VITALS: BP 108/61; PULSE 59; RESP 18; TEMP 96.9; O2SAT 97
[2016-07-26] MEDS: LEVOFLOXACIN 750 MG TAB PO SCH (10:29)
[2016-07-26] MEDS: SODIUM CHLOR 0.9% 1000 ML INJ 1,000 ML IV SCH ×2 (10:30→18:32)
[2016-07-26] MEDS: SODIUM CHLORIDE 0.9% FLUSH 10 ML FLUSH IV FLUSH SCH ×2 (10:30→21:00)
--- NOTE | 2016-07-26 11:17 | HHI.PR ---
Subjective Remarks in no acute distress. pain is fairly controlled. no fever. d/w the RN and no acute issues over night. Objective Vitals Vital Signs Date Time Temp Pulse Resp B/P Pulse Ox O2 Delivery O2 Flow Rate FiO2 07/26/16 08:00 96.9 59 18 108/61 97 07/26/16 04:00 96.8 78 20 101/55 98 07/26/16 00:00 97.6 80 20 109/64 98 07/25/16 20:00 96.2 69 20 118/67 96 07/25/16 16:16 98.5 70 20 118/77 100 07/25/16 12:30 98.3 62 20 108/56 99 I/O 07/25/16 07/25/16 07/25/16 07/26/16 07/26/16 07/26/16 07:00 15:00 23:00 07:00 15:00 23:00 Intake Total 1900 ml 720 ml 240 ml 700 ml Balance 1900 ml 720 ml 240 ml 700 ml Intake Oral 700 ml 720 ml 240 ml IV Total 1200 ml 700 ml # Voids 2 6 5 0 # Bowel Movements 0 1 0 0 Imaging Last Impressions Needle Aspiration CT 07/19/16 0000 Signed Impressions: Service Date/Time: Tuesday, July 19, 2016 18:27 - CONCLUSION: Uncomplicated paravertebral FNA as above. Humberto Rodriguez MD Lumbar Spine MRI 07/19/16 0000 Signed Impressions: Service Date/Time: Tuesday, July 19, 2016 14:15 - CONCLUSION: Marrow edema and diffuse enhancement involving the right side of the inferior aspect of L3 and superior aspect of L4 as well as diffuse enhancement along the epidural space anterior to the thecal sac from the top of L3 through the bottom of L4 and focal enhancement of the posterior aspect of the L3-4 disc space. The findings are suggestive of acute discitis at L3-4 with associated osteomyelitis of L3 and L4 and small epidural abscess. Clinical correlation is recommended. Severe right neural foraminal narrowing and moderate to severe left neural foraminal narrowing is noted at L3-4. Ortega Rutherford MD Objective Remarks GENERAL: This is a well-nourished, well-developed patient, in no apparent distress. CARDIOVASCULAR: Regular rate and irregular rhythm without murmurs, gallops, or rubs. RESPIRATORY: Clear to auscultation. Breath sounds equal bilaterally. No wheezes , rales, or rhonchi. GASTROINTESTINAL: Abdomen soft, non-tender, nondistended. Normal, active bowel sounds MUSCULOSKELETAL: Extremities without clubbing, cyanosis, or edema. NEURO: Alert & Oriented x4 to person, place, time, situation. Moves all ext x4 Procedures paravertebral needle aspiration. Medications and IVs Current Medications Lidocaine/ Epinephrine (Xylocaine-Epi 1%-1:100,000 Inj) 10 ml ONCE ONCE INFIL Last administered on 07/19/16 13:23; Start 07/19/16 at 11:45; Stop 07/19/16 at 11:46; Status DC Ketorolac Tromethamine (Toradol Inj) 30 mg ONCE ONCE IV PUSH Last administered on 07/19/16 12:17; Start 07/19/16 at 11:45; Stop 07/19/16 at 11:46 ; Status DC Gadodiamide 15 ml 15 ml STK-MED ONCE IV Last administered on 07/19/16 15:10; Start 07/19/16 at 15:10; Stop 07/19/16 at 15:11; Status DC Piperacillin Sod/ Tazobactam Sod 100 ml @ 200 mls/hr ONCE STAT IV ; Start at 15:56; Stop 07/19/16 at 16:25; Status Cancel Vancomycin HCl 1000 mg/Sodium Chloride 250 ml @ 250 mls/hr ONCE STAT IV ; Start 07/19/16 at 15:56; Stop 07/19/16 at 16:55; Status Cancel Sodium Chloride (NS 1000 ml Inj) 1,000 ml @ 100 mls/hr Q10H IV Last administered on 07/26/16 10:30; Start 07/19/16 at 16:32 Sodium Chloride (NS Flush) 2 ml UNSCH PRN IV FLUSH FLUSH AFTER USING IV ACCESS ; Start 07/19/16 at 16:45 Sodium Chloride (NS Flush) 2 ml BID IV FLUSH Last administered on 07/26/16 10: 30; Start 07/19/16 at 21:00 Ondansetron HCl (Zofran Inj) 4 mg Q6H PRN IVP NAUSEA OR VOMITING; Start at 16:45 Naloxone HCl (Narcan Inj) 0.4 mg UNSCH PRN IV SEE LABEL COMMENTS; Start at 16:45 Midazolam HCl (Versed Inj) 5 mg STK-MED ONCE .ROUTE Last administered on 18:06; Start 07/19/16 at 18:06; Stop 07/19/16 at 18:07; Status DC Fentanyl Citrate (fentaNYL INJ) 250 mcg STK-MED ONCE .ROUTE Last administered on 07/19/16 18:06; Start 07/19/16 at 18:06; Stop 07/19/16 at 18:07; Status DC Lidocaine/ Epinephrine (Xylocaine-Epi 1%-1:100,000 Inj) 20 ml STK-MED ONCE .ROUTE Last administered on 07/19/16 18:08; Start 07/19/16 at 18:08; Stop at 18:09; Status DC Ketorolac Tromethamine (Toradol Inj) 30 mg Q6H PRN IV PUSH pain >5 Last administered on 07/24/16 20:52; Start 07/19/16 at 23:45; Stop 07/24/16 at 23:44 ; Status DC Acetaminophen (Tylenol) 650 mg Q4H PRN PO pain <5 Last administered on 11:10; Start 07/19/16 at 23:45 Hydromorphone HCl 0.2 mg 0.2 mg ONCE ONCE IV PUSH Last administered on 23:50; Start 07/19/16 at 23:45; Stop 07/19/16 at 23:46; Status DC Vancomycin HCl 1000 mg/Sodium Chloride 250 ml @ 250 mls/hr Q12H IV Last administered on 07/22/16 12:27; Start 07/20/16 at 13:00; Stop 07/22/16 at 23:10 ; Status DC Levofloxacin/ Dextrose 150 ml @ 100 mls/hr Q24H IV Last administered on 14:01; Start 07/20/16 at 15:00; Stop 07/22/16 at 23:11; Status DC Cefepime HCl 2000 mg/Sodium Chloride 100 ml @ 200 mls/hr Q8H IV Last administered on 07/22/16 16:52; Start 07/21/16 at 02:00; Stop 07/22/16 at 23:11 ; Status DC Ceftriaxone Sodium/Sodium Chloride (Rocephin Inj/NS Inj) 100 ml @ 200 mls/hr Q24H IV Last administered on 07/25/16 23:48; Start 07/23/16 at 00:00 Levofloxacin (Levaquin) 750 mg DAILY PO Last administered on 07/26/16 10:29; Start 07/23/16 at 09:00 Clindamycin HCl (Cleocin) 300 mg Q6H PO Last administered on 07/26/16 11:11; Start 07/23/16 at 00:00 Baclofen (Lioresal) 5 mg Q8H PRN PO MUSCLE SPASM Last administered on 05:15; Start 07/25/16 at 09:45 Miscellaneous (Pill Splitter) 1 ea UNSCH PRN OTHER SEE LABEL COMMENTS; Start at 10:00 A/P Assessment and Plan A/P Acute discitis at L3-4 with associated osteomyelitis of L3 and L4 and small epidural abscess -MRI of the lumbar suggestive of acute discitis at L3-4 with associated osteomyelitis of L3 and L4 and small epidural abscess. Severe right neural foraminal narrowing and moderate to severe left neural foraminal narrowing is noted at L3-4. --Status post CT-guided drainage of the small epidural abscess on 07/19/2016 culture growing pantoea agglomerans which is pansensitive. So far blood cultures are negative. -neurosurgery consult appreciated; no further surgical intervention at this time. -on levaquin, clindamycin and IV Rocephin and anticipate repeat imaging studies this week. -ID following. -continue with pain control; baclofen was added for muscle spasms. Left arm abscess-resolved. -Most likely secondary to IV drug use. Status post I&D in emergency department . -Wound culture grew MRSA. Patient is currently on vancomycin. -routine wound care. IVDU with "everything" including prescription, heroine, cocaine -education given on harmful effects of IVDU. Patient stated she wants to be tested for hepatitis but declined HIV testing. elevated LFT's- due to Hep C.- f/u as outpatient. DVT prophylaxis -SCDs. Roman Singh MD Jul 26, 2016 11:17
[2016-07-26 11:35] VITALS: BP 105/66; PULSE 77; RESP 18; TEMP 97.5; O2SAT 96
[2016-07-26 15:30] VITALS: BP 133/81; PULSE 72; RESP 18; TEMP 96.7; O2SAT 100
--- NOTE | 2016-07-26 19:33 | HHI.IDPN ---
Subjective Subjective Remarks delayed entry pt was seen earlier today no L FA pain back hurts when weight bear on RLE afebrile Antibiotics vanoc cefepime levaquine Allergies: Coded Allergies: *MDRO Multi-Drug Resistant Organism (Verified Adverse Reaction, Unknown, ) 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 Objective . Vital Signs Date Time Temp Pulse Resp B/P Pulse Ox O2 Delivery O2 Flow Rate FiO2 07/26/16 15:30 96.7 72 18 133/81 100 07/26/16 11:35 97.5 77 18 105/66 96 07/26/16 08:00 96.9 59 18 108/61 97 07/26/16 04:00 96.8 78 20 101/55 98 07/26/16 00:00 97.6 80 20 109/64 98 07/25/16 20:00 96.2 69 20 118/67 96 07/25/16 07/25/16 07/26/16 15:00 23:00 07:00 Intake Total 720 ml 240 ml 700 ml Balance 720 ml 240 ml 700 ml Intake Oral 720 ml 240 ml IV Total 700 ml # Voids 6 5 0 # Bowel Movements 1 0 0 Imaging Last Impressions Needle Aspiration CT 07/19/16 0000 Signed Impressions: Service Date/Time: Tuesday, July 19, 2016 18:27 - CONCLUSION: Uncomplicated paravertebral FNA as above. Humberto Rodriguez MD Lumbar Spine MRI 07/19/16 0000 Signed Impressions: Service Date/Time: Tuesday, July 19, 2016 14:15 - CONCLUSION: Marrow edema and diffuse enhancement involving the right side of the inferior aspect of L3 and superior aspect of L4 as well as diffuse enhancement along the epidural space anterior to the thecal sac from the top of L3 through the bottom of L4 and focal enhancement of the posterior aspect of the L3-4 disc space. The findings are suggestive of acute discitis at L3-4 with associated osteomyelitis of L3 and L4 and small epidural abscess. Clinical correlation is recommended. Severe right neural foraminal narrowing and moderate to severe left neural foraminal narrowing is noted at L3-4. Ortega Rutherford MD Physical Exam CONSTITUTIONAL/GENERAL: This is an adequately nourished patient, in mild distress 2/2 pain TUBES/LINES/DRAINS: SKIN: No jaundice, rashes, or lesions. Skin temperature appropriate. Not diaphoretic. CARDIOVASCULAR: Regular rate and rhythm without murmurs, gallops, or rubs. No JVD. Peripheral pulses symmetric. RESPIRATORY/CHEST: Symmetric, unlabored respirations. Clear to auscultation. GASTROINTESTINAL: Abdomen soft, non-tender, nondistended. Bowel sounds present. MUSCULOSKELETAL: Extremities without clubbing, cyanosis, or edema.. No mottling or clubbing. L forearm with nearly healed wound, BACK: not tender to palpation NEUROLOGICAL: Awake and alert. Motor and sensory grossly within normal limits. Follows commands. Normal speech. Moves all extremities 5/5 strengh PSYCHIATRIC: pleassant calm and cooperative Assessment & Plan Remarks IVDU acute discitis with associated osteomyelitis of L3 and L4 and small epidural abscess, PANTOEA AGGLOMERANS L forearm abscess aw IVDU MRSA dc vancomycin - complete PO clindamycin this week cont levaquin po cont CFTX for now monitor clinically MRI this week to assess epidural abscess Beverley Fiore MD Jul 26, 2016 19:33
[2016-07-26 21:07] VITALS: BP 104/62; PULSE 66; RESP 20; TEMP 98.2; O2SAT 100
[2016-07-26] MEDS: cefTRIAXone INJ 2,000 MG in SODIUM CHLORIDE 0.9% INJ 100 ML IV SCH (23:53)
[2016-07-27 02:01] VITALS: BP 145/112; PULSE 135; RESP 20; TEMP 99.3; O2SAT 97
[2016-07-27] MEDS: SODIUM CHLOR 0.9% 1000 ML INJ 1,000 ML IV SCH ×2 (04:32→14:32)
[2016-07-27 05:49] VITALS: BP 100/63; PULSE 88; RESP 20; TEMP 97.4; O2SAT 98
[2016-07-27] MEDS: ACETAMINOPHEN 325 MG TAB PO PRN ×2 (06:26→17:38)
[2016-07-27] MEDS: CLINDAMYCIN 150 MG CAP PO SCH ×4 (06:27→23:58)
[2016-07-27] MEDS: BACLOFEN 10 MG TAB PO PRN (06:27)
[2016-07-27 07:34] VITALS: BP 111/68; PULSE 65; RESP 18; TEMP 97.1; O2SAT 96
--- NOTE | 2016-07-27 08:43 | HHI.PR ---
Subjective Remarks in no acute distress. complaining of some pain to the back. no fever. Objective Vitals Vital Signs Date Time Temp Pulse Resp B/P Pulse Ox O2 Delivery O2 Flow Rate FiO2 07/27/16 07:34 97.1 65 18 111/68 96 07/27/16 05:49 97.4 88 20 100/63 98 07/27/16 02:01 99.3 135 20 145/112 97 07/26/16 21:07 98.2 66 20 104/62 100 07/26/16 15:30 96.7 72 18 133/81 100 07/26/16 11:35 97.5 77 18 105/66 96 I/O 07/26/16 07/26/16 07/26/16 07/27/16 07/27/16 07/27/16 07:00 15:00 23:00 07:00 15:00 23:00 Intake Total 700 ml 720 ml Balance 700 ml 720 ml Intake Oral 720 ml IV Total 700 ml # Voids 0 4 1 1 # Bowel Movements 0 0 1 Imaging Last Impressions Needle Aspiration CT 07/19/16 0000 Signed Impressions: Service Date/Time: Tuesday, July 19, 2016 18:27 - CONCLUSION: Uncomplicated paravertebral FNA as above. Humberto Rodriguez MD Lumbar Spine MRI 07/19/16 0000 Signed Impressions: Service Date/Time: Tuesday, July 19, 2016 14:15 - CONCLUSION: Marrow edema and diffuse enhancement involving the right side of the inferior aspect of L3 and superior aspect of L4 as well as diffuse enhancement along the epidural space anterior to the thecal sac from the top of L3 through the bottom of L4 and focal enhancement of the posterior aspect of the L3-4 disc space. The findings are suggestive of acute discitis at L3-4 with associated osteomyelitis of L3 and L4 and small epidural abscess. Clinical correlation is recommended. Severe right neural foraminal narrowing and moderate to severe left neural foraminal narrowing is noted at L3-4. Ortega Rutherford MD Objective Remarks GENERAL: This is a well-nourished, well-developed patient, in no apparent distress. CARDIOVASCULAR: Regular rate and irregular rhythm without murmurs, gallops, or rubs. RESPIRATORY: Clear to auscultation. Breath sounds equal bilaterally. No wheezes , rales, or rhonchi. GASTROINTESTINAL: Abdomen soft, non-tender, nondistended. Normal, active bowel sounds MUSCULOSKELETAL: Extremities without clubbing, cyanosis, or edema. NEURO: Alert & Oriented x4 to person, place, time, situation. Moves all ext x4 Procedures paravertebral needle aspiration. Medications and IVs Current Medications Lidocaine/ Epinephrine (Xylocaine-Epi 1%-1:100,000 Inj) 10 ml ONCE ONCE INFIL Last administered on 07/19/16 13:23; Start 07/19/16 at 11:45; Stop 07/19/16 at 11:46; Status DC Ketorolac Tromethamine (Toradol Inj) 30 mg ONCE ONCE IV PUSH Last administered on 07/19/16 12:17; Start 07/19/16 at 11:45; Stop 07/19/16 at 11:46 ; Status DC Gadodiamide 15 ml 15 ml STK-MED ONCE IV Last administered on 07/19/16 15:10; Start 07/19/16 at 15:10; Stop 07/19/16 at 15:11; Status DC Piperacillin Sod/ Tazobactam Sod 100 ml @ 200 mls/hr ONCE STAT IV ; Start at 15:56; Stop 07/19/16 at 16:25; Status Cancel Vancomycin HCl 1000 mg/Sodium Chloride 250 ml @ 250 mls/hr ONCE STAT IV ; Start 07/19/16 at 15:56; Stop 07/19/16 at 16:55; Status Cancel Sodium Chloride (NS 1000 ml Inj) 1,000 ml @ 100 mls/hr Q10H IV Last administered on 07/26/16 10:30; Start 07/19/16 at 16:32 Sodium Chloride (NS Flush) 2 ml UNSCH PRN IV FLUSH FLUSH AFTER USING IV ACCESS ; Start 07/19/16 at 16:45 Sodium Chloride (NS Flush) 2 ml BID IV FLUSH Last administered on 07/26/16 10: 30; Start 07/19/16 at 21:00 Ondansetron HCl (Zofran Inj) 4 mg Q6H PRN IVP NAUSEA OR VOMITING; Start at 16:45 Naloxone HCl (Narcan Inj) 0.4 mg UNSCH PRN IV SEE LABEL COMMENTS; Start at 16:45 Midazolam HCl (Versed Inj) 5 mg STK-MED ONCE .ROUTE Last administered on 18:06; Start 07/19/16 at 18:06; Stop 07/19/16 at 18:07; Status DC Fentanyl Citrate (fentaNYL INJ) 250 mcg STK-MED ONCE .ROUTE Last administered on 07/19/16 18:06; Start 07/19/16 at 18:06; Stop 07/19/16 at 18:07; Status DC Lidocaine/ Epinephrine (Xylocaine-Epi 1%-1:100,000 Inj) 20 ml STK-MED ONCE .ROUTE Last administered on 07/19/16 18:08; Start 07/19/16 at 18:08; Stop at 18:09; Status DC Ketorolac Tromethamine (Toradol Inj) 30 mg Q6H PRN IV PUSH pain >5 Last administered on 07/24/16 20:52; Start 07/19/16 at 23:45; Stop 07/24/16 at 23:44 ; Status DC Acetaminophen (Tylenol) 650 mg Q4H PRN PO pain <5 Last administered on 06:26; Start 07/19/16 at 23:45 Hydromorphone HCl 0.2 mg 0.2 mg ONCE ONCE IV PUSH Last administered on 23:50; Start 07/19/16 at 23:45; Stop 07/19/16 at 23:46; Status DC Vancomycin HCl 1000 mg/Sodium Chloride 250 ml @ 250 mls/hr Q12H IV Last administered on 07/22/16 12:27; Start 07/20/16 at 13:00; Stop 07/22/16 at 23:10 ; Status DC Levofloxacin/ Dextrose 150 ml @ 100 mls/hr Q24H IV Last administered on 14:01; Start 07/20/16 at 15:00; Stop 07/22/16 at 23:11; Status DC Cefepime HCl 2000 mg/Sodium Chloride 100 ml @ 200 mls/hr Q8H IV Last administered on 07/22/16 16:52; Start 07/21/16 at 02:00; Stop 07/22/16 at 23:11 ; Status DC Ceftriaxone Sodium/Sodium Chloride (Rocephin Inj/NS Inj) 100 ml @ 200 mls/hr Q24H IV Last administered on 07/26/16 23:53; Start 07/23/16 at 00:00 Levofloxacin (Levaquin) 750 mg DAILY PO Last administered on 07/26/16 10:29; Start 07/23/16 at 09:00 Clindamycin HCl (Cleocin) 300 mg Q6H PO Last administered on 07/27/16 06:27; Start 07/23/16 at 00:00 Baclofen (Lioresal) 5 mg Q8H PRN PO MUSCLE SPASM Last administered on 06:27; Start 07/25/16 at 09:45 Miscellaneous (Pill Splitter) 1 ea UNSCH PRN OTHER SEE LABEL COMMENTS; Start at 10:00 A/P Assessment and Plan A/P Acute discitis at L3-4 with associated osteomyelitis of L3 and L4 and small epidural abscess -MRI of the lumbar suggestive of acute discitis at L3-4 with associated osteomyelitis of L3 and L4 and small epidural abscess. Severe right neural foraminal narrowing and moderate to severe left neural foraminal narrowing is noted at L3-4. --Status post CT-guided drainage of the small epidural abscess on 07/19/2016 culture growing pantoea agglomerans which is pansensitive. So far blood cultures are negative. -evaluated by neurosurgery; no further surgical intervention at this time. -on levaquin, clindamycin and IV Rocephin and anticipate repeat imaging studies this week. -ID following. -continue with pain control; continue baclofen- toradol was added. Left arm abscess-resolved. -Most likely secondary to IV drug use. Status post I&D in emergency department . -Wound culture grew MRSA. Patient is currently on vancomycin. -routine wound care. IVDU with "everything" including prescription, heroine, cocaine -education given on harmful effects of IVDU. Patient stated she wants to be tested for hepatitis but declined HIV testing. elevated LFT's- due to Hep C.- f/u as outpatient. DVT prophylaxis -SCDs. Roman Singh MD Jul 27, 2016 08:43
[2016-07-27] MEDS: LEVOFLOXACIN 750 MG TAB PO SCH (09:44)
[2016-07-27] MEDS: SODIUM CHLORIDE 0.9% FLUSH 10 ML FLUSH IV FLUSH SCH ×2 (09:44→23:52)
[2016-07-27] MEDS: KETOROLAC TROMETHAMINE 30 MG/ML (IVP) VIAL IV PUSH PRN ×2 (09:57→18:53)
[2016-07-27 11:35] VITALS: BP 104/59; PULSE 79; RESP 18; TEMP 95.9; O2SAT 98
[2016-07-27 15:40] VITALS: BP 115/64; PULSE 66; RESP 18; TEMP 97.4; O2SAT 97
[2016-07-27 20:00] VITALS: BP 106/70; PULSE 63; RESP 20; TEMP 96.6; O2SAT 100
[2016-07-27] MEDS: cefTRIAXone INJ 2,000 MG in SODIUM CHLORIDE 0.9% INJ 100 ML IV SCH (23:58)
[2016-07-28 01:16] VITALS: BP 107/73; PULSE 72; RESP 20; TEMP 96.6; O2SAT 100
[2016-07-28] MEDS: BACLOFEN 10 MG TAB PO PRN ×2 (03:21→20:39)
[2016-07-28] MEDS: ACETAMINOPHEN 325 MG TAB PO PRN ×2 (03:21→20:39)
[2016-07-28] MEDS: KETOROLAC TROMETHAMINE 30 MG/ML (IVP) VIAL IV PUSH PRN ×2 (03:22→20:40)
[2016-07-28] MEDS: SODIUM CHLORIDE 0.9% FLUSH 10 ML FLUSH IV FLUSH PRN (03:22)
[2016-07-28 05:55] VITALS: BP 93/55; PULSE 66; RESP 20; TEMP 97.5; O2SAT 98
[2016-07-28] MEDS: CLINDAMYCIN 150 MG CAP PO SCH ×3 (07:53→17:56)
[2016-07-28 08:00] VITALS: BP 110/70; PULSE 59; RESP 18; TEMP 96.2; O2SAT 98
[2016-07-28] MEDS: SODIUM CHLORIDE 0.9% FLUSH 10 ML FLUSH IV FLUSH SCH ×2 (09:00→20:40)
[2016-07-28] MEDS: LEVOFLOXACIN 750 MG TAB PO SCH (10:09)
--- NOTE | 2016-07-28 10:18 | HHI.PR ---
Subjective Remarks resting comfortably with no distress. no fever. pain is controlled. d/w the RN and no acute issues over night. Objective Vitals Vital Signs Date Time Temp Pulse Resp B/P Pulse Ox O2 Delivery O2 Flow Rate FiO2 07/28/16 05:55 97.5 66 20 93/55 98 07/28/16 01:16 96.6 72 20 107/73 100 07/27/16 20:00 96.6 63 20 106/70 100 07/27/16 15:40 97.4 66 18 115/64 97 07/27/16 11:35 95.9 79 18 104/59 98 07/27/16 11:07 18 I/O 07/27/16 07/27/16 07/27/16 07/28/16 07/28/16 07/28/16 07:00 15:00 23:00 07:00 15:00 23:00 Intake Total 480 ml Balance 480 ml Intake Oral 480 ml # Voids 1 2 6 # Bowel Movements 1 0 1 Imaging Last Impressions Needle Aspiration CT 07/19/16 0000 Signed Impressions: Service Date/Time: Tuesday, July 19, 2016 18:27 - CONCLUSION: Uncomplicated paravertebral FNA as above. Humberto Rodriguez MD Lumbar Spine MRI 07/19/16 0000 Signed Impressions: Service Date/Time: Tuesday, July 19, 2016 14:15 - CONCLUSION: Marrow edema and diffuse enhancement involving the right side of the inferior aspect of L3 and superior aspect of L4 as well as diffuse enhancement along the epidural space anterior to the thecal sac from the top of L3 through the bottom of L4 and focal enhancement of the posterior aspect of the L3-4 disc space. The findings are suggestive of acute discitis at L3-4 with associated osteomyelitis of L3 and L4 and small epidural abscess. Clinical correlation is recommended. Severe right neural foraminal narrowing and moderate to severe left neural foraminal narrowing is noted at L3-4. Ortega Rutherford MD Objective Remarks GENERAL: This is a well-nourished, well-developed patient, in no apparent distress. CARDIOVASCULAR: Regular rate and irregular rhythm without murmurs, gallops, or rubs. RESPIRATORY: Clear to auscultation. Breath sounds equal bilaterally. No wheezes , rales, or rhonchi. GASTROINTESTINAL: Abdomen soft, non-tender, nondistended. Normal, active bowel sounds MUSCULOSKELETAL: Extremities without clubbing, cyanosis, or edema. NEURO: Alert & Oriented x4 to person, place, time, situation. Moves all ext x4 Procedures paravertebral needle aspiration. Medications and IVs Current Medications Lidocaine/ Epinephrine (Xylocaine-Epi 1%-1:100,000 Inj) 10 ml ONCE ONCE INFIL Last administered on 07/19/16 13:23; Start 07/19/16 at 11:45; Stop 07/19/16 at 11:46; Status DC Ketorolac Tromethamine (Toradol Inj) 30 mg ONCE ONCE IV PUSH Last administered on 07/19/16 12:17; Start 07/19/16 at 11:45; Stop 07/19/16 at 11:46 ; Status DC Gadodiamide 15 ml 15 ml STK-MED ONCE IV Last administered on 07/19/16 15:10; Start 07/19/16 at 15:10; Stop 07/19/16 at 15:11; Status DC Piperacillin Sod/ Tazobactam Sod 100 ml @ 200 mls/hr ONCE STAT IV ; Start at 15:56; Stop 07/19/16 at 16:25; Status Cancel Vancomycin HCl 1000 mg/Sodium Chloride 250 ml @ 250 mls/hr ONCE STAT IV ; Start 07/19/16 at 15:56; Stop 07/19/16 at 16:55; Status Cancel Sodium Chloride (NS 1000 ml Inj) 1,000 ml @ 100 mls/hr Q10H IV Last administered on 07/26/16 10:30; Start 07/19/16 at 16:32 Sodium Chloride (NS Flush) 2 ml UNSCH PRN IV FLUSH FLUSH AFTER USING IV ACCESS Last administered on 07/28/16 03:22; Start 07/19/16 at 16:45 Sodium Chloride (NS Flush) 2 ml BID IV FLUSH Last administered on 07/27/16 23: 52; Start 07/19/16 at 21:00 Ondansetron HCl (Zofran Inj) 4 mg Q6H PRN IVP NAUSEA OR VOMITING; Start at 16:45 Naloxone HCl (Narcan Inj) 0.4 mg UNSCH PRN IV SEE LABEL COMMENTS; Start at 16:45 Midazolam HCl (Versed Inj) 5 mg STK-MED ONCE .ROUTE Last administered on 18:06; Start 07/19/16 at 18:06; Stop 07/19/16 at 18:07; Status DC Fentanyl Citrate (fentaNYL INJ) 250 mcg STK-MED ONCE .ROUTE Last administered on 07/19/16 18:06; Start 07/19/16 at 18:06; Stop 07/19/16 at 18:07; Status DC Lidocaine/ Epinephrine (Xylocaine-Epi 1%-1:100,000 Inj) 20 ml STK-MED ONCE .ROUTE Last administered on 07/19/16 18:08; Start 07/19/16 at 18:08; Stop at 18:09; Status DC Ketorolac Tromethamine (Toradol Inj) 30 mg Q6H PRN IV PUSH pain >5 Last administered on 07/24/16 20:52; Start 07/19/16 at 23:45; Stop 07/24/16 at 23:44 ; Status DC Acetaminophen (Tylenol) 650 mg Q4H PRN PO PAIN 5 OR LESS Last administered on 03:21; Start 07/19/16 at 23:45 Hydromorphone HCl 0.2 mg 0.2 mg ONCE ONCE IV PUSH Last administered on 23:50; Start 07/19/16 at 23:45; Stop 07/19/16 at 23:46; Status DC Vancomycin HCl 1000 mg/Sodium Chloride 250 ml @ 250 mls/hr Q12H IV Last administered on 07/22/16 12:27; Start 07/20/16 at 13:00; Stop 07/22/16 at 23:10 ; Status DC Levofloxacin/ Dextrose 150 ml @ 100 mls/hr Q24H IV Last administered on 14:01; Start 07/20/16 at 15:00; Stop 07/22/16 at 23:11; Status DC Cefepime HCl 2000 mg/Sodium Chloride 100 ml @ 200 mls/hr Q8H IV Last administered on 07/22/16 16:52; Start 07/21/16 at 02:00; Stop 07/22/16 at 23:11 ; Status DC Ceftriaxone Sodium/Sodium Chloride (Rocephin Inj/NS Inj) 100 ml @ 200 mls/hr Q24H IV Last administered on 07/27/16 23:58; Start 07/23/16 at 00:00 Levofloxacin (Levaquin) 750 mg DAILY PO Last administered on 07/27/16 09:44; Start 07/23/16 at 09:00 Clindamycin HCl (Cleocin) 300 mg Q6H PO Last administered on 07/28/16 07:53; Start 07/23/16 at 00:00 Baclofen (Lioresal) 5 mg Q8H PRN PO MUSCLE SPASM Last administered on 03:21; Start 07/25/16 at 09:45 Miscellaneous (Pill Splitter) 1 ea UNSCH PRN OTHER SEE LABEL COMMENTS; Start at 10:00 Ketorolac Tromethamine (Toradol Inj) 15 mg Q8HR PRN IV PUSH PAIN >5 Last administered on 07/28/16 03:22; Start 07/27/16 at 08:45; Stop 07/29/16 at 09:00 A/P Assessment and Plan A/P Acute discitis at L3-4 with associated osteomyelitis of L3 and L4 and small epidural abscess -MRI of the lumbar suggestive of acute discitis at L3-4 with associated osteomyelitis of L3 and L4 and small epidural abscess. Severe right neural foraminal narrowing and moderate to severe left neural foraminal narrowing is noted at L3-4. --Status post CT-guided drainage of the small epidural abscess on 07/19/2016 culture growing pantoea agglomerans which is pansensitive. blood cultures are negative. -evaluated by neurosurgery; no further surgical intervention at this time. -on levaquin, clindamycin and IV Rocephin and anticipate repeat imaging studies this week. -ID following. -continue with pain control; continue baclofen- toradol was added. Left arm abscess-resolved. -Most likely secondary to IV drug use. Status post I&D in emergency department . -routine wound care. IVDU -education given on harmful effects of IVDU. Patient declined HIV testing. elevated LFT's- due to Hep C.- f/u as outpatient. DVT prophylaxis -SCDs. Discharge Planning when cleared by Roman Kapoor MD Jul 28, 2016 10:18
[2016-07-28 10:33] LABS: AUTOMATED NEUTROPHIL # 2.4 TH/MM3 (1.8-7.7); BASOPHIL % 0.5 % (0.0-2.0); EOSINOPHIL # 0.1 TH/MM3 (0-0.4); EOSINOPHIL % 2.9 % (0.0-4.0); HEMATOCRIT 35.1 % (35.0-46.0); HEMO FLAGS DIFF FINAL; LYMPH % 38.5 % (9.0-44.0); LYMPHOCYTE # 1.7 TH/MM3 (1.0-4.8); MEAN CORPUSCULAR HGB CONC 33.8 % (32.0-36.0); MONO % 5.1 % (0.0-8.0); PLATELET COUNT 182 TH/MM3 (150-450); RED BLOOD COUNT 4.23 MIL/MM3 (4.00-5.30); RED CELL DISTRIBUTION WIDTH 15.6 % (11.6-17.2); WHITE BLOOD COUNT 4.5 TH/MM3 (4.0-11.0)
[2016-07-28 10:57] LABS: WESTERGREN SEDIMENTATION RATE 48 mm/hr (0-20)
[2016-07-28 11:33] LABS: ALT (GPT) 46 U/L (10-53); ANION GAP 7 MEQ/L (5-15); AST (GOT) 34 U/L (15-37); BICARBONATE 29.4 MEQ/L (21.0-32.0); BLOOD UREA NITROGEN 9 MG/DL (7-18); CHLORIDE 105 MEQ/L (98-107); GLOMERULAR FILTRATION RATE 108 ML/MIN (>89); POTASSIUM 3.5 MEQ/L (3.5-5.1); SODIUM (NA) 141 MEQ/L (136-145)
[2016-07-28 11:36] LABS: ALKALINE PHOSPHATASE 92 U/L (45-117); TOTAL BILIRUBIN ADULT 0.1 MG/DL (0.2-1.0)
[2016-07-28 12:00] VITALS: BP 95/52; PULSE 74; RESP 20; TEMP 96.5; O2SAT 97
[2016-07-28 14:25] LABS: BETA HCG QUANT LESS THAN 1 MIU/ML (0-5)
[2016-07-28 16:00] VITALS: BP 116/67; PULSE 71; RESP 20; TEMP 97.7; O2SAT 99
[2016-07-28 20:00] VITALS: BP 137/86; PULSE 69; RESP 22; TEMP 97.3; O2SAT 100
[2016-07-29] VITALS: BP 109/54; PULSE 73; RESP 19; TEMP 98.2; O2SAT 98
[2016-07-29] MEDS: CLINDAMYCIN 150 MG CAP PO SCH ×4 (02:35→18:41)
[2016-07-29] MEDS: cefTRIAXone INJ 2,000 MG in SODIUM CHLORIDE 0.9% INJ 100 ML IV SCH (02:35)
[2016-07-29] MEDS: SODIUM CHLORIDE 0.9% FLUSH 10 ML FLUSH IV FLUSH PRN ×2 (02:36→05:35)
[2016-07-29 04:00] VITALS: BP 128/69; PULSE 60; RESP 20; TEMP 97.4; O2SAT 99
[2016-07-29] MEDS: KETOROLAC TROMETHAMINE 30 MG/ML (IVP) VIAL IV PUSH PRN (05:35)
[2016-07-29 08:00] VITALS: BP 120/72; PULSE 59; RESP 20; TEMP 97.4; O2SAT 99
[2016-07-29] MEDS: SODIUM CHLORIDE 0.9% FLUSH 10 ML FLUSH IV FLUSH SCH ×2 (08:00→21:00)
[2016-07-29] MEDS: LEVOFLOXACIN 750 MG TAB PO SCH (08:06)
[2016-07-29] MEDS ORDERED: GADODIAMIDE PF 287 MG/ML 5 ML VIAL (for RAD MRI) IV ONE (09:20)
--- NOTE | 2016-07-29 11:36 | RADRPT ---
EXAM DATE/TIME: 07/29/2016 08:59 [facility] COMPARISON: CT GUIDED ASPIRATION, July 19, 2016, 18:27. MRI LUMBAR SPINE W & W/O CONTRAST, July 19, 2016, 14:1 5. INDICATIONS : Osteomyelitis. Pain in lower back. CONTRAST: 15 cc Omniscan (gadodiamide) IV MEDICAL HISTORY : IVDU. SURGICAL HISTORY : Cholecystectomy. section. ENCOUNTER: Initial ACUITY: 1 week PAIN SCORE: 5/10 LOCATION: Lower back. TECHNIQUE: Multiplanar multisequence MRI of the lumbar spine was performed with and without contrast. FINDINGS: The most caudal appearing lumbar vertebra is numbered as L5. VERTEBRAE: There is abnormal decreased T1 and increased T2 signal with enhancement within the inferior endplate of L3 and superior endplate of L4 particularly on the central to right side. The degree of edema and enhancement is similar to the prior examination. There is mild fluid signal in the right aspect of th e disc space at L3-L4 along with enhancement. Remaining vertebral bodies demonstrate normal signal an d height. There is no anterolisthesis or retrolisthesis. CONUS: Normal level and configuration. POST CONTRAST: There is abnormal enhancement of the L3 and L4 vertebral body at the endplates on the right side and there is abnormal enhancement of the right aspect of the L3-L4 disc. The abnormal enhancement extends lateral to the disc space at this level to involve the adjacent medial aspect of the psoas muscles b ilaterally. This degree of enhancement is similar to the prior study. T12-L1: No disc herniation, canal stenosis, or neural foraminal stenosis. L1-L2: No disc herniation, canal stenosis, or neural foraminal stenosis. L2-L3: No disc herniation, canal stenosis, or neural foraminal stenosis. L3-L4: There is decreased disc height with a diffuse disc bulge. No epidural abscess is visualized. There is mild facet hypertrophy. There is no spinal canal stenosis. There is mild neural foraminal narrowing bilaterally, right greater than left. L4-L5: No disc herniation, canal stenosis, or neural foraminal stenosis. There is facet hypertrophy. L5-S1: No disc herniation, canal stenosis, or neural foraminal stenosis. CONCLUSION: 1. Findings are not significantly changed from the prior study from 10 days ago. There are persistent findings suggestive of discitis-osteomyelitis at L3-L4. No epidural abscess is visualized. 2. The abnormal enhancement and signal extends into the adjacent psoas muscles bilaterally similar to the prior study. 3. No spinal canal stenosis is visualized. There is bilateral neural foraminal narrowing at L3-L4. Viktor Rosas MD on July 29, 2016 at 11:25 Board Certified Radiologist. This report was verified electronically.
[2016-07-29 12:00] VITALS: BP 98/52; PULSE 61; RESP 20; TEMP 97.4; O2SAT 98
--- NOTE | 2016-07-29 12:35 | HHI.PR ---
Subjective Remarks resting comfortably with no distress. pain is controlled. no fever. d/w the RN. Objective Vitals Vital Signs Date Time Temp Pulse Resp B/P Pulse Ox O2 Delivery O2 Flow Rate FiO2 07/29/16 08:00 97.4 59 20 120/72 99 07/29/16 04:00 97.4 60 20 128/69 99 07/29/16 00:00 98.2 73 19 109/54 98 07/28/16 20:00 97.3 69 22 137/86 100 07/28/16 16:00 97.7 71 20 116/67 99 I/O 07/28/16 07/28/16 07/28/16 07/29/16 07/29/16 07/29/16 07:00 15:00 23:00 07:00 15:00 23:00 # Voids 6 3 1 # Bowel Movements 1 1 0 Result Diagram: 07/28/16 1010 07/28/16 1010 Imaging Last Impressions Lumbar Spine MRI 07/29/16 0000 Signed Impressions: Service Date/Time: July 08:59 - CONCLUSION: 1. Findings are not significantly changed from the prior study from 10 days ago. There are persistent findings suggestive of discitis-osteomyelitis at L3-L4. No epidural abscess is visualized. 2. The abnormal enhancement and signal extends into the adjacent psoas muscles bilaterally similar to the prior study. 3. No spinal canal stenosis is visualized. There is bilateral neural foraminal narrowing at L3-L4. Viktor Rosas MD Needle Aspiration CT 07/19/16 0000 Signed Impressions: Service Date/Time: Tuesday, July 19, 2016 18:27 - CONCLUSION: Uncomplicated paravertebral FNA as above. Humberto Rodriguez MD Objective Remarks GENERAL: This is a well-nourished, well-developed patient, in no apparent distress. CARDIOVASCULAR: Regular rate and irregular rhythm without murmurs, gallops, or rubs. RESPIRATORY: Clear to auscultation. Breath sounds equal bilaterally. No wheezes , rales, or rhonchi. GASTROINTESTINAL: Abdomen soft, non-tender, nondistended. Normal, active bowel sounds MUSCULOSKELETAL: Extremities without clubbing, cyanosis, or edema. NEURO: Alert & Oriented x4 to person, place, time, situation. Moves all ext x4 Procedures paravertebral needle aspiration. Medications and IVs Current Medications Lidocaine/ Epinephrine (Xylocaine-Epi 1%-1:100,000 Inj) 10 ml ONCE ONCE INFIL Last administered on 07/19/16 13:23; Start 07/19/16 at 11:45; Stop 07/19/16 at 11:46; Status DC Ketorolac Tromethamine (Toradol Inj) 30 mg ONCE ONCE IV PUSH Last administered on 07/19/16 12:17; Start 07/19/16 at 11:45; Stop 07/19/16 at 11:46 ; Status DC Gadodiamide 15 ml 15 ml STK-MED ONCE IV Last administered on 07/19/16 15:10; Start 07/19/16 at 15:10; Stop 07/19/16 at 15:11; Status DC Piperacillin Sod/ Tazobactam Sod 100 ml @ 200 mls/hr ONCE STAT IV ; Start at 15:56; Stop 07/19/16 at 16:25; Status Cancel Vancomycin HCl 1000 mg/Sodium Chloride 250 ml @ 250 mls/hr ONCE STAT IV ; Start 07/19/16 at 15:56; Stop 07/19/16 at 16:55; Status Cancel Sodium Chloride (NS 1000 ml Inj) 1,000 ml @ 100 mls/hr Q10H IV Last administered on 07/26/16 10:30; Start 07/19/16 at 16:32 Sodium Chloride (NS Flush) 2 ml UNSCH PRN IV FLUSH FLUSH AFTER USING IV ACCESS Last administered on 07/29/16 05:35; Start 07/19/16 at 16:45 Sodium Chloride (NS Flush) 2 ml BID IV FLUSH Last administered on 07/29/16 08: 00; Start 07/19/16 at 21:00 Ondansetron HCl (Zofran Inj) 4 mg Q6H PRN IVP NAUSEA OR VOMITING; Start at 16:45 Naloxone HCl (Narcan Inj) 0.4 mg UNSCH PRN IV SEE LABEL COMMENTS; Start at 16:45 Midazolam HCl (Versed Inj) 5 mg STK-MED ONCE .ROUTE Last administered on 18:06; Start 07/19/16 at 18:06; Stop 07/19/16 at 18:07; Status DC Fentanyl Citrate (fentaNYL INJ) 250 mcg STK-MED ONCE .ROUTE Last administered on 07/19/16 18:06; Start 07/19/16 at 18:06; Stop 07/19/16 at 18:07; Status DC Lidocaine/ Epinephrine (Xylocaine-Epi 1%-1:100,000 Inj) 20 ml STK-MED ONCE .ROUTE Last administered on 07/19/16 18:08; Start 07/19/16 at 18:08; Stop at 18:09; Status DC Ketorolac Tromethamine (Toradol Inj) 30 mg Q6H PRN IV PUSH pain >5 Last administered on 07/24/16 20:52; Start 07/19/16 at 23:45; Stop 07/24/16 at 23:44 ; Status DC Acetaminophen (Tylenol) 650 mg Q4H PRN PO PAIN 5 OR LESS Last administered on 20:39; Start 07/19/16 at 23:45 Hydromorphone HCl 0.2 mg 0.2 mg ONCE ONCE IV PUSH Last administered on 23:50; Start 07/19/16 at 23:45; Stop 07/19/16 at 23:46; Status DC Vancomycin HCl 1000 mg/Sodium Chloride 250 ml @ 250 mls/hr Q12H IV Last administered on 07/22/16 12:27; Start 07/20/16 at 13:00; Stop 07/22/16 at 23:10 ; Status DC Levofloxacin/ Dextrose 150 ml @ 100 mls/hr Q24H IV Last administered on 14:01; Start 07/20/16 at 15:00; Stop 07/22/16 at 23:11; Status DC Cefepime HCl 2000 mg/Sodium Chloride 100 ml @ 200 mls/hr Q8H IV Last administered on 07/22/16 16:52; Start 07/21/16 at 02:00; Stop 07/22/16 at 23:11 ; Status DC Ceftriaxone Sodium/Sodium Chloride (Rocephin Inj/NS Inj) 100 ml @ 200 mls/hr Q24H IV Last administered on 07/29/16 02:35; Start 07/23/16 at 00:00 Levofloxacin (Levaquin) 750 mg DAILY PO Last administered on 07/29/16 08:06; Start 07/23/16 at 09:00 Clindamycin HCl (Cleocin) 300 mg Q6H PO Last administered on 07/29/16 05:34; Start 07/23/16 at 00:00 Baclofen (Lioresal) 5 mg Q8H PRN PO MUSCLE SPASM Last administered on 20:39; Start 07/25/16 at 09:45 Miscellaneous (Pill Splitter) 1 ea UNSCH PRN OTHER SEE LABEL COMMENTS; Start at 10:00 Ketorolac Tromethamine (Toradol Inj) 15 mg Q8HR PRN IV PUSH PAIN >5 Last administered on 07/29/16 05:35; Start 07/27/16 at 08:45; Stop 07/29/16 at 09:00 ; Status DC Gadodiamide (Omniscan Pf Inj) 15 ml STK-MED ONCE IV Last administered on 09:20; Start 07/29/16 at 09:20; Stop 07/29/16 at 09:21; Status DC A/P Assessment and Plan A/P Acute discitis at L3-4 with associated osteomyelitis of L3 and L4 and small epidural abscess -MRI of the lumbar suggestive of acute discitis at L3-4 with associated osteomyelitis of L3 and L4 and small epidural abscess. Severe right neural foraminal narrowing and moderate to severe left neural foraminal narrowing is noted at L3-4. --Status post CT-guided drainage of the small epidural abscess on 07/19/2016 culture growing pantoea agglomerans which is pansensitive. blood cultures are negative. -repeated MRI on 07/28/16 with no significant change. -evaluated by neurosurgery; no further surgical intervention at this time. -on levaquin, clindamycin and IV Rocephin . -awaiting ID follow-up. -continue with pain control. Left arm abscess-resolved. -Most likely secondary to IV drug use. Status post I&D in emergency department . -routine wound care. IVDU -education given on harmful effects of IVDU. Patient declined HIV testing. elevated LFT's- due to Hep C.- f/u as outpatient. DVT prophylaxis -SCDs. Discharge Planning awaiting ID follow-up and recommendations. Roman Singh MD Jul 29, 2016 12:35
--- NOTE | 2016-07-29 15:45 | HHI.PR ---
Addendum to Inpatient Note Additional Information MRI w contrast of L spine : with no change Cont with IV Rocephin x 8 weeks, followed by PO levaquine 750 mg daily x 3-6 months untill ESR normal and her smx resolve Levaquine to be started AFTER completion of IV abx She should be advice of reliable contraception while on Levaquine and if gets immediately notify her health care provider Labs inculdung CBC LFTs and creatinine should be monitored during treatment Achilles tendon rupture signs, diarhhea, abd pain other GI smx and rash, should be monitored while on therapy - OPAT form filled out - from this moment will defer further treatment to hospitalist per protocol - will sign off pleasr call for any further issues Beverley Fiore MD Jul 29, 2016 15:45
--- NOTE | 2016-07-29 15:46 | HHI.FF ---
Infusion Therapy Location of Infusion Therapy: Ambulatory Infusion Therapy Order Patient Information Patient Weight 83.7 kg Diagnosis: Diagnosis Diskitis, osteo Coded Allergies: *MDRO Multi-Drug Resistant Organism (Verified Adverse Reaction, Unknown, ) 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 Administer Medication Ceftriaxone 2 grams IV q 24 hours Start Treatment: Jul 29, 2016 Stop Treatment: Sep 15, 2016 Additional Information Venous access: PICC Line Additional Instructions [x] Peripheral flush and dressing changes per protocol [x] Implanted port and central front line leader: * Implanted port: 10 ml Normal Saline followed by 5 ml Heparin 100 units/ml Heparin flush after each use and monthly to maintain. [] May leave port accessed during therapy. [] May leave peripheral site accessed for duration of therapy. [x] If patient has SOB or respiratory distress, check oxygen saturation. If less than 90% or clinical signs of respiratory distress, administer oxygen at 2 L/min. via nasal cannula and notify physician. [x] Anaphylaxis/Reaction orders: * Stop infusion. * Keep IV line open with saline flush. * Notify physician. * Monitor vital signs every 15 minutes until symptoms resolve. * Check Oxygen saturation; Oxygen at 2 L/min. via nasal cannula if less than 90% or clinical signs of respiratory distress. * Administer diphenhydramine (Benadryl) 25 mg IV STAT, (unless patient has received as pre-med). May repeat once, if necessary. * Solu-Cortef 250 mg IVP over 30-60 seconds, use 100 mg vials for each dissolution. * Epinephrine (1mg/1 ml) 0.3 mg subcutaneously or IVP now with any signs of respiratory distress. * Check with physician for new additional pre-med orders if patient is re- challenged or re-treated. [x] May remove PICC line when treatment complete, after confirming with Physician. [x] If the patient is admitted to the hospital, the ED, or transferred via [facility] , complete transfer form including medication reconciliation order sheet. Laboratory Tests Weekly Labs: CBC w/diff, Creatinine, LFT's (Hepatic function test), SED Rate Beverley Fiore MD Jul 29, 2016 15:46
[2016-07-29 16:00] VITALS: BP 112/72; PULSE 66; RESP 20; TEMP 98.3; O2SAT 98
[2016-07-29 20:27] VITALS: BP 118/70; PULSE 83; RESP 17; TEMP 98.2; O2SAT 96
[2016-07-29] MEDS: BACLOFEN 10 MG TAB PO PRN (21:15)
[2016-07-29] MEDS: ACETAMINOPHEN 325 MG TAB PO PRN (21:16)
[2016-07-30] MEDS: KETOROLAC TROMETHAMINE 30 MG/ML (IVP) VIAL IV PUSH PRN ×2 (00:01→09:27)
[2016-07-30] MEDS: cefTRIAXone INJ 2,000 MG in SODIUM CHLORIDE 0.9% INJ 100 ML IV SCH (00:01)
[2016-07-30] MEDS: CLINDAMYCIN 150 MG CAP PO SCH ×3 (00:01→12:37)
[2016-07-30 00:46] VITALS: BP 107/56; PULSE 84; RESP 16; TEMP 99.3; O2SAT 96
[2016-07-30 06:13] VITALS: BP 106/60; PULSE 72; RESP 16; TEMP 97.3; O2SAT 97
[2016-07-30 08:00] VITALS: BP 92/58; PULSE 62; RESP 18; TEMP 95.7; O2SAT 100
[2016-07-30] MEDS: LEVOFLOXACIN 750 MG TAB PO SCH (09:05)
--- NOTE | 2016-07-30 09:21 | HHI.PR ---
Subjective Remarks resting comfortably with no distress. no fever. pain is controlled. Objective Vitals Vital Signs Date Time Temp Pulse Resp B/P Pulse Ox O2 Delivery O2 Flow Rate FiO2 07/30/16 06:13 97.3 72 16 106/60 97 07/30/16 00:46 99.3 84 16 107/56 96 07/29/16 20:27 98.2 83 17 118/70 96 07/29/16 16:00 98.3 66 20 112/72 98 07/29/16 12:00 97.4 61 20 98/52 98 I/O 07/29/16 07/29/16 07/29/16 07/30/16 07/30/16 07/30/16 07:00 15:00 23:00 07:00 15:00 23:00 Intake Total 480 ml Balance 480 ml Intake Oral 480 ml # Voids 1 6 5 # Bowel Movements 0 0 1 Result Diagram: 07/28/16 1010 07/28/16 1010 Imaging Last Impressions Lumbar Spine MRI 07/29/16 0000 Signed Impressions: Service Date/Time: July 08:59 - CONCLUSION: 1. Findings are not significantly changed from the prior study from 10 days ago. There are persistent findings suggestive of discitis-osteomyelitis at L3-L4. No epidural abscess is visualized. 2. The abnormal enhancement and signal extends into the adjacent psoas muscles bilaterally similar to the prior study. 3. No spinal canal stenosis is visualized. There is bilateral neural foraminal narrowing at L3-L4. Viktor Rosas MD Needle Aspiration CT 07/19/16 0000 Signed Impressions: Service Date/Time: Tuesday, July 19, 2016 18:27 - CONCLUSION: Uncomplicated paravertebral FNA as above. Humberto Rodriguez MD Objective Remarks GENERAL: This is a well-nourished, well-developed patient, in no apparent distress. CARDIOVASCULAR: Regular rate and irregular rhythm without murmurs, gallops, or rubs. RESPIRATORY: Clear to auscultation. Breath sounds equal bilaterally. No wheezes , rales, or rhonchi. GASTROINTESTINAL: Abdomen soft, non-tender, nondistended. Normal, active bowel sounds MUSCULOSKELETAL: Extremities without clubbing, cyanosis, or edema. NEURO: Alert & Oriented x4 to person, place, time, situation. Moves all ext x4 Procedures paravertebral needle aspiration. Medications and IVs Current Medications Lidocaine/ Epinephrine (Xylocaine-Epi 1%-1:100,000 Inj) 10 ml ONCE ONCE INFIL Last administered on 07/19/16 13:23; Start 07/19/16 at 11:45; Stop 07/19/16 at 11:46; Status DC Ketorolac Tromethamine (Toradol Inj) 30 mg ONCE ONCE IV PUSH Last administered on 07/19/16 12:17; Start 07/19/16 at 11:45; Stop 07/19/16 at 11:46 ; Status DC Gadodiamide 15 ml 15 ml STK-MED ONCE IV Last administered on 07/19/16 15:10; Start 07/19/16 at 15:10; Stop 07/19/16 at 15:11; Status DC Piperacillin Sod/ Tazobactam Sod 100 ml @ 200 mls/hr ONCE STAT IV ; Start at 15:56; Stop 07/19/16 at 16:25; Status Cancel Vancomycin HCl 1000 mg/Sodium Chloride 250 ml @ 250 mls/hr ONCE STAT IV ; Start 07/19/16 at 15:56; Stop 07/19/16 at 16:55; Status Cancel Sodium Chloride (NS 1000 ml Inj) 1,000 ml @ 100 mls/hr Q10H IV Last administered on 07/26/16 10:30; Start 07/19/16 at 16:32 Sodium Chloride (NS Flush) 2 ml UNSCH PRN IV FLUSH FLUSH AFTER USING IV ACCESS Last administered on 07/29/16 05:35; Start 07/19/16 at 16:45 Sodium Chloride (NS Flush) 2 ml BID IV FLUSH Last administered on 07/29/16 21: 00; Start 07/19/16 at 21:00 Ondansetron HCl (Zofran Inj) 4 mg Q6H PRN IVP NAUSEA OR VOMITING; Start at 16:45 Naloxone HCl (Narcan Inj) 0.4 mg UNSCH PRN IV SEE LABEL COMMENTS; Start at 16:45 Midazolam HCl (Versed Inj) 5 mg STK-MED ONCE .ROUTE Last administered on 18:06; Start 07/19/16 at 18:06; Stop 07/19/16 at 18:07; Status DC Fentanyl Citrate (fentaNYL INJ) 250 mcg STK-MED ONCE .ROUTE Last administered on 07/19/16 18:06; Start 07/19/16 at 18:06; Stop 07/19/16 at 18:07; Status DC Lidocaine/ Epinephrine (Xylocaine-Epi 1%-1:100,000 Inj) 20 ml STK-MED ONCE .ROUTE Last administered on 07/19/16 18:08; Start 07/19/16 at 18:08; Stop at 18:09; Status DC Ketorolac Tromethamine (Toradol Inj) 30 mg Q6H PRN IV PUSH pain >5 Last administered on 07/24/16 20:52; Start 07/19/16 at 23:45; Stop 07/24/16 at 23:44 ; Status DC Acetaminophen (Tylenol) 650 mg Q4H PRN PO PAIN 5 OR LESS Last administered on 21:16; Start 07/19/16 at 23:45 Hydromorphone HCl 0.2 mg 0.2 mg ONCE ONCE IV PUSH Last administered on 23:50; Start 07/19/16 at 23:45; Stop 07/19/16 at 23:46; Status DC Vancomycin HCl 1000 mg/Sodium Chloride 250 ml @ 250 mls/hr Q12H IV Last administered on 07/22/16 12:27; Start 07/20/16 at 13:00; Stop 07/22/16 at 23:10 ; Status DC Levofloxacin/ Dextrose 150 ml @ 100 mls/hr Q24H IV Last administered on 14:01; Start 07/20/16 at 15:00; Stop 07/22/16 at 23:11; Status DC Cefepime HCl 2000 mg/Sodium Chloride 100 ml @ 200 mls/hr Q8H IV Last administered on 07/22/16 16:52; Start 07/21/16 at 02:00; Stop 07/22/16 at 23:11 ; Status DC Ceftriaxone Sodium/Sodium Chloride (Rocephin Inj/NS Inj) 100 ml @ 200 mls/hr Q24H IV Last administered on 07/30/16 00:01; Start 07/23/16 at 00:00 Levofloxacin (Levaquin) 750 mg DAILY PO Last administered on 07/29/16 08:06; Start 07/23/16 at 09:00 Clindamycin HCl (Cleocin) 300 mg Q6H PO Last administered on 07/30/16 05:55; Start 07/23/16 at 00:00 Baclofen (Lioresal) 5 mg Q8H PRN PO MUSCLE SPASM Last administered on 21:15; Start 07/25/16 at 09:45 Miscellaneous (Pill Splitter) 1 ea UNSCH PRN OTHER SEE LABEL COMMENTS; Start at 10:00 Ketorolac Tromethamine (Toradol Inj) 15 mg Q8HR PRN IV PUSH PAIN >5 Last administered on 07/29/16 05:35; Start 07/27/16 at 08:45; Stop 07/29/16 at 09:00 ; Status DC Gadodiamide (Omniscan Pf Inj) 15 ml STK-MED ONCE IV Last administered on 09:20; Start 07/29/16 at 09:20; Stop 07/29/16 at 09:21; Status DC Ketorolac Tromethamine (Toradol Inj) 15 mg Q6H PRN IV PUSH PAIN >5 Last administered on 07/30/16 00:01; Start 07/29/16 at 23:45 A/P Assessment and Plan A/P Acute discitis at L3-4 with associated osteomyelitis of L3 and L4 and small epidural abscess -MRI of the lumbar suggestive of acute discitis at L3-4 with associated osteomyelitis of L3 and L4 and small epidural abscess. Severe right neural foraminal narrowing and moderate to severe left neural foraminal narrowing is noted at L3-4. --Status post CT-guided drainage of the small epidural abscess on 07/19/2016 culture growing pantoea agglomerans which is pansensitive. blood cultures are negative. -repeated MRI on 07/28/16 with no significant change. -evaluated by neurosurgery; no further surgical intervention at this time. - IV Rocephin x 8 weeks, followed by PO levaquine 750 mg daily x 3-6 months until ESR normal .Levaquine to be started AFTER completion of IV abx per ID. -continue with pain control. Left arm abscess-resolved. -Most likely secondary to IV drug use. Status post I&D in emergency department . -routine wound care. IVDU -education given on harmful effects of IVDU. Patient declined HIV testing. elevated LFT's- due to Hep C.- f/u as outpatient.d/w the patient. DVT prophylaxis -SCDs. Discharge Planning d/w case management. needs IV antibiotic as outpatient- however the patient is IV drug abuser. per case management: mom states patient's 2 y/o son lives with grand parents and there is a restraining order against the patient. she's not eligible for PICC line as she is an IVDA. [facility] Roman Singh MD Jul 30, 2016 09:21
[2016-07-30] MEDS: SODIUM CHLORIDE 0.9% FLUSH 10 ML FLUSH IV FLUSH SCH (09:28)
[2016-07-30 12:00] VITALS: BP 103/51; PULSE 91; RESP 18; TEMP 96.9; O2SAT 99
[2016-07-30 16:11] VITALS: BP 100/61; PULSE 68; RESP 18; TEMP 98; O2SAT 99
--- NOTE | 2016-07-30 17:28 | HHI.DS ---
Discharge Summary Admission Date Jul 19, 2016 at 16:37 Discharge Date: Jul 30, 2016 Admitting Diagnosis epidural abscess, discitis, osteomyelitis, left upper extremity absc (1) Discitis ICD Code: M46.40 Diagnosis: Principal Procedures paravertebral needle aspiration. Brief History - From Admission This is a 21-year-old female with current IV drug user who presented with lower back pain and left arm abscess. Patient stated lower back pain started about 1 month ago and worsened over time. She stated then less than 1 week ago she had left arm cellulitis with abscess formation that was I&D in emergency department. Patient denies any worsening weakness or any incontinence. She stated that she mostly use IV drugs on her right arm but has use her left arm 2. Patient started to using IV drugs the past 2-3 years. When I asked her her drug of choice she stated that she likes to use everything including heroin, cocaine, prescription medication. She denies any fevers or chills. Otherwise she has no other complaints. CBC/BMP: 07/28/16 1010 07/28/16 1010 Significant Findings Laboratory Tests Test 07/28/16 10:10 Erythrocyte Sedimentation Rate 48 mm/hr (0-20) Random Glucose 113 MG/DL (74-106) Total Bilirubin 0.1 MG/DL (0.2-1.0) Albumin 2.9 GM/DL (3.4-5.0) Imaging Last Impressions Lumbar Spine MRI 07/29/16 0000 Signed Impressions: Service Date/Time: July 08:59 - CONCLUSION: 1. Findings are not significantly changed from the prior study from 10 days ago. There are persistent findings suggestive of discitis-osteomyelitis at L3-L4. No epidural abscess is visualized. 2. The abnormal enhancement and signal extends into the adjacent psoas muscles bilaterally similar to the prior study. 3. No spinal canal stenosis is visualized. There is bilateral neural foraminal narrowing at L3-L4. Viktor Rosas MD Needle Aspiration CT 07/19/16 0000 Signed Impressions: Service Date/Time: Tuesday, July 19, 2016 18:27 - CONCLUSION: Uncomplicated paravertebral FNA as above. Humberto Rodriguez MD PE at Discharge GENERAL: This is a well-nourished, well-developed patient, in no apparent distress. CARDIOVASCULAR: Regular rate and irregular rhythm without murmurs, gallops, or rubs. RESPIRATORY: Clear to auscultation. Breath sounds equal bilaterally. No wheezes , rales, or rhonchi. GASTROINTESTINAL: Abdomen soft, non-tender, nondistended. Normal, active bowel sounds MUSCULOSKELETAL: Extremities without clubbing, cyanosis, or edema. NEURO: Alert & Oriented x4 to person, place, time, situation. Moves all ext x4 Hospital Course Acute discitis at L3-4 with associated osteomyelitis of L3 and L4 and small epidural abscess -MRI of the lumbar suggestive of acute discitis at L3-4 with associated osteomyelitis of L3 and L4 and small epidural abscess. Severe right neural foraminal narrowing and moderate to severe left neural foraminal narrowing is noted at L3-4. --Status post CT-guided drainage of the small epidural abscess on 07/19/2016 culture growing pantoea agglomerans which is pansensitive. blood cultures are negative. -repeated MRI on 07/28/16 with no significant change. -evaluated by neurosurgery; no further surgical intervention at this time. - IV Rocephin x 8 weeks, followed by PO levaquine 750 mg daily x 3-6 months until ESR normal .Levaquine to be started AFTER completion of IV abx per ID. -continue with pain control. Left arm abscess-resolved. -Most likely secondary to IV drug use. Status post I&D in emergency department . -routine wound care. IVDU -education given on harmful effects of IVDU. Patient declined HIV testing. elevated LFT's- due to Hep C.- f/u as outpatient.d/w the patient. Pt Condition on Discharge: Fair Discharge Disposition: Discharge Home (patient signed out against medical advice.) Discharge Time: <= 30 minutes Discharge Instructions DIET: Follow Instructions for: As Tolerated, No Restrictions Roman Singh MD Jul 30, 2016 17:28
[2016-08-23] MEDS ORDERED: ROCE1INJ3 IV (14:45)
== END 2016-07-30 17:39 | disposition left against medical advice (07) | DRG 95 ==
LOC: NEPD 11:06 → NEDA 16:37 → N05B 20:59
PROVIDERS: ADMIT Internal Medicine; ATTEND Internal Medicine
PROC: 0H9EXZX Drainage of Left Lower Arm Skin, External Approach, Diagnostic (ICD-10-PCS; principal; 2016-07-19)
PROC: 0H96XZX Drainage of Back Skin, External Approach, Diagnostic (ICD-10-PCS; 2016-07-19)
DX: G06.2 Extradural and subdural abscess, unspecified (principal); L02.414 Cutaneous abscess of left upper limb; M46.26 Osteomyelitis of vertebra, lumbar region; L03.114 Cellulitis of left upper limb; F17.210 Nicotine dependence, cigarettes, uncomplicated; G89.29 Other chronic pain; F19.10 Other psychoactive substance abuse, uncomplicated; M46.46 Discitis, unspecified, lumbar region; F11.10 Opioid abuse, uncomplicated; B19.20 Unspecified viral hepatitis C without hepatic coma; M62.838 Other muscle spasm
CPT/HCPCS: 10061; 62267; 72158; 77012; 80048; 80053; 80074; 84450; 84460; 84702; 85025; 85027; 85610; 85652; 85730; 86317; 86403; 87040; 87070; 87077; 87147; 87186; 87205; 96374; 99152; 99153; A9579; J0692; J0696; J1170; J1885; J1956; J2250; J3010; J3370; J7030; J7050

== ENCOUNTER 2016-08-06 16:06 | Inpatient (IN) | payer OTHER ==
[~2016-08-06] VITALS: Ht 160 cm; Wt 80.3 kg
[2016-08-06 16:08] VITALS: BP 130/90; PULSE 84; RESP 16; TEMP 97.8; O2SAT 98
--- NOTE | 2016-08-06 17:20 | PD ---
HPI Chief Complaint: Pain: Acute or Chronic Time Seen by Provider: 17:17 Travel History International Travel<30 days: No Contact w/Intl Traveler<30days: No Traveled to known affect area: No History of Present Illness HPI 21-year-old female presents to the emergency department for evaluation of low back pain. Patient left AGAINST MEDICAL ADVICE on July 22, 2016 after MRI showed acute discitis at L3 to 4 with associated osteomyelitis at L3 and L4 with a small epidural abscess. Patient reports history of IV drug use. She states she has not injected IV drugs since before being admitted previously. Patient states that she is having trouble ambulating and having to hold onto something to ambulate. She states the pain radiates up from her lumbar spine. She has no documented fevers, but has been having chills. She states that she filled a prescription for Bactrim and Robaxin after leaving AGAINST MEDICAL ADVICE which she has been taking. She also filled a prescription for Lortab which she has been taking for pain. Patient denies any other prescribed medications. She denies any other complaints at this time. [employer] Past Medical History Cancer: No Cardiovascular Problems: No Endocrine: No Genitourinary: No Musculoskeletal: No Neurologic: No Psychiatric: No Reproductive: No Respiratory: No ?: Not LMP: 07/20/16 Past Surgical History Abdominal Surgery: Yes (Gall Bladder removal) Section: Yes Cholecystectomy: Yes Gynecologic Surgery: Yes ( section) Social History Alcohol Use: No Tobacco Use: No Substance Use: Yes Allergies-Medications (Allergen,Severity, Reaction): Coded Allergies: *MDRO Multi-Drug Resistant Organism (Verified Adverse Reaction, Unknown, ) 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 Reported Meds & Prescriptions Reported Meds & Active Scripts Active No Active Prescriptions or Reported Medications Review of Systems Except as stated in HPI: all other systems reviewed are Neg Physical Exam Narrative GENERAL: Well-nourished, well-developed female patient, afebrile. SKIN: Focused skin assessment warm/dry. Old track duran noted in the bilateral arms, no acute track duran noted. HEAD: Normocephalic. EYES: No scleral icterus. No injection or drainage. NECK: Supple, trachea midline. No JVD or lymphadenopathy. CARDIOVASCULAR: Regular rate and rhythm without murmurs, gallops, or rubs. RESPIRATORY: Breath sounds equal bilaterally. No accessory muscle use. Lungs sounds are clear to auscultation GASTROINTESTINAL: Abdomen soft, non-tender, nondistended. MUSCULOSKELETAL: No cyanosis, or edema. BACK: No obvious deformity. No CVA tenderness. Patient has mild tenderness over lower thoracic spine tenderness over midline lumbar spine. Patient moves all extremities without difficulty. Data Data Last Documented VS Vital Signs Date Time Temp Pulse Resp B/P Pulse Ox O2 Delivery O2 Flow Rate FiO2 08/06/16 16:08 97.8 84 16 130/90 98 Orders Iv Access Insert/Monitor (08/06/16 17:14) Complete Blood Count With Diff (08/06/16 17:14) Comprehensive Metabolic Panel (08/06/16 17:14) Act Partial Throm Time (Ptt) (08/06/16 17:14) Prothrombin Time / Inr (Pt) (08/06/16 17:14) Blood Culture (08/06/16 17:14) Mri T Spine W & W/O Contrast (08/06/16 ) Mri L Spine W&W/O Contrast (08/06/16 ) Urinalysis - C+S If Indicated (08/06/16 17:14) Ed Urine Pregnancytest Poc (08/06/16 17:14) Drug Screen, Random Urine (08/06/16 17:20) Urine Culture (08/06/16 17:40) Gadodiamide Pf Inj (Omniscan Pf Inj) (08/06/16 19:05) Vancomycin Inj (Vancomycin Inj) (08/06/16 20:00) Cefepime Inj (Maxipime Inj) (08/06/16 20:00) Ceftriaxone Inj (Rocephin Inj) (08/06/16 20:00) Labs Laboratory Tests Test 08/06/16 08/06/16 17:40 17:45 Urine Color YELLOW Urine Turbidity HAZY Urine pH 6.0 Urine Specific Venus 1.033 Urine Protein 30 mg/dL Urine Glucose (UA) NEG mg/dL Urine Ketones NEG mg/dL Urine Occult Blood NEG Urine Nitrite NEG Urine Bilirubin NEG Urine Urobilinogen LESS THAN 2.0 MG/DL Urine Leukocyte Esterase LARGE Urine WBC 57 /hpf Urine Squamous Epithelial 16 /hpf Cells Urine Mucus MOD /lpf Microscopic Urinalysis Comment CULTURE INDICATED Urine Opiates Screen NEG Urine Barbiturates Screen NEG Urine Amphetamines Screen NEG Urine Benzodiazepines Screen NEG Urine Cocaine Screen NEG Urine Cannabinoids Screen NEG White Blood Count 7.0 TH/MM3 Red Blood Count 4.35 MIL/MM3 Hemoglobin 11.8 GM/DL Hematocrit 36.3 % Mean Corpuscular Volume 83.3 FL Mean Corpuscular Hemoglobin 27.1 PG Mean Corpuscular Hemoglobin 32.5 % Concent Red Cell Distribution Width 15.5 % Platelet Count 217 TH/MM3 Mean Platelet Volume 9.8 FL Neutrophils (%) (Auto) 54.5 % Lymphocytes (%) (Auto) 36.9 % Monocytes (%) (Auto) 6.2 % Eosinophils (%) (Auto) 1.7 % Basophils (%) (Auto) 0.7 % Neutrophils # (Auto) 3.8 TH/MM3 Lymphocytes # (Auto) 2.6 TH/MM3 Monocytes # (Auto) 0.4 TH/MM3 Eosinophils # (Auto) 0.1 TH/MM3 Basophils # (Auto) 0.1 TH/MM3 CBC Comment DIFF FINAL Differential Comment Prothrombin Time 11.4 SEC Prothromb Time International 1.0 RATIO Ratio Activated Partial 28.6 SEC Thromboplast Time Sodium Level 140 MEQ/L Potassium Level 3.7 MEQ/L Chloride Level 106 MEQ/L Carbon Dioxide Level 26.4 MEQ/L Anion Gap 8 MEQ/L Blood Urea Nitrogen 12 MG/DL Creatinine 0.77 MG/DL Estimat Glomerular Filtration 94 ML/MIN Rate Random Glucose 85 MG/DL Calcium Level 9.0 MG/DL Total Bilirubin 0.2 MG/DL Aspartate Amino Transf 40 U/L (AST/SGOT) Alanine Aminotransferase 54 U/L (ALT/SGPT) Alkaline Phosphatase 117 U/L Total Protein 8.0 GM/DL Albumin 3.6 GM/DL [facility] Medical Decision Making Medical Screen Exam Complete: Yes Emergency Medical Condition: Yes Medical Record Reviewed: Yes Interpretation(s) MRI T spine - CONCLUSION: No abscess or other acute thoracic spine abnormality. Mild scoliosis. Incidentally seen benign hemangioma of T6. MRI L- Spine - CONCLUSION: 1. Discitis and osteomyelitis changes at L3/L4 again noted. 2. Mild epidural thickening and enhancement has developed, mainly posterior to the L4 vertebral body. The biforaminal perineural enhancement at L3/L4 is not significantly changed. There is no abscess. Differential Diagnosis Chronic back pain versus discitis versus osteomyelitis versus abscess Narrative Course 21-year-old female presents to the emergency department for evaluation of back pain after she left AGAINST MEDICAL ADVICE on July 22, 2016. She was admitted for osteomyelitis, discitis, epidural abscess. IV access is established. CBC, CMP, PTT, PTT/INR, blood cultures, UA, urine test, urine drug screen ordered and pending. MRI of the T-spine with and without contrast and MRI of the L-spine with and without contrast are ordered and pending. CBC is unremarkable. CMP shows elevated AST 40, ALT 54. Coags are unremarkable. UA shows large leukocyte esterase, 57 WBC. UPT is negative. UDS is negative. MRI T-Spine shows no abscess or other acute thoracic spine abnormality. MRI L-Spine shows discitis and osteomyelitis changes at L3 to L4 again noted, no abscess Patient is restarted on Rocephin. She'll be admitted with a consult for neurosurgery. Patient verbalizes agreement and states that she will not leave AMA this time. Dr. Gore accepted admission. Diagnosis Primary Impression: Discitis Qualified Code: M46.46 - Discitis of lumbar region Additional Impressions: Osteomyelitis Qualified Code: M86.18 - Other acute osteomyelitis, other site Hx of intravenous drug use in remission Urinary tract infection Qualified Code: N30.00 - Acute cystitis without hematuria Admitting Information Admitting Physician Requests: Admit Scripts No Active Prescriptions or Reported Meds Crissy Ken August 06, 2016 17:20
[2016-08-06 18:17] LABS: AUTOMATED NEUTROPHIL # 3.8 TH/MM3 (1.8-7.7); BASOPHIL # 0.1 TH/MM3 (0-0.2); BASOPHIL % 0.7 % (0.0-2.0); EOSINOPHIL # 0.1 TH/MM3 (0-0.4); EOSINOPHIL % 1.7 % (0.0-4.0); HEMATOCRIT 36.3 % (35.0-46.0); HEMO FLAGS DIFF FINAL; LYMPH % 36.9 % (9.0-44.0); LYMPHOCYTE # 2.6 TH/MM3 (1.0-4.8); MEAN CELL VOLUME 83.3 FL (80.0-100.0); MEAN CORPUSCULAR HEMOGLOBIN 27.1 PG (27.0-34.0); MEAN CORPUSCULAR HGB CONC 32.5 % (32.0-36.0); MONO % 6.2 % (0.0-8.0); NEUT % 54.5 % (16.0-70.0); PLATELET COUNT 217 TH/MM3 (150-450); RED BLOOD COUNT 4.35 MIL/MM3 (4.00-5.30); RED CELL DISTRIBUTION WIDTH 15.5 % (11.6-17.2)
[2016-08-06 18:23] LABS: APTT (PATIENT) 28.6 SEC (24.3-30.1); PROTHROMBIN TIME - PATIENT 11.4 SEC (9.8-11.6)
[2016-08-06 18:27] LABS: BLOOD, URINE NEG (NEG); COMMENT (UR) CULTURE INDICATED; CULTURE IF INDICATED CULTURE INDICATED; GLUCOSE,URINE NEG (NEG); KETONE, URINE NEG (NEG); MUCUS URINE MOD /lpf (OCC); NITRITE,URINE NEG (NEG); SQUAMOUS EPITHELIAL CELL URINE 16 /hpf (0-5); URINE COLOR YELLOW (YELLW/STRAW)
[2016-08-06 18:39] LABS: ALT (GPT) 54 U/L (10-53); ANION GAP 8 MEQ/L (5-15); AST (GOT) 40 U/L (15-37); BICARBONATE 26.4 MEQ/L (21.0-32.0); BLOOD UREA NITROGEN 12 MG/DL (7-18); CHLORIDE 106 MEQ/L (98-107); GLOMERULAR FILTRATION RATE 94 ML/MIN (>89); POTASSIUM 3.7 MEQ/L (3.5-5.1); SODIUM (NA) 140 MEQ/L (136-145)
[2016-08-06 18:41] LABS: ALKALINE PHOSPHATASE 117 U/L (45-117); TOTAL BILIRUBIN ADULT 0.2 MG/DL (0.2-1.0)
[2016-08-06 18:51] LABS: AMPHETAMINE, URINE NEG (NEG); BARBITURATES, URINE NEG (NEG); COCAINE, URINE NEG (NEG)
[2016-08-06] MEDS ORDERED: GADODIAMIDE PF 287 MG/ML 20 ML VIAL (for RAD MRI) IV ONE (19:05)
--- NOTE | 2016-08-06 19:25 | RADRPT ---
EXAM DATE/TIME: 08/06/2016 18:27 [facility] COMPARISON: No previous studies available for comparison. INDICATIONS : Abscess. CONTRAST: 17 cc Omniscan (gadodiamide) IV MEDICAL HISTORY : None. SURGICAL HISTORY : Cholecystectomy. section. ENCOUNTER: Initial ACUITY: 1 day PAIN SCORE: 3/10 LOCATION: pelvis TECHNIQUE: Multiplanar multisequence MRI of the thoracic spine was performed. FINDINGS: VERTEBRA: Normal vertebral body height. Small T6 vertebral body hemangioma. Homogeneous marrow signal otherwis e. ALIGNMENT: No subluxations. There is a mild S-shaped thoracolumbar curvature. CORD: Normal position and configuration. POST CONTRAST: No abnormal areas of contrast enhancement seen. T1-T2: Normal. T2-T3: The thecal sac has a normal diameter. No evidence of disc bulge or protrusion. T3-T4: The thecal sac has a normal diameter. No evidence of disc bulge or protrusion. T4-T5: The thecal sac has a normal diameter. No evidence of disc bulge or protrusion. T5-T6: The thecal sac has a normal diameter. No evidence of disc bulge or protrusion. T6-T7: The thecal sac has a normal diameter. No evidence of disc bulge or protrusion. T7-T8: The thecal sac has a normal diameter. No evidence of disc bulge or protrusion. T8-T9: The thecal sac has a normal diameter. No evidence of disc bulge or protrusion. T9-T10: The thecal sac has a normal diameter. No evidence of disc bulge or protrusion. T10-T11: The thecal sac has a normal diameter. No evidence of disc bulge or protrusion. T11-T12: The thecal sac has a normal diameter. No evidence of disc bulge or protrusion. T12-L1: The thecal sac has a normal diameter. No evidence of disc bulge or protrusion. CONCLUSION: No abscess or other acute thoracic spine abnormality. Mild scoliosis. Incidentally seen benign amarjit ioma of T6. Viktor Collier MD on August 06, 2016 at 19:19 Board Certified Radiologist. This report was verified electronically.
--- NOTE | 2016-08-06 19:39 | RADRPT ---
EXAM DATE/TIME: 08/06/2016 18:27 [facility] COMPARISON: No previous studies available for comparison. INDICATIONS : Abscess. CONTRAST: 17 cc Omniscan (gadodiamide) IV MEDICAL HISTORY : None. SURGICAL HISTORY : Cholecystectomy. section. ENCOUNTER: Initial ACUITY: 1 day PAIN SCORE: 3/10 LOCATION: [facility] TECHNIQUE: Multiplanar multisequence MRI of the lumbar spine was performed with and without contrast. FINDINGS: Patchy abnormal enhancement with mild loss of height again seen at the L3/L4 disc. There is marrow ed willy, decreased T1 signal abnormality and enhancement of the L3 and L4 vertebral bodies, modestly wors e. Currently, about two thirds of the lower portion of L3 has abnormal signal and about half of the u pper L4 has abnormal signal. Circumferential soft tissue thickening and enhancement seen around the L 3/L4 disc and there is 4 mm maximal thickness epidural enhancement, mainly posterior to the L4 verteb ral body and this is new. Epidural enhancement in the bilateral L3/L4 foramina not significantly moise ged and with mild foraminal stenosis. I don't see a fluid collection. No significant spinal stenosis. CONCLUSION: 1. Discitis and osteomyelitis changes at L3/L4 again noted. 2. Mild epidural thickening and enhancement has developed, mainly posterior to the L4 vertebral body. The biforaminal perineural enhancement at L3/L4 is not significantly changed. There is no abscess. Viktor Collier MD on August 06, 2016 at 19:32 Board Certified Radiologist. This report was verified electronically.
[2016-08-06] MEDS ORDERED: cefTRIAXone INJ 1,000 MG in SODIUM CHLORIDE 0.9% INJ 100 ML IV ONE (20:00)
[2016-08-06] MEDS ORDERED: VANCOMYCIN INJ 1,000 MG in SODIUM CHLOR 0.9% 250 ML INJ 250 ML IV ONE (20:00)
[2016-08-06] MEDS ORDERED: CEFEPIME INJ 2,000 MG in SODIUM CHLORIDE 0.9% INJ 100 ML IV ONE (20:00)
--- NOTE | 2016-08-06 20:21 | HHI.HP ---
HPI Service [facility] Primary Care Physician No Primary Care Physician Admission Diagnosis discitis and osteomyelitis at L3-L4 Diagnoses: (1) Osteomyelitis Diagnosis: Principal (2) UTI (urinary tract infection) Diagnosis: Principal (3) Elevated LFTs Diagnosis: Principal (4) IVDU (intravenous drug user) Diagnosis: Principal Travel History International Travel<30 Days: No Contact w/Intl Traveler <30 Da: No Traveled to Known Affected Are: No History of Present Illness This is a 21-year-old female with a PMH of IVDU with recent admission 07/19- for LUE Abscess and c/o back pain, found to have Acute Discitis L3-L4 w/ Osteomyelitis and Epidural Abscess, s/p eval by Neurosurgery w/ CT-Guided drainage of epidural abscess 07/19/16, Culture +Pantoea Agglomerans pansensitive , Blood Cultures negative, s/p eval by Dr. Fiore w/ ID w/ plan for Rocephin 2gm IV q24h until 09/15/16 followed by Levaquin 750mg PO x3-6 months. Pt however Left AMA prior to completion of therapy. Returns now w/ complaints of severe back pain. Denies IVDU since last admission. No reported fever or chills. On arrival, BP 130/90, HR 84, O2 sat 98% on RA, Afebrile. Chemistry essentially unremarkable except for elevated LFTs, improved from previous labs. INR 1.0. Urine Drug Screen negative. UA positive for UTI. Thoracic MRI with no abscess or other abnormality. Lumbar MRI with discitis and osteomyelitis at L3-L4 again noted, mild epidural thickening and enhancement posterior to L4 vertebral body, no abscess noted. S/p Blood Cultures and IV Abx in ER. Review of Systems Except as stated in HPI: all other systems reviewed are Neg ROS: 14 point review of systems otherwise negative. Past Family Social History Past Medical History PMH: IVDU with recent admission 07/19-07/30/16 for LUE Abscess, Acute Discitis L3-L4 w/ Osteomyelitis and Epidural Abscess Past Surgical History PAST SURGICAL HISTORY: Cholecystectomy, Allergies: Coded Allergies: *MDRO Multi-Drug Resistant Organism (Verified Adverse Reaction, Unknown, ) 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 Family History PAST FAMILY HISTORY: Reviewed. No h/o DM or CAD Social History PAST SOCIAL HISTORY: Negative for alcohol or tobacco. Positive for IVDU, denies recent ingestion. Physical Exam Vital Signs Vital Signs Date Time Temp Pulse Resp B/P Pulse Ox O2 Delivery O2 Flow Rate FiO2 08/06/16 16:08 97.8 84 16 130/90 98 Physical Exam PE: GENERAL: Young white female in no acute distress. HEENT: PERRLA, EOMI. No scleral icterus or conjunctival pallor. No lid lag or facial droop. CARDIOVASCULAR: Regular rate and rhythm. No obvious murmurs to auscultation. No chest tenderness to palpation. RESPIRATORY: No obvious rhonchi or wheezing. Clear to auscultation. Breath sounds equal bilaterally. GASTROINTESTINAL: Abdomen soft, non-tender, nondistended. BS normal. MUSCULOSKELETAL: Extremities without clubbing, cyanosis, or edema. No obvious deformities. Previous track duran noted. NEUROLOGICAL: Awake, alert and oriented x4. No focal neurologic deficits. Moving both upper and lower extremities spontaneously. Laboratory Laboratory Tests Test 08/06/16 08/06/16 17:40 17:45 Urine Color YELLOW Urine Turbidity HAZY Urine pH 6.0 Urine Specific [place] 1.033 Urine Protein 30 Urine Glucose (UA) NEG Urine Ketones NEG Urine Occult Blood NEG Urine Nitrite NEG Urine Bilirubin NEG Urine Urobilinogen LESS THAN 2.0 Urine Leukocyte Esterase LARGE Urine WBC 57 Urine Squamous Epithelial 16 Cells Urine Mucus MOD Microscopic Urinalysis Comment CULTURE INDICATED Urine Opiates Screen NEG Urine Barbiturates Screen NEG Urine Amphetamines Screen NEG Urine Benzodiazepines Screen NEG Urine Cocaine Screen NEG Urine Cannabinoids Screen NEG White Blood Count 7.0 Red Blood Count 4.35 Hemoglobin 11.8 Hematocrit 36.3 Mean Corpuscular Volume 83.3 Mean Corpuscular Hemoglobin 27.1 Mean Corpuscular Hemoglobin 32.5 Concent Red Cell Distribution Width 15.5 Platelet Count 217 Mean Platelet Volume 9.8 Neutrophils (%) (Auto) 54.5 Lymphocytes (%) (Auto) 36.9 Monocytes (%) (Auto) 6.2 Eosinophils (%) (Auto) 1.7 Basophils (%) (Auto) 0.7 Neutrophils # (Auto) 3.8 Lymphocytes # (Auto) 2.6 Monocytes # (Auto) 0.4 Eosinophils # (Auto) 0.1 Basophils # (Auto) 0.1 CBC Comment DIFF FINAL Differential Comment Prothrombin Time 11.4 Prothromb Time International 1.0 Ratio Activated Partial 28.6 Thromboplast Time Sodium Level 140 Potassium Level 3.7 Chloride Level 106 Carbon Dioxide Level 26.4 Anion Gap 8 Blood Urea Nitrogen 12 Creatinine 0.77 Estimat Glomerular Filtration 94 Rate Random Glucose 85 Calcium Level 9.0 Total Bilirubin 0.2 Aspartate Amino Transf 40 (AST/SGOT) Alanine Aminotransferase 54 (ALT/SGPT) Alkaline Phosphatase 117 Total Protein 8.0 Albumin 3.6 Date/Time Procedure Status Source Growth 08/06/16 17:55 Aerobic Blood Culture Received Blood Peripheral Pending 08/06/16 17:55 Anaerobic Blood Culture Received Blood Peripheral Pending 08/06/16 17:40 Urine Culture Received Urine Clean Catch Pending Result Diagram: 08/06/16 1745 08/06/161744 Assessment and Plan Problem List: (1) Osteomyelitis ICD Code: M86.9 Status: Acute (2) UTI (urinary tract infection) ICD Code: N39.0 Status: Acute (3) Elevated LFTs ICD Code: R94.5 Status: Acute (4) IVDU (intravenous drug user) ICD Code: F19.90 Status: Acute Assessment and Plan A/P: 1. Osteoarthritis: Recent admit 07/19-07/30/16 for Discitis/Osteomyelitis L3-L4 s/p eval by NxSx and CT Guided Drainage of epidural abscess 07/19/16, plan for long-term antibiotics, however pt Left AMA prior to completion. Thoracic MRI w / no significant findings. Lumbar MRI w/ discitis and osteomyelitis at L3-L4 again noted, mild epidural thickening posterior to L4 vertebral body, no abscess noted, images reviewed by me. Will resume planned Rocephin 2mg IV q24hr , previously scheduled to stop 09/15/16. Will consult Dr. Fiore for re-eval. Analgesics/antiemetics as needed. Follow up Blood Cultures. 2. UTI: U/a w/ UTI. Continue IV Abx as above for coverage. 3. Elevated LFTs: Improved in comparison to previous labs. Secondary to H/o Hepatitis C. Will monitor. Caution w/ Tylenol. 4. IVDU: H/o IVDU, denies injection since last admit, no fresh track duran on exam. Urine Drug Screen negative. 5. DVT Prophylaxis: SCD/teds. 6. Social work for DC planning as needed. 7. Case discussed at length with ER physician. Physician Certification 2 Midnight Certification Type: Admission for Inpatient Services Order for Inpatient Services The services are ordered in accordance with Medicare regulations or non- Medicare payer requirements, as applicable. In the case of services not specified as inpatient-only, they are appropriately provided as inpatient services in accordance with the 2-midnight benchmark. Estimated LOS (days): 2 days is the estimated time the patient will need to remain in the hospital, assuming treatment plan goals are met and no additional complications. Post-Hospital Plan: Not yet determined Problem Qualifiers (1) Osteomyelitis: Qualified Code: M86.18 - Other acute osteomyelitis, other site Janice Gore MD August 06, 2016 20:21
[2016-08-06] MEDS ORDERED: SODIUM CHLORIDE 0.9% FLUSH 10 ML FLUSH IV FLUSH PRN (20:30)
[2016-08-06] MEDS ORDERED: ONDANSETRON HCL 4 MG/2 ML VIAL IVP PRN (20:30)
[2016-08-06] MEDS ORDERED: MORPHINE SULFATE 4 MG/ML INJ IV PRN (20:30)
[2016-08-06] MEDS ORDERED: BISACODYL 10 MG SUPP RECTAL PRN (20:30)
[2016-08-06] MEDS: SODIUM CHLOR 0.9% 1000 ML INJ 1,000 ML IV SCH (20:38)
[2016-08-06] MEDS: SODIUM CHLORIDE 0.9% FLUSH 10 ML FLUSH IV FLUSH SCH (20:38)
[2016-08-07 00:19] VITALS: BP 114/56; PULSE 90; RESP 16; TEMP 96.8; O2SAT 98
[2016-08-07 05:34] VITALS: BP 90/52; PULSE 74; RESP 16; TEMP 97.2; O2SAT 99
[2016-08-07 08:00] VITALS: BP 90/48; PULSE 76; RESP 18; TEMP 96.4; O2SAT 97
[2016-08-07 09:00] LABS: BASOPHIL % 0.6 % (0.0-2.0); EOSINOPHIL # 0.1 TH/MM3 (0-0.4); EOSINOPHIL % 2.5 % (0.0-4.0); HEMO FLAGS DIFF FINAL; LYMPH % 43.2 % (9.0-44.0); LYMPHOCYTE # 1.9 TH/MM3 (1.0-4.8); MEAN CELL VOLUME 83.9 FL (80.0-100.0); MEAN CORPUSCULAR HEMOGLOBIN 27.5 PG (27.0-34.0); MEAN CORPUSCULAR HGB CONC 32.7 % (32.0-36.0); MONO % 7.8 % (0.0-8.0); NEUT % 45.9 % (16.0-70.0); PLATELET COUNT 173 TH/MM3 (150-450); RED BLOOD COUNT 4.06 MIL/MM3 (4.00-5.30); RED CELL DISTRIBUTION WIDTH 15.8 % (11.6-17.2); WHITE BLOOD COUNT 4.3 TH/MM3 (4.0-11.0)
[2016-08-07] MEDS: SODIUM CHLORIDE 0.9% FLUSH 10 ML FLUSH IV FLUSH SCH ×2 (09:00→22:06)
[2016-08-07] MEDS: SODIUM CHLOR 0.9% 1000 ML INJ 1,000 ML IV SCH ×3 (09:32→22:07)
[2016-08-07 09:41] LABS: WESTERGREN SEDIMENTATION RATE 46 mm/hr (0-20)
[2016-08-07 09:49] LABS: ALKALINE PHOSPHATASE 100 U/L (45-117); ALT (GPT) 48 U/L (10-53); ANION GAP 6 MEQ/L (5-15); AST (GOT) 31 U/L (15-37); BICARBONATE 29.2 MEQ/L (21.0-32.0); BLOOD UREA NITROGEN 9 MG/DL (7-18); CHLORIDE 106 MEQ/L (98-107); GLOMERULAR FILTRATION RATE 106 ML/MIN (>89); POTASSIUM 4.2 MEQ/L (3.5-5.1); SODIUM (NA) 141 MEQ/L (136-145); TOTAL BILIRUBIN ADULT 0.4 MG/DL (0.2-1.0)
[2016-08-07] MEDS: ACETAMINOPHEN 325 MG TAB PO PRN ×2 (10:45→18:12)
--- NOTE | 2016-08-07 11:43 | HHI.PR ---
Subjective Remarks Patient seen for follow up Osteomyelitis. 08/07/2016 - patient seen this morning. BPs on the low end (MAP 60s). Afebrile. Giselle has no complaints this AM. Has [id number] back pain, well controlled with pain meds. Tolerating PO diet without any N/V. Denies F/C or dizziness. Objective Vitals Vital Signs Date Time Temp Pulse Resp B/P Pulse Ox O2 Delivery O2 Flow Rate FiO2 08/07/16 08:00 96.4 76 18 90/48 97 08/07/16 05:34 97.2 74 16 90/52 99 08/07/16 00:19 96.8 90 16 114/56 98 08/06/16 16:08 97.8 84 16 130/90 98 I/O 08/06/16 08/06/16 08/06/16 08/07/16 08/07/16 08/07/16 07:00 15:00 23:00 07:00 15:00 23:00 Intake Total 240 ml Balance 240 ml Intake Oral 240 ml # Voids 2 Result Diagram: 08/07/1682608/07/16826 Objective Remarks GENERAL: Well-appearing, young white female in no acute distress. HEENT: PERRLA, EOMI. No scleral icterus or conjunctival pallor. No lid lag or facial droop. CARDIOVASCULAR: Regular rate and rhythm. No obvious murmurs to auscultation. No chest tenderness to palpation. RESPIRATORY: No obvious rhonchi or wheezing. Clear to auscultation. Breath sounds equal bilaterally. GASTROINTESTINAL: Abdomen soft, non-tender, nondistended. BS normal. MUSCULOSKELETAL: Extremities without clubbing, cyanosis, or edema. No obvious deformities. Previous track duran noted. No TTP over paraspinal muscles or vertebral processes. No palpable spasm. NEUROLOGICAL: Awake, alert and oriented x4. No focal neurologic deficits. Moving both upper and lower extremities spontaneously. A/P Problem List: (1) Osteomyelitis ICD Code: M86.9 Status: Acute (2) UTI (urinary tract infection) ICD Code: N39.0 Status: Acute (3) Elevated LFTs ICD Code: R94.5 Status: Acute (4) IVDU (intravenous drug user) ICD Code: F19.90 Status: Acute Assessment and Plan 1. Osteomyelitis: -Recent admit 07/19-07/30/16 for Discitis/Osteomyelitis L3-L4 s/p eval by NxSx and CT Guided Drainage of epidural abscess 07/19/16, plan for long-term antibiotics, however pt Left AMA prior to completion. Thoracic MRI w/ no significant findings. Lumbar MRI w/ discitis and osteomyelitis at L3-L4 again noted, mild epidural thickening posterior to L4 vertebral body, no abscess noted. Will resume planned Rocephin 2mg IV q24hr (given IV cefepime + rocephin x1 in the ED 08/06/16), previously scheduled to stop 09/15/16. Will consult Dr. Fiore for re-eval. Analgesics/antiemetics as needed. Follow up Blood Cultures. 2. UTI: U/a suspicious for UTI with LE + 57 WBC. Continue IV Abx as above for coverage. 3. Elevated LFTs: Improved in comparison to previous labs. Secondary to H/o Hepatitis C. Will monitor. Caution w/ Tylenol. 4. IVDU: H/o IVDU, denies injection since last admit, no fresh track duran on exam. Urine Drug Screen negative. 5. DVT Prophylaxis: SCD/teds. 6. Social work for DC planning as needed. Problem Qualifiers (1) Osteomyelitis: Qualified Code: M86.18 - Other acute osteomyelitis, other site Ketan Sabillon MD R3 August 07, 2016 11:43
[2016-08-07 12:00] VITALS: BP 95/53; PULSE 78; RESP 21; TEMP 96.6; O2SAT 99
--- NOTE | 2016-08-07 15:15 | HHI.FPPN ---
Addendum to progress note ADDENDUM Reason for addendum: Additonal documentation Additional information Discussed case with ID. No new findings on MRI scans and repeat cultures are pending. I will DC consult for today and plan to re-consult ID Tuesday when workup is complete. They will be available over the weekend for any acute issues. Ketan Sabillon MD R3 August 07, 2016 15:15
[2016-08-07 16:00] VITALS: BP 110/74; PULSE 66; RESP 21; TEMP 96.9; O2SAT 99
[2016-08-07 20:00] VITALS: BP 100/50; PULSE 72; RESP 20; TEMP 96.7; O2SAT 98
[2016-08-07] MEDS: cefTRIAXone INJ 2,000 MG in SODIUM CHLORIDE 0.9% INJ 100 ML IV SCH (22:06)
[2016-08-08 00:59] VITALS: BP 106/65; PULSE 73; RESP 20; TEMP 96.7; O2SAT 100
[2016-08-08 05:23] VITALS: BP 94/54; PULSE 67; RESP 20; TEMP 96.2; O2SAT 99
[2016-08-08 06:40] LABS: AUTOMATED NEUTROPHIL # 2.8 TH/MM3 (1.8-7.7); BASOPHIL % 0.7 % (0.0-2.0); EOSINOPHIL # 0.2 TH/MM3 (0-0.4); EOSINOPHIL % 3.5 % (0.0-4.0); HEMATOCRIT 35.6 % (35.0-46.0); HEMO FLAGS DIFF FINAL; LYMPH % 39.9 % (9.0-44.0); LYMPHOCYTE # 2.3 TH/MM3 (1.0-4.8); MEAN CELL VOLUME 84.4 FL (80.0-100.0); MEAN CORPUSCULAR HEMOGLOBIN 27.2 PG (27.0-34.0); MEAN CORPUSCULAR HGB CONC 32.3 % (32.0-36.0); NEUT % 47.9 % (16.0-70.0); PLATELET COUNT 200 TH/MM3 (150-450); RED BLOOD COUNT 4.22 MIL/MM3 (4.00-5.30); RED CELL DISTRIBUTION WIDTH 15.8 % (11.6-17.2); WHITE BLOOD COUNT 5.9 TH/MM3 (4.0-11.0)
[2016-08-08 07:16] LABS: ALT (GPT) 40 U/L (10-53); ANION GAP 4 MEQ/L (5-15); AST (GOT) 28 U/L (15-37); BICARBONATE 30.7 MEQ/L (21.0-32.0); BLOOD UREA NITROGEN 10 MG/DL (7-18); CHLORIDE 106 MEQ/L (98-107); GLOMERULAR FILTRATION RATE 105 ML/MIN (>89); POTASSIUM 4.3 MEQ/L (3.5-5.1); SODIUM (NA) 141 MEQ/L (136-145)
[2016-08-08 07:18] LABS: ALKALINE PHOSPHATASE 97 U/L (45-117); TOTAL BILIRUBIN ADULT 0.2 MG/DL (0.2-1.0)
[2016-08-08 08:00] VITALS: BP 90/53; PULSE 70; RESP 18; TEMP 97.8; O2SAT 99
[2016-08-08] MEDS: SODIUM CHLORIDE 0.9% FLUSH 10 ML FLUSH IV FLUSH SCH (09:08)
--- NOTE | 2016-08-08 11:01 | HHI.PR ---
Subjective Remarks No acute events overnight. Afebrile, vital signs stable. Maps in the mid 60s. Patient complains of back pain relief with morphine and oxycodone. States she will be compliant with treatment this time. Objective Vitals Vital Signs Date Time Temp Pulse Resp B/P Pulse Ox O2 Delivery O2 Flow Rate FiO2 08/08/16 08:00 97.8 70 18 90/53 99 08/08/16 05:23 96.2 67 20 94/54 99 08/08/16 00:59 96.7 73 20 106/65 100 08/07/16 20:00 96.7 72 20 100/50 98 08/07/16 16:00 96.9 66 21 110/74 99 08/07/16 12:00 96.6 78 21 95/53 99 I/O 08/07/16 08/07/16 08/07/16 08/08/16 08/08/16 08/08/16 07:00 15:00 23:00 07:00 15:00 23:00 Intake Total 240 ml 2 ml 720 ml 100 ml Balance 240 ml 2 ml 720 ml 100 ml Intake Oral 240 ml 720 ml IV Total 2 ml 100 ml # Voids 2 6 5 2 # Bowel Movements 0 1 0 Result Diagram: 08/08/16 0604 08/08/16 0604 Objective Remarks GENERAL: Well-appearing, young white female in no acute distress. HEENT: PERRLA, EOMI. No scleral icterus or conjunctival pallor. No lid lag or facial droop. CARDIOVASCULAR: Regular rate and rhythm. No obvious murmurs to auscultation. No chest tenderness to palpation. RESPIRATORY: No obvious rhonchi or wheezing. Clear to auscultation. Breath sounds equal bilaterally. GASTROINTESTINAL: Abdomen soft, non-tender, nondistended. BS normal. MUSCULOSKELETAL: Extremities without clubbing, cyanosis, or edema. No obvious deformities. Previous track duran noted. No TTP over paraspinal muscles or vertebral processes. No palpable spasm. NEUROLOGICAL: Awake, alert and oriented x4. No focal neurologic deficits. Moving both upper and lower extremities spontaneously. A/P Problem List: (1) Osteomyelitis ICD Code: M86.9 Status: Acute (2) UTI (urinary tract infection) ICD Code: N39.0 Status: Acute (3) Elevated LFTs ICD Code: R94.5 Status: Acute (4) IVDU (intravenous drug user) ICD Code: F19.90 Status: Acute Assessment and Plan 1. Osteomyelitis: -Recent admit 07/19-07/30/16 for Discitis/Osteomyelitis L3-L4 s/p eval by NxSx and CT Guided Drainage of epidural abscess 07/19/16, plan for long-term antibiotics, however pt Left AMA prior to completion. Thoracic MRI w/ no significant findings. Lumbar MRI w/ discitis and osteomyelitis at L3-L4 again noted, mild epidural thickening posterior to L4 vertebral body, no abscess noted. Will resume planned Rocephin 2mg IV q24hr (given IV cefepime + rocephin x1 in the ED 08/06/16), previously scheduled to stop 09/15/16. Will consult infectious disease for re-eval on Tuesday. Analgesics/antiemetics as needed. Blood cultures no growth 1 day. 2. UTI: U/a suspicious for UTI with LE + 57 WBC. Continue IV Abx as above for coverage. 3. Elevated LFTs: Improved in comparison to previous labs. Secondary to H/o Hepatitis C. Will monitor. Caution w/ Tylenol. 4. IVDU: H/o IVDU, denies injection since last admit, no fresh track duarn on exam. Urine Drug Screen negative. 5. DVT Prophylaxis: SCD/teds. 6. Social work for DC planning as needed. Problem Qualifiers (1) Osteomyelitis: Qualified Code: M86.18 - Other acute osteomyelitis, other site Jaz Cline MD R3 August 08, 2016 11:01
[2016-08-08 12:00] VITALS: BP 96/50; PULSE 69; RESP 18; TEMP 96.9; O2SAT 97
[2016-08-08] MEDS: SODIUM CHLOR 0.9% 1000 ML INJ 1,000 ML IV SCH (12:17)
[2016-08-08 16:00] VITALS: BP 111/69; PULSE 78; RESP 18; TEMP 97.7; O2SAT 97
[2016-08-08 20:00] VITALS: BP 105/68; PULSE 86; RESP 20; TEMP 97.9; O2SAT 98
[2016-08-09] VITALS: BP 94/53; PULSE 84; RESP 20; TEMP 97.5; O2SAT 98
[2016-08-09] MEDS: SODIUM CHLORIDE 0.9% FLUSH 10 ML FLUSH IV FLUSH SCH ×3 (00:06→20:49)
[2016-08-09] MEDS: cefTRIAXone INJ 2,000 MG in SODIUM CHLORIDE 0.9% INJ 100 ML IV SCH ×2 (00:12→20:48)
[2016-08-09 06:33] VITALS: BP 87/53; PULSE 58; RESP 20; TEMP 96.4; O2SAT 95
[2016-08-09 07:25] LABS: AUTOMATED NEUTROPHIL # 3.2 TH/MM3 (1.8-7.7); BASOPHIL % 0.4 % (0.0-2.0); EOSINOPHIL # 0.2 TH/MM3 (0-0.4); EOSINOPHIL % 2.8 % (0.0-4.0); HEMATOCRIT 35.1 % (35.0-46.0); HEMO FLAGS DIFF FINAL; LYMPH % 36.5 % (9.0-44.0); LYMPHOCYTE # 2.3 TH/MM3 (1.0-4.8); MEAN CELL VOLUME 83.6 FL (80.0-100.0); MEAN CORPUSCULAR HEMOGLOBIN 27.6 PG (27.0-34.0); MONO % 8.5 % (0.0-8.0); NEUT % 51.8 % (16.0-70.0); PLATELET COUNT 202 TH/MM3 (150-450); RED CELL DISTRIBUTION WIDTH 15.7 % (11.6-17.2); WHITE BLOOD COUNT 6.2 TH/MM3 (4.0-11.0)
[2016-08-09 07:30] VITALS: BP 95/53; PULSE 74; RESP 19; TEMP 96.6; O2SAT 98
[2016-08-09 07:50] LABS: ALKALINE PHOSPHATASE 87 U/L (45-117); ALT (GPT) 42 U/L (10-53); ANION GAP 7 MEQ/L (5-15); AST (GOT) 26 U/L (15-37); BICARBONATE 29.2 MEQ/L (21.0-32.0); BLOOD UREA NITROGEN 10 MG/DL (7-18); CHLORIDE 103 MEQ/L (98-107); GLOMERULAR FILTRATION RATE 105 ML/MIN (>89); POTASSIUM 3.9 MEQ/L (3.5-5.1); SODIUM (NA) 139 MEQ/L (136-145); TOTAL BILIRUBIN ADULT 0.2 MG/DL (0.2-1.0)
[2016-08-09 11:35] VITALS: BP 98/52; PULSE 72; RESP 19; TEMP 96.9; O2SAT 99
--- NOTE | 2016-08-09 14:00 | PD.ID.CON ---
History of Present Illness Service ID Consult Requested By Dr Tobar Reason for Consult L spine diskitis osteo Primary Care Physician No Primary Care Physician Diagnoses: History of Present Illness 21 yo female with h/o IVDU admitted last month affter she presented for back pain Her MRI showed acute discitis with associated osteomyelitis of L3 and L4 and small epidural abscess, She had CT guided aspiration for clx and it was positive for PANTOEA AGGLOMERANS delgado S Repeat JOSE showed resolution of abscess and ongoing diskitis/osteo She was seen by neurosurgeon and was adviced to have conservative treatment She was supposed to cont with IV Rocephin x 8 weeks, followed by PO levaquine 750 mg daily x 3-6 months untill ESR normal and her smx resolve but she left AMA Pt was readmitted over weekend with worsening pain MRI again showed resolution of abscess and ongoing diskitis/osteo @ L3/4 region Pt denies LE weakness, numbness, incontinence, fever, chills She ambulates wo assistance, though she walks slowly because of pain Review of Systems Except as stated in HPI: all other systems reviewed are Neg Past Family Social History Allergies: Coded Allergies: *MDRO Multi-Drug Resistant Organism (Verified Adverse Reaction, Unknown, ) 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 Past Medical History IV drug user Past Surgical History D&C Cholecystectomy Active Ordered Medications Medications where reviewed in EMR Antibiotics Include: CFTX 2 gm dailu Family History Non-Contributory. Social History No Tobacco. No ETOH. + Illicit Drugs, acive IVDA Physical Exam Vital Signs Vital Signs Date Time Temp Pulse Resp B/P Pulse Ox O2 Delivery O2 Flow Rate FiO2 08/09/16 11:35 96.9 72 19 98/52 99 08/09/16 07:30 96.6 74 19 95/53 98 08/09/16 06:33 96.4 58 20 87/53 95 08/09/16 00:00 97.5 84 20 94/53 98 08/08/16 20:00 97.9 86 20 105/68 98 08/08/16 16:00 97.7 78 18 111/69 97 Physical Exam CONSTITUTIONAL/GENERAL: This is an adequately nourished patient, in no apparent distress. TUBES/LINES/DRAINS: SKIN: No jaundice, rashes, or lesions. Mary Jane new needle tracks Skin temperature appropriate. Not diaphoretic. HEAD: Atraumatic. Normocephalic. EYES: Pupils equal and round and reactive. Extraocular motions intact. No scleral icterus. No injection or drainage. Fundi not examined. ENT: Hearing grossly normal. Nose without bleeding or purulent drainage. Throat without visible erythema, exudates, masses, or lesions. CARDIOVASCULAR: Regular rate and rhythm without murmurs, gallops, or rubs. No JVD. Peripheral pulses symmetric. RESPIRATORY/CHEST: Symmetric, unlabored respirations. Clear to auscultation. Breath sounds equal bilaterally. No wheezes, rales, or rhonchi. GASTROINTESTINAL: Abdomen soft, non-tender, nondistended. No hepato-splenomegaly , or palpable masses. No guarding. Bowel sounds present. GENITOURINARY: Without palpable bladder distension. MUSCULOSKELETAL: Extremities without clubbing, cyanosis, or edema. No joint tenderness or effusion noted. No calf tenderness. No mottling or clubbing. LYMPHATICS: No palpable cervical or supraclavicular adenopathy. NEUROLOGICAL: Awake and alert. Motor and sensory grossly within normal limits. Follows commands. Cognitively sharp. Moves all extremities. PSYCHIATRIC: No obvious anxiety/depression. no apparent hallucinations or other psychotic thought process. Laboratory Laboratory Tests Test 08/09/16 08/09/16 07:00 09:10 White Blood Count 6.2 Red Blood Count 4.20 Hemoglobin 11.6 Hematocrit 35.1 Mean Corpuscular Volume 83.6 Mean Corpuscular Hemoglobin 27.6 Mean Corpuscular Hemoglobin 33.0 Concent Red Cell Distribution Width 15.7 Platelet Count 202 Mean Platelet Volume 8.7 Neutrophils (%) (Auto) 51.8 Lymphocytes (%) (Auto) 36.5 Monocytes (%) (Auto) 8.5 Eosinophils (%) (Auto) 2.8 Basophils (%) (Auto) 0.4 Neutrophils # (Auto) 3.2 Lymphocytes # (Auto) 2.3 Monocytes # (Auto) 0.5 Eosinophils # (Auto) 0.2 Basophils # (Auto) 0.0 CBC Comment DIFF FINAL Differential Comment Sodium Level 139 Potassium Level 3.9 Chloride Level 103 Carbon Dioxide Level 29.2 Anion Gap 7 Blood Urea Nitrogen 10 Creatinine 0.70 Estimat Glomerular Filtration 105 Rate Random Glucose 86 Calcium Level 8.5 Total Bilirubin 0.2 Aspartate Amino Transf 26 (AST/SGOT) Alanine Aminotransferase 42 (ALT/SGPT) Alkaline Phosphatase 87 Total Protein 7.0 Albumin 3.0 Nasal Screen MRSA (PCR) MRSA NOT DETECTED Date/Time Procedure Status Source Growth 08/06/16 17:55 Aerobic Blood Culture - Preliminary Resulted Blood Peripheral NO GROWTH IN 3 DAYS 08/06/16 17:55 Anaerobic Blood Culture - Preliminary Resulted Blood Peripheral NO GROWTH IN 3 DAYS 08/06/16 17:40 Urine Culture - Final Complete Urine Clean Catch 50-100,000 CFU/ML MIXED GRAM POSITIVE... Result Diagram: 08/09/16 0700 08/09/16 0700 Imaging Last Impressions Thoracic Spine MRI 08/06/16 0000 Signed Impressions: Service Date/Time: Saturday, August 06, 2016 18:27 - CONCLUSION: No abscess or other acute thoracic spine abnormality. Mild scoliosis. Incidentally seen benign hemangioma of T6. Viktor Collier MD Lumbar Spine MRI 08/06/16 0000 Signed Impressions: Service Date/Time: Saturday, August 06, 2016 18:27 - CONCLUSION: 1. Discitis and osteomyelitis changes at L3/L4 again noted. 2. Mild epidural thickening and enhancement has developed, mainly posterior to the L4 vertebral body. The biforaminal perineural enhancement at L3/L4 is not significantly changed. There is no abscess. Viktor Collier MD Assessment and Plan Assessment and Plan discitis with associated osteomyelitis of L3 and L4 PANTOEA AGGLOMERANS delgado S IVDU Left AMA, non compliance, treatment interruption 10 days Cont with IV Rocephin x 8 weeks, followed by PO levaquine 750 mg daily x 3-6 months untill ESR normal and her smx resolve Levaquine to be started AFTER completion of IV abx She should be advice of reliable contraception while on Levaquine and if gets immediately notify her health care provider Labs inculdung CBC LFTs and creatinine should be monitored during treatment Achilles tendon rupture signs, diarhhea, abd pain other GI smx and rash, should be monitored while on therapy - OPAT form filled out - from this moment will defer further treatment to hospitalist per protocol - will sign off please call for any further issues Beverley Fiore MD August 09, 2016 13:59
[2016-08-09 15:30] VITALS: BP 98/52; PULSE 72; RESP 19; TEMP 96.9; O2SAT 99
--- NOTE | 2016-08-09 17:31 | HHI.PR ---
Subjective Remarks Follow up osteomyelitis and discitis on L3-L4. Patient seen and examined today. Patient states she is feeling good, tolerating PO intake. States pain is well controlled. Denies any new acute complaints. Denies any fever, chills, chest pain, shortness of breath, nausea or vomiting. Patient does state that she is motivated this time and will be compliant with antibiotic treatment plan. Objective Vitals Vital Signs Date Time Temp Pulse Resp B/P Pulse Ox O2 Delivery O2 Flow Rate FiO2 08/09/16 16:15 17 08/09/16 15:30 96.9 72 19 98/52 99 08/09/16 11:35 96.9 72 19 98/52 99 08/09/16 07:30 96.6 74 19 95/53 98 08/09/16 06:33 96.4 58 20 87/53 95 08/09/16 00:00 97.5 84 20 94/53 98 08/08/16 20:00 97.9 86 20 105/68 98 I/O 08/08/16 08/08/16 08/08/16 08/09/16 08/09/16 08/09/16 07:00 15:00 23:00 07:00 15:00 23:00 Intake Total 100 ml 720 ml 0 ml Balance 100 ml 720 ml 0 ml Intake Oral 720 ml IV Total 100 ml 0 ml # Voids 2 8 1 1 3 # Bowel Movements 0 2 0 0 1 Result Diagram: 08/09/16 0700 08/09/16 0700 Imaging Last Impressions Thoracic Spine MRI 08/06/16 0000 Signed Impressions: Service Date/Time: Saturday, August 06, 2016 18:27 - CONCLUSION: No abscess or other acute thoracic spine abnormality. Mild scoliosis. Incidentally seen benign hemangioma of T6. Viktor Collier MD Lumbar Spine MRI 08/06/16 0000 Signed Impressions: Service Date/Time: Saturday, August 06, 2016 18:27 - CONCLUSION: 1. Discitis and osteomyelitis changes at L3/L4 again noted. 2. Mild epidural thickening and enhancement has developed, mainly posterior to the L4 vertebral body. The biforaminal perineural enhancement at L3/L4 is not significantly changed. There is no abscess. Viktor Collier MD Objective Remarks GENERAL: Well-nourished, well-developed patient in NAD. SKIN: Warm and dry. No rash. HEENT: Normocephalic. Atraumatic. Pupils equal and round. No scleral icterus. No injection or drainage. No nasal bleeding or discharge. Mucous membranes pink and moist. Neck supple. Trachea midline. CARDIOVASCULAR: Regular rate and rhythm. S1, S2 noted. No murmur appreciated. RESPIRATORY: No accessory muscle use. Clear to auscultation. Breath sounds equal bilaterally. GASTROINTESTINAL: Abdomen soft, non-tender, nondistended. Normoactive bowel sounds x4. MUSCULOSKELETAL: No obvious deformities. Extremities without clubbing, cyanosis , or edema. Pain to palpation in L3-L4 area. NEUROLOGICAL: Awake and alert. No obvious cranial nerve deficits. Motor grossly within normal limits. Normal speech. PSYCHIATRIC: Appropriate mood and affect; insight and judgment normal. Urinary Catheter: No Vascular Central Line Catheter: No A/P Assessment and Plan Ms. Montilla is a 21-year-old female with a known medical history of IVDU with recent admission 07/19-07/30/16 for LUE Abscess and c/o back pain, found to have Acute Discitis L3-L4 w/ Osteomyelitis and Epidural Abscess, s/p eval by Neurosurgery w/ CT-Guided drainage of epidural abscess 07/19/16, Culture + Pantoea Agglomerans pansensitive, Blood Cultures negative, s/p eval by Dr. Fiore w/ ID w/ plan for Rocephin 2gm IV q24h until 09/15/16 followed by Levaquin 750mg PO x3-6 months. Supposedly patient left AMA and did not continue with her antibiotic regimen outpatient. Patient presented with worsening pain in back with denial of any recent IVDU. Osteomyelitis and discitis of L3-L4, noncompliant outpatient with antibiotic treatment and recommendations - Status post evaluation by neurosurgery with conservative recommendations and CT Guided Drainage of epidural abscess 07/19/16, plan is for long-term antibiotics. Repeat MRI reviewed by myself, showed resolution of abscess and ongoing discitis and osteomyelitis of L3-L4 region. - Reconsulted ID, Dr. Fiore who has recently seen patient. Appreciate input. - Continue Rocephin 2 g IV Q24h. - Following blood cultures, NGTD. - Afebrile. Continue to monitor. - Control pain: Roxicodone 5 mg Q4h PRN per pain scale. - DC IVF, patient tolerating PO intake. Encourage as tolerated. Urinary tract infection: UA showing large amount of leukocyte esterase and urine WBC 57. Urine culture with mixed gram positive salvador, likely contaminated. Patient asymptomatic. Continue Rocephin 2 g IV Q24h. Elevated LFTs likely secondary to hepatitis C - Has improved since last admission. Monitor. Limit hepatotoxic medications. History of IVDU: Encourage cessation. DVT Prophylaxis: SCDs. Encourage ambulation. Attestation Patient seen and examined with MARINA Nascimento. The exam, history, and the medical decision-making described in the above note were completed with the assistance of the dictating practitioner. I attest that I had a [id number] encounter with the patient on the same day, and personally performed all of the history, exam, or medical decision making. Discussed case with her thoroughly after seeing the patient, reviewed and agreed with the plan. Please see addendum in History, Physical examination. See below for any errata/additional input: Afebrile, no overnight events, no nausea or vomiting. No chest pain. Regular rate and rhythm Clear breath sounds No edema Awaiting for blood culture, so far negative, awaiting for infectious disease input. Continue antibiotics Giselle Tobar August 09, 2016 17:31 Dorene Angela MD August 10, 2016 16:57
--- NOTE | 2016-08-09 18:20 | HHI.FF ---
Infusion Therapy Location of Infusion Therapy: Ambulatory Infusion Therapy Order Patient Information Patient Weight 78 kg Diagnosis: (1) Osteomyelitis Coded Allergies: *MDRO Multi-Drug Resistant Organism (Verified Adverse Reaction, Unknown, ) 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 Administer Medication Ceftriaxone 2 grams IV q 24 hours Start Treatment: August 10, 2016 Stop Treatment: Oct 04, 2016 Additional Information Venous access: PICC Line Additional Instructions [x] Peripheral flush and dressing changes per protocol [x] Implanted port and central cylinder block hole reliner: * Implanted port: 10 ml Normal Saline followed by 5 ml Heparin 100 units/ml Heparin flush after each use and monthly to maintain. [] May leave port accessed during therapy. [] May leave peripheral site accessed for duration of therapy. [x] If patient has SOB or respiratory distress, check oxygen saturation. If less than 90% or clinical signs of respiratory distress, administer oxygen at 2 L/min. via nasal cannula and notify physician. [x] Anaphylaxis/Reaction orders: * Stop infusion. * Keep IV line open with saline flush. * Notify physician. * Monitor vital signs every 15 minutes until symptoms resolve. * Check Oxygen saturation; Oxygen at 2 L/min. via nasal cannula if less than 90% or clinical signs of respiratory distress. * Administer diphenhydramine (Benadryl) 25 mg IV STAT, (unless patient has received as pre-med). May repeat once, if necessary. * Solu-Cortef 250 mg IVP over 30-60 seconds, use 100 mg vials for each dissolution. * Epinephrine (1mg/1 ml) 0.3 mg subcutaneously or IVP now with any signs of respiratory distress. * Check with physician for new additional pre-med orders if patient is re- challenged or re-treated. [x] May remove PICC line when treatment complete, after confirming with Physician. [x] If the patient is admitted to the hospital, the ED, or transferred via [facility] , complete transfer form including medication reconciliation order sheet. Laboratory Tests Weekly Labs: CBC w/diff, Creatinine, LFT's (Hepatic function test), SED Rate Beverley Fiore MD August 09, 2016 18:20
[2016-08-09 20:00] VITALS: BP 113/67; PULSE 98; RESP 20; TEMP 97.9; O2SAT 98
[2016-08-10] VITALS: BP 98/60; PULSE 80; RESP 20; TEMP 97.8; O2SAT 94
[2016-08-10 04:00] VITALS: BP 81/46; PULSE 69; RESP 20; TEMP 96.3; O2SAT 99
[2016-08-10] MEDS ORDERED: SODIUM CHLORID 0.9% 500 ML INJ 500 ML IV ONE (05:15)
[2016-08-10 08:00] VITALS: BP 89/53; PULSE 81; RESP 16; TEMP 97.6; O2SAT 99
[2016-08-10] MEDS: SODIUM CHLORIDE 0.9% FLUSH 10 ML FLUSH IV FLUSH SCH ×2 (09:00→21:57)
[2016-08-10 12:00] VITALS: BP 116/68; PULSE 84; RESP 18; TEMP 97.4; O2SAT 98
--- NOTE | 2016-08-10 16:08 | HHI.PR ---
Subjective Remarks Follow up osteomyelitis and discitis on L3-L4. Patient seen and examined today. Resting comfortably in bed, patient states that she did not sleep very well. Denies any new acute complaints. Denies any recent fever, chills, cough, chest pain or shortness of breath. Pain well controlled. Objective Vitals Vital Signs Date Time Temp Pulse Resp B/P Pulse Ox O2 Delivery O2 Flow Rate FiO2 08/10/16 12:00 97.4 84 18 116/68 98 08/10/16 09:55 17 08/10/16 08:00 97.6 81 16 89/53 99 08/10/16 04:00 96.3 69 20 81/46 99 08/10/16 00:00 97.8 80 20 98/60 94 08/09/16 20:00 97.9 98 20 113/67 98 I/O 08/09/16 08/09/16 08/09/16 08/10/16 08/10/16 08/10/16 07:00 15:00 23:00 07:00 15:00 23:00 Intake Total 240 ml Balance 240 ml Intake Oral 240 ml # Voids 1 3 2 1 3 # Bowel Movements 0 1 1 1 1 Result Diagram: 08/09/16 0700 08/09/16 0700 Imaging Last Impressions Thoracic Spine MRI 08/06/16 0000 Signed Impressions: Service Date/Time: Saturday, August 06, 2016 18:27 - CONCLUSION: No abscess or other acute thoracic spine abnormality. Mild scoliosis. Incidentally seen benign hemangioma of T6. Viktor Collier MD Lumbar Spine MRI 08/06/16 0000 Signed Impressions: Service Date/Time: Saturday, August 06, 2016 18:27 - CONCLUSION: 1. Discitis and osteomyelitis changes at L3/L4 again noted. 2. Mild epidural thickening and enhancement has developed, mainly posterior to the L4 vertebral body. The biforaminal perineural enhancement at L3/L4 is not significantly changed. There is no abscess. Viktor Collier MD Objective Remarks GENERAL: Well-nourished, well-developed patient in NAD. SKIN: Warm and dry. No rash. HEENT: Normocephalic. Atraumatic. Pupils equal and round. No scleral icterus. No injection or drainage. No nasal bleeding or discharge. Mucous membranes pink and moist. Neck supple. Trachea midline. CARDIOVASCULAR: Regular rate and rhythm. S1, S2 noted. No murmur appreciated. RESPIRATORY: No accessory muscle use. Clear to auscultation. Breath sounds equal bilaterally. GASTROINTESTINAL: Abdomen soft, non-tender, nondistended. Normoactive bowel sounds x4. MUSCULOSKELETAL: No obvious deformities. Extremities without clubbing, cyanosis , or edema. Pain to palpation in L3-L4 area. NEUROLOGICAL: Awake and alert. No obvious cranial nerve deficits. Motor grossly within normal limits. Normal speech. PSYCHIATRIC: Appropriate mood and affect; insight and judgment normal. Urinary Catheter: No Vascular Central Line Catheter: No A/P Assessment and Plan Ms. Montilla is a 21-year-old female with a known medical history of IVDU with recent admission 07/19-07/30/16 for LUE Abscess and c/o back pain, found to have Acute Discitis L3-L4 w/ Osteomyelitis and Epidural Abscess, s/p eval by Neurosurgery w/ CT-Guided drainage of epidural abscess 07/19/16, Culture + Pantoea Agglomerans pansensitive, Blood Cultures negative, s/p eval by Dr. Fiore w/ ID w/ plan for Rocephin 2gm IV q24h until 09/15/16 followed by Levaquin 750mg PO x3-6 months. Supposedly patient left AMA and did not continue with her antibiotic regimen outpatient. Patient presented with worsening pain in back with denial of any recent IVDU. Osteomyelitis and discitis of L3-L4, noncompliant outpatient with antibiotic treatment and recommendations - Status post evaluation by neurosurgery with conservative recommendations and CT Guided Drainage of epidural abscess 07/19/16, plan is for long-term antibiotics. Repeat MRI reviewed by myself, showed resolution of abscess and ongoing discitis and osteomyelitis of L3-L4 region. - ID following, appreciate input. - Continue Rocephin 2 g IV Q24h. - Following blood cultures, NGTD. - Afebrile. Continue to monitor. - Control pain: Roxicodone 5 mg Q4h PRN per pain scale. - DC IVF, patient tolerating PO intake. Encourage as tolerated. - Patient did have one bout of hypotension overnight. States her BP is low when she is sleeping or relaxed. Asymptomatic. Given IVF bolus overnight. Resolved. Continue to monitor. Urinary tract infection: UA showing large amount of leukocyte esterase and urine WBC 57. Urine culture with mixed gram positive salvador, likely contaminated. Patient asymptomatic. Continue Rocephin 2 g IV Q24h. Elevated LFTs likely secondary to hepatitis C - Has improved since last admission. Monitor. Limit hepatotoxic medications. History of IVDU: Encourage cessation. DVT Prophylaxis: SCDs. Encourage ambulation. Attestation Patient seen and examined with MARINA Nascimento. The exam, history, and the medical decision-making described in the above note were completed with the assistance of the dictating practitioner. I attest that I had a [id number] encounter with the patient on the same day, and personally performed all of the history, exam, or medical decision making. Discussed case with her thoroughly after seeing the patient, reviewed and agreed with the plan. Please see addendum in History, Physical examination. See below for any errata/additional input: Discussed with Dr. Osullivan, no objection to discharge tomorrow. Giselle Tobar August 10, 2016 16:08 Dorene Angela MD August 10, 2016 17:03
[2016-08-10 20:00] VITALS: BP 108/68; PULSE 97; RESP 18; TEMP 97.8; O2SAT 97
[2016-08-10] MEDS: cefTRIAXone INJ 2,000 MG in SODIUM CHLORIDE 0.9% INJ 100 ML IV SCH (21:57)
[2016-08-11] VITALS: BP 103/56; PULSE 90; RESP 18; TEMP 97.3; O2SAT 98
[2016-08-11 08:45] VITALS: BP 93/51; PULSE 65; RESP 17; TEMP 97.9; O2SAT 99
[2016-08-11] MEDS: SODIUM CHLORIDE 0.9% FLUSH 10 ML FLUSH IV FLUSH SCH (09:49)
[2016-08-11] MEDS ORDERED: OXYC-392 PO (10:29)
[2016-08-11 13:01] VITALS: BP 116/63; PULSE 98; RESP 18; TEMP 97.5; O2SAT 94
--- NOTE | 2016-08-11 13:15 | HHI.PR ---
Addendum to Inpatient Note Additional Information Cont with IV Rocephin x 8 weeks, followed by PO levaquine 750 mg daily x 3-6 months untill ESR normal and her smx resolve Levaquine to be started AFTER completion of IV abx She should be advice of reliable contraception while on Levaquine and if gets immediately notify her health care provider Labs inculdung CBC LFTs and creatinine should be monitored during treatment Achilles tendon rupture signs, diarhhea, abd pain other GI smx and rash, should be monitored while on therapy - OPAT form filled out dw Dr Angela In case of pt's non compliance with IV abx/PICC the only treatment option will be po levaquine Beverley Fiore MD August 11, 2016 13:15
[2016-08-11] MEDS ORDERED: LEVA750T PO (14:01)
--- NOTE | 2016-08-11 16:57 | RADRPT ---
EXAM DATE/TIME: 08/11/2016 16:35 [facility] COMPARISON: No previous studies available for comparison. INDICATIONS : Picc line placement. MEDICAL HISTORY : None. SURGICAL HISTORY : None. ENCOUNTER: Initial ACUITY: 1 day PAIN SCORE: 0/10 LOCATION: chest FINDINGS: A single view of the chest demonstrates the lungs to be symmetrically aerated without evidence of mas s, infiltrate or effusion. A right upper cavity PICC line was inserted. Its tip is looped in the rig ht brachiocephalic/superior vena caval junction. The cardiomediastinal contours are unremarkable. Os seous structures are intact. CONCLUSION: PICC line is looped within the central venous system. No acute cardiopulmonary process. Kiran Peng MD on August 11, 2016 at 16:54 Board Certified Radiologist. This report was verified electronically.
[2016-08-11 17:12] VITALS: BP 107/57; PULSE 88; RESP 18; TEMP 98.7; O2SAT 97
--- NOTE | 2016-08-11 17:28 | HHI.DS ---
Discharge Summary Admission Date August 06, 2016 at 19:57 Discharge Date: August 11, 2016 Admitting Diagnosis discitis and osteomyelitis at L3-L4 (1) Osteomyelitis ICD Code: M86.9 Diagnosis: Principal (2) UTI (urinary tract infection) ICD Code: N39.0 Diagnosis: Secondary (3) Elevated LFTs ICD Code: R94.5 Diagnosis: Secondary (4) IVDU (intravenous drug user) ICD Code: F19.90 Diagnosis: Secondary Procedures None Brief History - From Admission This is a 21-year-old female with a PMH of IVDU with recent admission 07/19- for LUE Abscess and c/o back pain, found to have Acute Discitis L3-L4 w/ Osteomyelitis and Epidural Abscess, s/p eval by Neurosurgery w/ CT-Guided drainage of epidural abscess 07/19/16, Culture +Pantoea Agglomerans pansensitive , Blood Cultures negative, s/p eval by Dr. Fiore w/ ID w/ plan for Rocephin 2gm IV q24h until 09/15/16 followed by Levaquin 750mg PO x3-6 months. Pt however Left AMA prior to completion of therapy. Returns now w/ complaints of severe back pain. Denies IVDU since last admission. No reported fever or chills. On arrival, BP 130/90, HR 84, O2 sat 98% on RA, Afebrile. Chemistry essentially unremarkable except for elevated LFTs, improved from previous labs. INR 1.0. Urine Drug Screen negative. UA positive for UTI. Thoracic MRI with no abscess or other abnormality. Lumbar MRI with discitis and osteomyelitis at L3-L4 again noted, mild epidural thickening and enhancement posterior to L4 vertebral body, no abscess noted. S/p Blood Cultures and IV Abx in ER. CBC/BMP: 08/09/16 0700 08/09/16 0700 Significant Findings Laboratory Tests Test 08/09/16 07:00 Monocytes (%) (Auto) 8.5 % (0.0-8.0) Albumin 3.0 GM/DL (3.4-5.0) PE at Discharge GENERAL: Well-nourished, well-developed patient in NAD. SKIN: Warm and dry. No rash. HEENT: Normocephalic. Atraumatic. Pupils equal and round. No scleral icterus. No injection or drainage. No nasal bleeding or discharge. Mucous membranes pink and moist. Neck supple. Trachea midline. CARDIOVASCULAR: Regular rate and rhythm. S1, S2 noted. No murmur appreciated. RESPIRATORY: No accessory muscle use. Clear to auscultation. Breath sounds equal bilaterally. GASTROINTESTINAL: Abdomen soft, non-tender, nondistended. Normoactive bowel sounds x4. MUSCULOSKELETAL: No obvious deformities. Extremities without clubbing, cyanosis , or edema. Pain to palpation in L3-L4 area. NEUROLOGICAL: Awake and alert. No obvious cranial nerve deficits. Motor grossly within normal limits. Normal speech. PSYCHIATRIC: Appropriate mood and affect; insight and judgment normal. Pt update on day of discharge No fever or chills, pain is manageable, worse at night, has been taking Percocet. Discussed extensively with Dr. Osullivan and Dr. Fiore from infectious disease. May discharge today with PICC line After receiving ceftriaxone per ID, will need Levaquin for 3-6 months. Hospital Course Ms. Montilla is a 21-year-old female with a known medical history of IVDU with recent admission 07/19-07/30/16 for LUE Abscess and c/o back pain, found to have Acute Discitis L3-L4 w/ Osteomyelitis and Epidural Abscess, s/p eval by Neurosurgery w/ CT-Guided drainage of epidural abscess 07/19/16, Culture + Pantoea Agglomerans pansensitive, Blood Cultures negative, s/p eval by Dr. Fiore w/ ID w/ plan for Rocephin 2gm IV q24h until 09/15/16 followed by Levaquin 750mg PO x3-6 months. Supposedly patient left AMA and did not continue with her antibiotic regimen outpatient. Patient presented with worsening pain in back with denial of any recent IVDU. Osteomyelitis and discitis of L3-L4, noncompliant outpatient with antibiotic treatment and recommendations - Status post evaluation by neurosurgery with conservative recommendations and CT Guided Drainage of epidural abscess 07/19/16, plan is for long-term antibiotics. Repeat MRI reviewed by myself, showed resolution of abscess and ongoing discitis and osteomyelitis of L3-L4 region. - ID following, appreciate input. - Continue Rocephin 2 g IV Q24h. - Following blood cultures, NGTD. - Afebrile. Continue to monitor. - Control pain: Roxicodone 5 mg Q4h PRN per pain scale. - DC IVF, patient tolerating PO intake. Encourage as tolerated. - Patient did have one bout of hypotension overnight. States her BP is low when she is sleeping or relaxed. Asymptomatic. Given IVF bolus overnight. Resolved. Continue to monitor. Urinary tract infection: UA showing large amount of leukocyte esterase and urine WBC 57. Urine culture with mixed gram positive salvador, likely contaminated. Patient asymptomatic. Continue Rocephin 2 g IV Q24h. Elevated LFTs likely secondary to hepatitis C - Has improved since last admission. Monitor. Limit hepatotoxic medications. History of IVDU: Encourage cessation. DVT Prophylaxis: SCDs. Encourage ambulation. Attestation Patient seen and examined with MARINA Nascimento. The exam, history, and the medical decision-making described in the above note were completed with the assistance of the dictating practitioner. I attest that I had a [id number] encounter with the patient on the same day, and personally performed all of the history, exam, or medical decision making. Discussed case with her thoroughly after seeing the patient, reviewed and agreed with the plan. Please see addendum in History, Physical examination. See below for any errata/additional input: Discussed with Dr. Osullivan, no objection to discharge tomorrow. Pt Condition on Discharge: Good Discharge Disposition: Disch w/ Home Health Serv Discharge Time: > 30 minutes Discharge Instructions DIET: Follow Instructions for: Heart Healthy Diet Activities you can perform: Regular-No Restrictions New Medications: Levofloxacin (Levaquin) 750 Mg Tab 750 MG PO DAILY Infection #90 Ref 0 TAB Oxycodone (Oxycodone) 5 Mg Tab 5 MG PO q12h PRN severe pain #20 TAB Dorene Angela MD August 11, 2016 17:28
--- NOTE | 2016-08-11 17:52 | RADRPT ---
EXAM DATE/TIME: 08/11/2016 17:32 [facility] COMPARISON: CHEST SINGLE AP, August 11, 2016, 16:35. INDICATIONS : Evaluate for PICC line placement after PICC line readjustment. MEDICAL HISTORY : None. SURGICAL HISTORY : None. ENCOUNTER: Subsequent ACUITY: 1 day PAIN SCORE: 0/10 LOCATION: Chest FINDINGS: PICC line is entering from the right. PICC is in the expected location in the superior vena cava. L ungs are clear. Heart and pulmonary vascularity are normal. CONCLUSION: PICC line in good position. Ananda Hanks MD FACR on August 11, 2016 at 17:48 Board Certified Radiologist. This report was verified electronically.
[2016-08-11] MEDS: cefTRIAXone INJ 2,000 MG in SODIUM CHLORIDE 0.9% INJ 100 ML IV SCH (18:27)
[2016-08-11] MEDS ORDERED: SODIUM CHLORIDE 0.9% FLUSH 10 ML FLUSH IV FLUSH PRN (19:15)
[2016-08-12] MEDS ORDERED: SODIUM CHLORIDE 0.9% FLUSH 10 ML FLUSH IV FLUSH SCH (09:00)
[2016-08-23] MEDS ORDERED: ROCE1INJ3 IV (14:45)
== END 2016-08-11 19:30 | disposition home health service (06) | DRG 540 ==
LOC: NEPC 16:06 → NEDA 19:57 → N05A 22:57
PROVIDERS: ADMIT Hospitalist; ATTEND Hospitalist
DX: M46.26 Osteomyelitis of vertebra, lumbar region (principal); N39.0 Urinary tract infection, site not specified; M46.46 Discitis, unspecified, lumbar region; Z91.19 Patient's noncompliance with other medical treatment and regimen; B19.20 Unspecified viral hepatitis C without hepatic coma; F11.10 Opioid abuse, uncomplicated
CPT/HCPCS: 36569; 71010; 72157; 72158; 76937; 80053; 80307; 81001; 84703; 85025; 85610; 85652; 85730; 87040; 87086; 87641; A9579; J0696; J7030

== ENCOUNTER 2016-08-30 08:07 | Emergency (ER) | payer OTHER ==
[~2016-08-30] VITALS: Ht 160 cm; Wt 81.5 kg
[~2016-08-30 08:07] MED LIST changes: -BACT800T5 PO; -CEPH-460 PO; +LEVA750T PO; +OXYC-392 PO; +ROCE1INJ3 IV
[2016-08-30 08:12] VITALS: BP 128/74; PULSE 74; RESP 20; TEMP 98; O2SAT 100
[2016-08-30 08:19] VITALS: BP 117/72; PULSE 72; RESP 18; TEMP 97.9; O2SAT 98
[2016-08-30] MEDS ORDERED: CEFT2INJ IM (08:29)
[2016-08-30] MEDS ORDERED: TYLE325T PO (08:29)
[2016-08-30 09:42] LABS: AUTOMATED NEUTROPHIL # 2.6 TH/MM3 (1.8-7.7); BASOPHIL % 0.5 % (0.0-2.0); EOSINOPHIL # 0.1 TH/MM3 (0-0.4); EOSINOPHIL % 1.8 % (0.0-4.0); HEMATOCRIT 38.2 % (35.0-46.0); HEMO FLAGS DIFF FINAL; LYMPH % 38.5 % (9.0-44.0); LYMPHOCYTE # 1.9 TH/MM3 (1.0-4.8); MEAN CELL VOLUME 83.4 FL (80.0-100.0); MEAN CORPUSCULAR HEMOGLOBIN 28.8 PG (27.0-34.0); MEAN CORPUSCULAR HGB CONC 34.5 % (32.0-36.0); MONO % 6.6 % (0.0-8.0); NEUT % 52.6 % (16.0-70.0); PLATELET COUNT 183 TH/MM3 (150-450); RED BLOOD COUNT 4.57 MIL/MM3 (4.00-5.30); RED CELL DISTRIBUTION WIDTH 15.4 % (11.6-17.2)
[2016-08-30 09:59] LABS: ANION GAP 7 MEQ/L (5-15); BICARBONATE 27.5 MEQ/L (21.0-32.0); BLOOD UREA NITROGEN 8 MG/DL (7-18); CHLORIDE 105 MEQ/L (98-107); GLOMERULAR FILTRATION RATE 108 ML/MIN (>89); POTASSIUM 4.1 MEQ/L (3.5-5.1); SODIUM (NA) 139 MEQ/L (136-145)
--- NOTE | 2016-08-30 10:11 | PD ---
HPI Chief Complaint: Chest Pain Time Seen by Provider: 08:40 Travel History International Travel<30 days: No Contact w/Intl Traveler<30days: No Traveled to known affect area: No History of Present Illness HPI This is a 21-year-old female who presents to the emergency department with a history of IV drug use currently being treated with IV antibiotics for discitis , reporting right sided chest discomfort that's been present ever since she had a PICC line put in but has been worsening. She says the pain is sharp and stabbing, nonradiating, and hurts more when she takes a deep breath. She denies any associated fevers, chills or cough. She was initially told that her PICC line was coiled but then they flushed it and on repeat x-ray was confirmed to be normal. She says she was concerned about her PICC line but she also has never had chest discomfort like this before and this is unusual for her. PFSH Past Medical History Cancer: No Cardiovascular Problems: No Diminished Hearing: No Endocrine: No Gastrointestinal Disorders: Yes Genitourinary: No Immune Disorder: No Implanted Vascular Access Dvce: Yes Musculoskeletal: No Neurologic: No Psychiatric: No Reproductive: No Respiratory: No Tetanus Vaccination: Unknown ?: Not LMP: 08/28/16 Past Surgical History Abdominal Surgery: Yes (Gall Bladder removal) Section: Yes Cholecystectomy: Yes Gynecologic Surgery: Yes ( section) Other Surgery: Yes Social History Alcohol Use: No Tobacco Use: No Substance Use: Yes (herion) Allergies-Medications (Allergen,Severity, Reaction): Coded Allergies: *MDRO Multi-Drug Resistant Organism (Verified Adverse Reaction, Unknown, ) 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 Reported Meds & Prescriptions Reported Meds & Active Scripts Active Oxycodone (Oxycodone HCl) 5 Mg Tab 5 Mg PO Q12H PRN Reported Ceftriaxone Inj (Ceftriaxone Sodium) 2 Gm Inj 2 Gm IM Q24H Tylenol (Acetaminophen) 325 Mg Tab 650 Mg PO Q6H PRN Review of Systems Except as stated in HPI: all other systems reviewed are Neg Physical Exam Narrative GENERAL:Well appearing, no acute distress SKIN: Focused skin assessment warm and dry. HEAD: Atraumatic. Normocephalic. EYES: Pupils equal and round. No injection or drainage. ENT: Moist mucous membranes NECK: Trachea midline. CARDIOVASCULAR: Regular rate and rhythm. No murmur appreciated. RESPIRATORY: Clear to auscultation. Breath sounds equal bilaterally. GASTROINTESTINAL: Abdomen soft, non-tender, nondistended. MUSCULOSKELETAL: No obvious deformities. NEUROLOGICAL: Awake and alert. No obvious cranial nerve deficits. Moving all extremities. PSYCHIATRIC: Appropriate mood and affect; insight and judgment normal. Data Data Last Documented VS Vital Signs Date Time Temp Pulse Resp B/P Pulse Ox O2 Delivery O2 Flow Rate FiO2 08/30/16 08:19 97.9 72 18 117/72 98 Room Air Orders Electrocardiogram (08/30/16 ) Complete Blood Count With Diff (08/30/16 08:47) Basic Metabolic Panel (Bmp) (08/30/16 08:47) Troponin I (08/30/16 08:47) Ct Pulmonary Angiogram (08/30/16 ) Ed Urine Pregnancytest Poc (08/30/16 08:47) Iohexol 350 Inj (Omnipaque 350 Inj) (08/30/16 10:23) Labs Laboratory Tests Test 08/30/16 09:30 White Blood Count 5.0 TH/MM3 Red Blood Count 4.57 MIL/MM3 Hemoglobin 13.2 GM/DL Hematocrit 38.2 % Mean Corpuscular Volume 83.4 FL Mean Corpuscular Hemoglobin 28.8 PG Mean Corpuscular Hemoglobin 34.5 % Concent Red Cell Distribution Width 15.4 % Platelet Count 183 TH/MM3 Mean Platelet Volume 9.0 FL Neutrophils (%) (Auto) 52.6 % Lymphocytes (%) (Auto) 38.5 % Monocytes (%) (Auto) 6.6 % Eosinophils (%) (Auto) 1.8 % Basophils (%) (Auto) 0.5 % Neutrophils # (Auto) 2.6 TH/MM3 Lymphocytes # (Auto) 1.9 TH/MM3 Monocytes # (Auto) 0.3 TH/MM3 Eosinophils # (Auto) 0.1 TH/MM3 Basophils # (Auto) 0.0 TH/MM3 CBC Comment DIFF FINAL Differential Comment Sodium Level 139 MEQ/L Potassium Level 4.1 MEQ/L Chloride Level 105 MEQ/L Carbon Dioxide Level 27.5 MEQ/L Anion Gap 7 MEQ/L Blood Urea Nitrogen 8 MG/DL Creatinine 0.68 MG/DL Estimat Glomerular Filtration 108 ML/MIN Rate Random Glucose 96 MG/DL Calcium Level 9.2 MG/DL Troponin I LESS THAN 0.02 NG/ML MDM Medical Decision Making Medical Screen Exam Complete: Yes Emergency Medical Condition: Yes Interpretation(s) Afebrile, no tachycardia, normotensive No leukocytosis Electrolytes are reassuring Troponin is normal Last [address] Angiography 08/30/16 0000 Signed Impressions: Service Date/Time: Tuesday, August 30, 2016 10:19 - CONCLUSION: 1. Examination is mildly degraded by respiratory motion artifact. However, no PE is identified. 2. No other acute finding is identified to explain the clinical symptoms. Viktor Rosas MD Differential Diagnosis PICC line misplacement, pulmonary embolism, septic embolus, pneumonia, pleural effusion Narrative Course This is a 21-year-old female who presents the emergency department having chest pain and difficulty breathing. She has a history of IV drug use. She was recently hospitalized for prolonged period of time. She certainly at risk for both pulmonary embolism as well as infection. Labs were obtained which were reassuring. I obtained a CT pulmonary angiogram because I expect her d-dimer will be elevated in the setting of a history of discitis and wanted to rule out an infectious etiology of her symptoms. Everything was reassuring. PICC line appears to be normally placed on CT scan. I think patient can safely be discharged home. I don't think the patient has acute coronary syndrome and she is 21 years old, young and healthy with a normal EKG. Diagnosis Primary Impression: Chest pain Qualified Code: R07.9 - Chest pain, unspecified type Patient Instructions: General Instructions Additional Instructions: If you develop severe chest pain, shortness of breath, sweating, lightheadedness , dizziness or difficulty breathing return to the emergency department immediately. Followup with your primary care physician in 2-3 days if your symptoms are not resolved. Med/Other Pt SpecificInfo: No Change to Meds Disposition: 01 DISCHARGE HOME Condition: Stable Yola Mitchell MD August 30, 2016 10:11
[2016-08-30] MEDS ORDERED: IOHEXOL 350 MG/ML 10 ML VIAL (for RAD DIAG) IV ONE (10:23)
--- NOTE | 2016-08-30 10:34 | RADRPT ---
EXAM DATE/TIME: 08/30/2016 10:19 [facility] COMPARISON: No previous studies available for comparison. INDICATIONS : Chest pain with dyspnea IV CONTRAST: 65 cc Omnipaque 350 (iohexol) IV RADIATION DOSE: 22.90 CTDIvol (mGy) MEDICAL HISTORY : None SURGICAL HISTORY : Cholecystectomy. ENCOUNTER: Initial ACUITY: 2 weeks PAIN SCALE: 4/10 LOCATION: chest TECHNIQUE: Volumetric scanning of the chest was performed using a pulmonary embolism protocol MIP images were re constructed. Using automated exposure control and adjustment of the mA and/or kV according to patien t size, radiation dose was kept as low as reasonably achievable to obtain optimal diagnostic quality images. FINDINGS: There is respiratory motion artifact. PULMONARY ARTERIES: No filling defects are seen in the pulmonary arteries through the segmental level. LUNGS: There is no consolidation or pneumothorax . No pulmonary nodule is visualized. PLEURAE: There is no pleural thickening or pleural effusion. MEDIASTINUM: Heart and great vessels demonstrate no acute finding. No lymphadenopathy is visualized. MUSCULOSKELETAL: Within normal limits for patient age. MISCELLANEOUS: The visualized upper abdominal organs demonstrate no acute abnormality. CONCLUSION: 1. Examination is mildly degraded by respiratory motion artifact. However, no PE is identified. 2. No other acute finding is identified to explain the clinical symptoms. Viktor Rosas MD on August 30, 2016 at 10:30 Board Certified Radiologist. This report was verified electronically.
[2016-08-30 11:05] VITALS: BP 117/66
--- NOTE | 2016-08-30 11:24 | EKG ---
Date Performed: 08/30/2016 Time Performed: 08:26:07 PTAGE: 21 years EKG: Sinus rhythm NORMAL ECG INTERPRETATION BASED ON A DEFAULT AGE OF 39 YEARS NO PREVIOUS TRACING DOCTOR: Gerald Alonzo Interpretating Date/Time 08/30/2016 11:24:17
== END 2016-08-30 11:10 | disposition home or self-care (01) ==
LOC: NEPE 08:07
DX: R07.89 Other chest pain (principal); R06.00 Dyspnea, unspecified; F11.90 Opioid use, unspecified, uncomplicated
CPT/HCPCS: 71275; 80048; 84484; 84703; 85025; 93005; 99285; Q9967

== ENCOUNTER 2016-12-31 16:24 | Emergency (ER) | payer SELFPAY ==
[~2016-12-31] VITALS: Ht 160 cm; Wt 86.0 kg
[~2016-12-31 16:24] MED LIST changes: -LEVA750T PO; -ROCE1INJ3 IV; +TYLE325T PO
[2016-12-31] MEDS ORDERED: GADODIAMIDE PF 287 MG/ML 5 ML VIAL (for RAD MRI) IVCONTRAST ONE (16:25)
[2016-12-31 16:28] VITALS: BP 123/76; PULSE 72; RESP 12; TEMP 98.5; O2SAT 99
--- NOTE | 2016-12-31 18:07 | PD ---
HPI Chief Complaint: Medical Clearance Time Seen by Provider: 18:07 Travel History International Travel<30 days: No Contact w/Intl Traveler<30days: No Traveled to known affect area: No History of Present Illness HPI 21-year-old female presents to the emergency Department with complaint of blurry vision, sore throat, nausea, vomiting, body aches, headache, cold sweats 2 days. Patient has history of IV drug use, sepsis, and abscess of her spine which she was hospitalized for in August. Denies IV drug use since she's been discharged. Reports smoking marijuana. For continued mid to lower back pain since she's been discharged. Reports incontinence of urine and stool about 3 weeks ago, but denies since. Denies difficulty ambulating. Denies paresthesias , loss of sensation, decreased range of motion, decreased into bilateral lower proximal is. Denies saddle anesthesias. Denies chest pain, abdominal pain, shortness of breath, dysuria, diarrhea. Reports subjective fever yesterday. Reports history of hepatitis C. Took ibuprofen earlier today for symptom management. Has not taken any other medications or tried any treatments to alleviate her symptoms. Symptoms are moderate in severity. Has no other medical complaints. No other modifying factors or associated signs and symptoms. PFSH Past Medical History Cancer: No Cardiovascular Problems: No Diminished Hearing: No Endocrine: No Gastrointestinal Disorders: Yes Genitourinary: No Immune Disorder: No Implanted Vascular Access Dvce: Yes (PICC LINE FOR OSTEOMELYITIES ) Musculoskeletal: No Neurologic: No Psychiatric: No Reproductive: No Respiratory: No Immunizations Current: Yes Tetanus Vaccination: < 5 Years ?: Not LMP: 12/30/16 : 4 Para: 2 Miscarriage: 2 Dilation and Curettage (D&C): Yes (PARTAIL ) Past Surgical History Abdominal Surgery: Yes (Gall Bladder removal) Section: Yes Cholecystectomy: Yes Gynecologic Surgery: Yes ( section) Other Surgery: Yes Social History Alcohol Use: No Tobacco Use: No Substance Use: Yes (herion) Allergies-Medications (Allergen,Severity, Reaction): Coded Allergies: *MDRO Multi-Drug Resistant Organism (Verified Adverse Reaction, Unknown, ) 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 Reported Meds & Prescriptions Reported Meds & Active Scripts Active No Active Prescriptions or Reported Medications Review of Systems Except as stated in HPI: all other systems reviewed are Neg Physical Exam Narrative GENERAL: Well-nourished, well-developed female patient, in no acute distress; afebrile, nontoxic-appearing SKIN: Warm and dry. HEAD: Atraumatic. Normocephalic. EYES: Pupils equal and round. No scleral icterus. No injection or drainage. ENT: Mucosa pink and moist. No erythema or exudates. No uvular edema. No uvular , palatal, or tonsillar deviation. Airway patent. EARS: Bilateral pinnae and external canals appear within normal limits. Bilateral tympanic membranes without erythema, dullness or perforation. NECK: Trachea midline. CARDIOVASCULAR: Regular rate and rhythm. No murmur appreciated. RESPIRATORY: No accessory muscle use. Breath sounds clear and equal bilaterally. No retractions or tachypnea. GASTROINTESTINAL: Abdomen soft, non-tender, nondistended. Positive bowel sounds. No hepato-splenomegaly, or palpable masses. No guarding. MUSCULOSKELETAL: Bilateral lower extremities supple and non-tense with 2+ pedal pulses and sensory intact; with full range of motion and 5/5 strength. 2 + DTRs bilaterally. Active dorsiflexion and extension of bilateral feet. Bilateral straight leg raise is positive for low back pain. Ambulatory in room with normal gait. Sitting up in bed at 90. No obvious deformities. No clubbing. No cyanosis. No edema. BACK: No CVA tenderness. Midline point tenderness on palpation of the lumbar and thoracic spine. No obvious deformities. NEUROLOGICAL: Awake and alert. Oriented 3. No obvious cranial nerve deficits. Motor grossly within normal limits. Normal speech. Moves all extremities. 5/5 strength to all extremities. Sensory intact. PSYCHIATRIC: Appropriate mood and affect; insight and judgment normal. Data Data Last Documented VS Vital Signs Date Time Temp Pulse Resp B/P (MAP) Pulse Ox O2 Delivery O2 Flow Rate FiO2 12/31/16 16:28 98.5 72 12 123/76 (92) 99 Orders Orders Mri C Spine W&W/O Contrast (12/31/16 ) Mri L Spine W&W/O Contrast (12/31/16 ) Mri T Spine W & W/O Contrast (12/31/16 ) Complete Blood Count With Diff (12/31/16 18:11) Comprehensive Metabolic Panel (12/31/16 18:11) Lipase (12/31/16 18:11) Urinalysis - C+S If Indicated (12/31/16 18:11) Iv Access Insert/Monitor (12/31/16 18:11) Sodium Chlor 0.9% 1000 Ml Inj (Ns 1000 M (12/31/16 18:11) Sodium Chloride 0.9% Flush (Ns Flush) (12/31/16 18:15) Ed Urine Pregnancytest Poc (12/31/16 18:11) Influenzae A/B Antigen (12/31/16 18:11) Group A Rapid Strep Screen (12/31/16 18:11) Drug Screen, Random Urine (12/31/16 18:18) Strep Culture (Group A) (12/31/16 18:36) Labs Laboratory Tests Test 12/31/16 18:36 White Blood Count 5.4 TH/MM3 Red Blood Count 4.55 MIL/MM3 Hemoglobin 12.4 GM/DL Hematocrit 38.2 % Mean Corpuscular Volume 84.0 FL Mean Corpuscular Hemoglobin 27.2 PG Mean Corpuscular Hemoglobin Concent 32.3 % Red Cell Distribution Width 17.7 % Platelet Count 176 TH/MM3 Mean Platelet Volume 9.3 FL Neutrophils (%) (Auto) 53.6 % Lymphocytes (%) (Auto) 36.2 % Monocytes (%) (Auto) 8.1 % Eosinophils (%) (Auto) 1.5 % Basophils (%) (Auto) 0.6 % Neutrophils # (Auto) 2.9 TH/MM3 Lymphocytes # (Auto) 2.0 TH/MM3 Monocytes # (Auto) 0.4 TH/MM3 Eosinophils # (Auto) 0.1 TH/MM3 Basophils # (Auto) 0.0 TH/MM3 CBC Comment AUTO DIFF Differential Comment AUTO DIFF CONFIRMED Urine Color YELLOW Urine Turbidity CLEAR Urine pH 7.0 Urine Specific [place] 1.026 Urine Protein TRACE mg/dL Urine Glucose (UA) NEG mg/dL Urine Ketones NEG mg/dL Urine Occult Blood SMALL Urine Nitrite NEG Urine Bilirubin NEG Urine Urobilinogen 2.0 MG/DL Urine Leukocyte Esterase NEG Urine RBC 51 /hpf Urine WBC 1 /hpf Urine Squamous Epithelial Cells 2 /hpf Urine Mucus MOD /lpf Microscopic Urinalysis Comment CULT NOT INDICATED Blood Urea Nitrogen 6 MG/DL Creatinine 0.70 MG/DL Random Glucose 85 MG/DL Total Protein 7.7 GM/DL Albumin 3.9 GM/DL Calcium Level 8.7 MG/DL Alkaline Phosphatase 86 U/L Aspartate Amino Transf (AST/SGOT) 64 U/L Alanine Aminotransferase (ALT/SGPT) 103 U/L Total Bilirubin 0.4 MG/DL Sodium Level 142 MEQ/L Potassium Level 3.4 MEQ/L Chloride Level 108 MEQ/L Carbon Dioxide Level 27.9 MEQ/L Anion Gap 6 MEQ/L Estimat Glomerular Filtration Rate 105 ML/MIN Lipase 147 U/L Urine Opiates Screen NEG Urine Barbiturates Screen NEG Urine Amphetamines Screen NEG Urine Benzodiazepines Screen NEG Urine Cocaine Screen NEG Urine Cannabinoids Screen POS MDM Medical Decision Making Medical Screen Exam Complete: Yes Emergency Medical Condition: Yes Medical Record Reviewed: Yes Differential Diagnosis Influenza, pneumonia, strep pharyngitis, epidural abscess, viral illness, gastroenteritis Narrative Course 21-year-old female with history of IV drug use, epidural abscess, and sepsis in August presents with multiple complaints. History of hepatitis C. Denies current IV drug use. Patient is afebrile nontoxic appearing. I discussed the patient with Dr. Ortez, my attending physician, and he recommended MRI of the spine. IV site obtained. CBC, CMP, lipase, drug screen, urinalysis, influenza, chest x- ray, rapid strep ordered. 2006: CBC unremarkable. Potassium 3.4. AST 64. ALT 103. Positive for cannabinoids. Urinalysis without signs of infection. Rapid strep and influenza negative. 2043: MRI spine pending. Report given to Dr. Ortez at this time. See his note for final disposition. Scripts No Active Prescriptions or Reported Meds Yesica Vergara Dec 31, 2016 18:07
[2016-12-31] MEDS ORDERED: SODIUM CHLOR 0.9% 1000 ML INJ 1,000 ML IV SCH (18:11)
[2016-12-31] MEDS ORDERED: SODIUM CHLORIDE 0.9% FLUSH 10 ML FLUSH IV FLUSH PRN (18:15)
[2016-12-31 18:59] LABS: AUTOMATED NEUTROPHIL # 2.9 TH/MM3 (1.8-7.7); BASOPHIL % 0.6 % (0.0-2.0); EOSINOPHIL # 0.1 TH/MM3 (0-0.4); EOSINOPHIL % 1.5 % (0.0-4.0); HEMATOCRIT 38.2 % (35.0-46.0); LYMPH % 36.2 % (9.0-44.0); MEAN CORPUSCULAR HEMOGLOBIN 27.2 PG (27.0-34.0); MEAN CORPUSCULAR HGB CONC 32.3 % (32.0-36.0); MONO % 8.1 % (0.0-8.0); NEUT % 53.6 % (16.0-70.0); PLATELET COUNT 176 TH/MM3 (150-450); RED BLOOD COUNT 4.55 MIL/MM3 (4.00-5.30); RED CELL DISTRIBUTION WIDTH 17.7 % (11.6-17.2); WHITE BLOOD COUNT 5.4 TH/MM3 (4.0-11.0)
[2016-12-31 19:01] LABS: HEMO FLAGS AUTO DIFF
[2016-12-31 19:10] LABS: BLOOD, URINE SMALL (NEG); COMMENT (UR) CULT NOT INDICATED; CULTURE IF INDICATED CULT NOT INDICATED; GLUCOSE,URINE NEG (NEG); KETONE, URINE NEG (NEG); MUCUS URINE MOD /lpf (OCC); NITRITE,URINE NEG (NEG); SQUAMOUS EPITHELIAL CELL URINE 2 /hpf (0-5); URINE COLOR YELLOW (YELLW/STRAW)
[2016-12-31 19:29] LABS: ALT (GPT) 103 U/L (10-53); ANION GAP 6 MEQ/L (5-15); AST (GOT) 64 U/L (15-37); BICARBONATE 27.9 MEQ/L (21.0-32.0); BLOOD UREA NITROGEN 6 MG/DL (7-18); CHLORIDE 108 MEQ/L (98-107); GLOMERULAR FILTRATION RATE 105 ML/MIN (>89); POTASSIUM 3.4 MEQ/L (3.5-5.1); SODIUM (NA) 142 MEQ/L (136-145)
[2016-12-31 19:32] LABS: ALKALINE PHOSPHATASE 86 U/L (45-117); TOTAL BILIRUBIN ADULT 0.4 MG/DL (0.2-1.0)
[2016-12-31 19:44] LABS: SCAN/DIFF AUTO DIFF CONFIRMED
--- NOTE | 2016-12-31 20:53 | PD ---
Data Data Last Documented VS Vital Signs Date Time Temp Pulse Resp B/P (MAP) Pulse Ox O2 Delivery O2 Flow Rate FiO2 12/31/16 23:10 65 16 125/78 (94) 100 12/31/16 16:28 98.5 Orders Orders Mri C Spine W&W/O Contrast (12/31/16 ) Mri L Spine W&W/O Contrast (12/31/16 ) Mri T Spine W & W/O Contrast (12/31/16 ) Complete Blood Count With Diff (12/31/16 18:11) Comprehensive Metabolic Panel (12/31/16 18:11) Lipase (12/31/16 18:11) Urinalysis - C+S If Indicated (12/31/16 18:11) Iv Access Insert/Monitor (12/31/16 18:11) Sodium Chlor 0.9% 1000 Ml Inj (Ns 1000 M (12/31/16 18:11) Sodium Chloride 0.9% Flush (Ns Flush) (12/31/16 18:15) Ed Urine Pregnancytest Poc (12/31/16 18:11) Influenzae A/B Antigen (12/31/16 18:11) Group A Rapid Strep Screen (12/31/16 18:11) Drug Screen, Random Urine (12/31/16 18:18) Strep Culture (Group A) (12/31/16 18:36) Gadodiamide Pf Inj (Omniscan Pf Inj) (12/31/16 16:25) Labs Laboratory Tests Test 12/31/16 18:36 White Blood Count 5.4 TH/MM3 Red Blood Count 4.55 MIL/MM3 Hemoglobin 12.4 GM/DL Hematocrit 38.2 % Mean Corpuscular Volume 84.0 FL Mean Corpuscular Hemoglobin 27.2 PG Mean Corpuscular Hemoglobin Concent 32.3 % Red Cell Distribution Width 17.7 % Platelet Count 176 TH/MM3 Mean Platelet Volume 9.3 FL Neutrophils (%) (Auto) 53.6 % Lymphocytes (%) (Auto) 36.2 % Monocytes (%) (Auto) 8.1 % Eosinophils (%) (Auto) 1.5 % Basophils (%) (Auto) 0.6 % Neutrophils # (Auto) 2.9 TH/MM3 Lymphocytes # (Auto) 2.0 TH/MM3 Monocytes # (Auto) 0.4 TH/MM3 Eosinophils # (Auto) 0.1 TH/MM3 Basophils # (Auto) 0.0 TH/MM3 CBC Comment AUTO DIFF Differential Comment AUTO DIFF CONFIRMED Urine Color YELLOW Urine Turbidity CLEAR Urine pH 7.0 Urine Specific [place] 1.026 Urine Protein TRACE mg/dL Urine Glucose (UA) NEG mg/dL Urine Ketones NEG mg/dL Urine Occult Blood SMALL Urine Nitrite NEG Urine Bilirubin NEG Urine Urobilinogen 2.0 MG/DL Urine Leukocyte Esterase NEG Urine RBC 51 /hpf Urine WBC 1 /hpf Urine Squamous Epithelial Cells 2 /hpf Urine Mucus MOD /lpf Microscopic Urinalysis Comment CULT NOT INDICATED Blood Urea Nitrogen 6 MG/DL Creatinine 0.70 MG/DL Random Glucose 85 MG/DL Total Protein 7.7 GM/DL Albumin 3.9 GM/DL Calcium Level 8.7 MG/DL Alkaline Phosphatase 86 U/L Aspartate Amino Transf (AST/SGOT) 64 U/L Alanine Aminotransferase (ALT/SGPT) 103 U/L Total Bilirubin 0.4 MG/DL Sodium Level 142 MEQ/L Potassium Level 3.4 MEQ/L Chloride Level 108 MEQ/L Carbon Dioxide Level 27.9 MEQ/L Anion Gap 6 MEQ/L Estimat Glomerular Filtration Rate 105 ML/MIN Lipase 147 U/L Urine Opiates Screen NEG Urine Barbiturates Screen NEG Urine Amphetamines Screen NEG Urine Benzodiazepines Screen NEG Urine Cocaine Screen NEG Urine Cannabinoids Screen POS MDM Supervised Visit with KAI: Yes Narrative Course Patient care assumed from Maricruz Zhu at 2100. This is a 21-year-old female with a history of osteomyelitis and epidural abscess of her spine presents emergency Department with vague complaints of blurred vision and generalized fatigue as well as body aches and sore throat. Differential diagnosis includes the flu, strep throat. Given her history however recurrent osteomyelitis of the spine needs to be considered. MRI was obtained which shows: Last 24 hours Impressions Thoracic Spine MRI 12/31/16 0000 Signed Impressions: Service Date/Time: Saturday, December 31, 2016 20:20 - CONCLUSION: No acute abnormality demonstrated of the thoracic spine. There is scoliosis and a benign T6 vertebral body hemangioma. Viktor Collier MD Lumbar Spine MRI 12/31/16 0000 Signed Impressions: Service Date/Time: Saturday, December 31, 2016 20:20 - CONCLUSION: 1. Inflammatory changes and enhancement of the L3/L4 disc and adjacent vertebral body endplates are much improved in the interim compatible with resolving discitis/osteomyelitis. No abscess. 2. Other levels remain normal. Viktor Collier MD Cervical Spine MRI 12/31/16 0000 Signed Impressions: Service Date/Time: Saturday, December 31, 2016 20:20 - CONCLUSION: Mild degenerative changes of the C3/C4 disc. Otherwise negative MRI of the cervical spine. Viktor Collier MD Results were discussed with the patient, currently she is not on antibiotics. She states that she is always had pain which is gradually getting that has been present on her low spine. She has no midline tenderness at this time, my examination the patient is sitting calmly in bed plucking her eyebrows and doing her makeup in no distress. At this time I do not think there is any indication further workup or admission to the hospital, discussed with her need follow-up with a primary care physician abstinence from drugs and discussed follow-up with [facility] [place] [facility], or Narcotics Anonymous. Discussed return to ED criteria. Discussed follow-up with her infectious disease officer. Diagnosis Primary Impression: Generalized weakness Referrals: Marisela Garduno MD [facility] Scripts No Active Prescriptions or Reported Meds Disposition: DISCHARGE HOME Condition: Stable Ortega Ortez MD Dec 31, 2016 20:53
--- NOTE | 2016-12-31 22:22 | RADRPT ---
EXAM DATE/TIME: 12/31/2016 20:20 [facility] COMPARISON: No previous studies available for comparison. INDICATIONS : Osteomyelitis. CONTRAST: 17 cc Omniscan (gadodiamide) IV MEDICAL HISTORY : Hepatitis C. SURGICAL HISTORY : Cholecystectomy. section. ENCOUNTER: Subsequent ACUITY: 4-6 months PAIN SCORE: 8/10 LOCATION: [facility] TECHNIQUE: Multiplanar multisequence MRI of the thoracic spine was performed. FINDINGS: VERTEBRA: No subluxations. There is moderate dextroconvex curvature of the thoracic spine. A 1 cm benign amarjit ioma seen at the T6 vertebral body. ALIGNMENT: Normal. CORD: Normal position and configuration. POST CONTRAST: No abnormal areas of contrast enhancement seen. T1-T2: Normal. T2-T3: The thecal sac has a normal diameter. No evidence of disc bulge or protrusion. T3-T4: The thecal sac has a normal diameter. No evidence of disc bulge or protrusion. T4-T5: The thecal sac has a normal diameter. No evidence of disc bulge or protrusion. T5-T6: The thecal sac has a normal diameter. No evidence of disc bulge or protrusion. T6-T7: The thecal sac has a normal diameter. No evidence of disc bulge or protrusion. T7-T8: The thecal sac has a normal diameter. No evidence of disc bulge or protrusion. T8-T9: The thecal sac has a normal diameter. No evidence of disc bulge or protrusion. T9-T10: The thecal sac has a normal diameter. No evidence of disc bulge or protrusion. T10-T11: The thecal sac has a normal diameter. No evidence of disc bulge or protrusion. T11-T12: The thecal sac has a normal diameter. No evidence of disc bulge or protrusion. T12-L1: The thecal sac has a normal diameter. No evidence of disc bulge or protrusion. CONCLUSION: No acute abnormality demonstrated of the thoracic spine. There is scoliosis and a benign T6 vertebral body hemangioma. Viktor Collier MD on December 31, 2016 at 22:20 Board Certified Radiologist. This report was verified electronically.
--- NOTE | 2016-12-31 22:28 | RADRPT ---
EXAM DATE/TIME: 12/31/2016 20:20 [facility] COMPARISON: MRI LUMBAR SPINE W & W/O CONTRAST, August 06, 2016, 18:27. INDICATIONS : Osteomyelitis. CONTRAST: 17 cc Omniscan (gadodiamide) IV MEDICAL HISTORY : Hepatitis C. SURGICAL HISTORY : Cholecystectomy. section. ENCOUNTER: Subsequent ACUITY: 4-6 months PAIN SCORE: 8/10 LOCATION: [facility] TECHNIQUE: Multiplanar multisequence MRI of the lumbar spine was performed with and without contrast. FINDINGS: L3/L4 disc is desiccated and has moderate to severe loss of height. There is decreased enhancement of the disc, now minimal and mainly left posterolateral there is mild marrow edema and reactive appeari ng enhancement of the vertebral body endplates at L3/L4, also reduced. There is a small, broad/diffus e posterior protrusion again noted. No abscess demonstrated. Other lumbar levels are normal. CONCLUSION: 1. Inflammatory changes and enhancement of the L3/L4 disc and adjacent vertebral body endplates are m uch improved in the interim compatible with resolving discitis/osteomyelitis. No abscess. 2. Other levels remain normal. Viktor Collier MD on December 31, 2016 at 22:22 Board Certified Radiologist. This report was verified electronically.
--- NOTE | 2016-12-31 22:32 | RADRPT ---
EXAM DATE/TIME: 12/31/2016 20:20 [place] COMPARISON: No previous studies available for comparison. INDICATIONS : Osteomyelitis. CONTRAST: 17 cc Omniscan (gadodiamide) IV MEDICAL HISTORY : Hepatitis C. SURGICAL HISTORY : Cholecystectomy. section. ENCOUNTER: Subsequent ACUITY: 4-6 months PAIN SCORE: 8/10 LOCATION: Paraspinal TECHNIQUE: Multiplanar, multisequence MRI examination of the cervical spine was performed. FINDINGS: VERTEBRAE: Normal vertebral body height. Homogeneous marrow signal. ALIGNMENT: No evidence of subluxation. CORD: Normal configuration and signal. POST FOSSA: The cerebellar tonsils are normal in position. POST-CONTRAST: No abnormal areas of enhancement are seen. C2-C3: The thecal sac has a normal configuration. There is no evidence of disc herniation or spinal canal stenosis. The neural foramina are patent bilaterally. C3-C4: Mild bulging of disc annulus. C4-C5: The thecal sac has a normal configuration. There is no evidence of disc herniation or spinal canal s tenosis. The neural foramina are patent bilaterally. C5-C6: The thecal sac has a normal configuration. There is no evidence of disc herniation or spinal canal s tenosis. The neural foramina are patent bilaterally. C6-C7: The thecal sac has a normal configuration. There is no evidence of disc herniation or spinal canal s tenosis. The neural foramina are patent bilaterally. C7-T1: The thecal sac has a normal configuration. There is no evidence of disc herniation or spinal canal s tenosis. The neural foramina are patent bilaterally. CONCLUSION: Mild degenerative changes of the C3/C4 disc. Otherwise negative MRI of the cervical spine. Viktor Collier MD on December 31, 2016 at 22:28 Board Certified Radiologist. This report was verified electronically.
[2016-12-31 23:10] VITALS: BP 125/78
== END 2016-12-31 23:15 | disposition home or self-care (01) ==
LOC: NEPD 16:24
DX: R53.1 Weakness (principal)
CPT/HCPCS: 72156; 72157; 72158; 80053; 80307; 81001; 83690; 84703; 85025; 87081; 87804; 87880; 96360; 99285; A9579; J7030

== ENCOUNTER 2017-08-18 23:16 | Emergency (ER) | END 2017-08-19 02:16 | disposition home or self-care (01) | DX: H92.02 Otalgia, left ear (principal) ==

== ENCOUNTER 2017-08-31 09:20 | Emergency (ER) | payer MEDICAID ==
[~2017-08-31 09:20] MED LIST changes: +AMOX875T PO; -OXYC-392 PO; -TYLE325T PO
[2017-08-31 09:37] VITALS: BP 118/59; PULSE 88; RESP 18; TEMP 98; O2SAT 99
[2017-08-31 10:10] VITALS: BP 113/62; PULSE 84; RESP 22; O2SAT 97
[2017-08-31 10:15] VITALS: BP 113/62; PULSE 84; RESP 22; O2SAT 99
[2017-08-31] MEDS ORDERED: SODIUM CHLOR 0.9% 1000 ML INJ 1,000 ML IV ONE ×2 (10:15)
[2017-08-31] MEDS ORDERED: ONDANSETRON ODT 4 MG TAB PO ONE (10:15)
[2017-08-31] MEDS ORDERED: SODIUM CHLORIDE 0.9% FLUSH 10 ML FLUSH IVF PRN (10:15)
--- NOTE | 2017-08-31 10:27 | PD ---
HPI Chief Complaint: Cardiac Complaint Time Seen by Provider: 10:02 Travel History International Travel<30 days: No Contact w/Intl Traveler<30days: No Traveled to known affect area: No History of Present Illness HPI Patient is a 22 year old female who is 28 weeks , presents to the ER with complaints of palpitations. Reports that she began to have palpitations yesterday and it has persisted today. Reports that nothing is making symptoms better or worse. Denies chest pain/diaphoresis with her symptoms. Denies any history of pe or dvt. NO recent travels. Denies abdominal pain, denies n/v. Denies vaginal bleeding/discharge. Patient's education rn is Chantale ENGLISH Past Medical History Cancer: No Cardiovascular Problems: No Diminished Hearing: No Endocrine: No Gastrointestinal Disorders: Yes Genitourinary: No Immune Disorder: No Implanted Vascular Access Dvce: Yes (PICC LINE FOR OSTEOMELYITIES ) Musculoskeletal: No Neurologic: No Psychiatric: No Reproductive: No Respiratory: No Immunizations Current: Yes ?: LMP: 28 WEEKS : 5 Para: 2 Miscarriage: 2 Dilation and Curettage (D&C): Yes (PARTAIL ) Past Surgical History Abdominal Surgery: Yes (Gall Bladder removal) Section: Yes Cholecystectomy: Yes Gynecologic Surgery: Yes ( section) Other Surgery: Yes Social History Alcohol Use: No Tobacco Use: No Substance Use: Yes (IVDU) Allergies-Medications (Allergen,Severity, Reaction): Coded Allergies: *MDRO Multi-Drug Resistant Organism (Verified Adverse Reaction, Unknown, ) 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 Reported Meds & Prescriptions Reported Meds & Active Scripts Active Amoxicillin 875 Mg Tab 875 Mg PO BID 10 Days Reported Se- 19 29-1 mg Chew ( Vit W/ Ferrous Fumara Chew) 1 Chew 1 Tab CHEW DAILY Zoloft (Sertraline HCl) 100 Mg Tab 100 Mg PO DAILY Review of Systems General / Constitutional: No: Fever Eyes: No: Visual changes HENT: No: Headaches Cardiovascular: Positive: Palpitations, Irregular Rhythm, Tachycardia, No: Chest Pain or Discomfort, Diaphoresis Respiratory: No: Shortness of Breath Gastrointestinal: No: Abdominal Pain Genitourinary: No: Dysuria Musculoskeletal: No: Pain Skin: No Rash Neurologic: No: Weakness Psychiatric: No: Depression Endocrine: No: Polydipsia Hematologic/Lymphatic: No: Easy Bruising Physical Exam Narrative GENERAL: Mild distress SKIN: Focused skin assessment warm/dry. HEAD: Atraumatic. Normocephalic. EYES: Pupils equal and round. No scleral icterus. No injection or drainage. ENT: No nasal bleeding or discharge. Mucous membranes pink and moist. NECK: Trachea midline. No JVD. CARDIOVASCULAR: Regular rate and rhythm. No murmur appreciated. RESPIRATORY: No accessory muscle use. Clear to auscultation. Breath sounds equal bilaterally. GASTROINTESTINAL: Abdomen soft, non-tender, gravid abdomen. Hepatic and splenic margins not palpable. MUSCULOSKELETAL: No obvious deformities. No clubbing. No cyanosis. No edema. NEUROLOGICAL: Awake and alert. No obvious cranial nerve deficits. Motor grossly within normal limits. Normal speech. PSYCHIATRIC: Appropriate mood and affect; insight and judgment normal. Data Data Last Documented VS Vital Signs Date Time Temp Pulse Resp B/P (MAP) Pulse Ox O2 Delivery O2 Flow Rate FiO2 08/31/17 12:34 79 18 98/52 (67) 98 Room Air 08/31/17 09:37 98.0 Orders Orders Electrocardiogram (08/31/17 10:12) Ckmb (Isoenzyme) Profile (08/31/17 10:12) Complete Blood Count With Diff (08/31/17 10:12) Comprehensive Metabolic Panel (08/31/17 10:12) Magnesium (Mg) (08/31/17 10:12) Prothrombin Time / Inr (Pt) (08/31/17 10:12) Act Partial Throm Time (Ptt) (08/31/17 10:12) Troponin I (08/31/17 10:12) Chest, Single Ap (08/31/17 10:12) Ecg Monitoring (08/31/17 10:12) Iv Access Insert/Monitor (08/31/17 10:12) Oximetry (08/31/17 10:12) Sodium Chloride 0.9% Flush (Ns Flush) (08/31/17 10:15) Thyroid Stimulating Hormone (08/31/17 10:12) Ondansetron Odt (Zofran Odt) (08/31/17 10:15) Sodium Chlor 0.9% 1000 Ml Inj (Ns 1000 M (08/31/17 10:15) Sodium Chlor 0.9% 1000 Ml Inj (Ns 1000 M (08/31/17 10:15) Labs Laboratory Tests Test 08/31/17 10:35 White Blood Count 8.2 TH/MM3 Red Blood Count 3.84 MIL/MM3 Hemoglobin 11.0 GM/DL Hematocrit 32.7 % Mean Corpuscular Volume 85.1 FL Mean Corpuscular Hemoglobin 28.7 PG Mean Corpuscular Hemoglobin Concent 33.7 % Red Cell Distribution Width 15.5 % Platelet Count 217 TH/MM3 Mean Platelet Volume 8.9 FL Neutrophils (%) (Auto) 71.7 % Lymphocytes (%) (Auto) 19.5 % Monocytes (%) (Auto) 7.6 % Eosinophils (%) (Auto) 0.8 % Basophils (%) (Auto) 0.4 % Neutrophils # (Auto) 5.9 TH/MM3 Lymphocytes # (Auto) 1.6 TH/MM3 Monocytes # (Auto) 0.6 TH/MM3 Eosinophils # (Auto) 0.1 TH/MM3 Basophils # (Auto) 0.0 TH/MM3 CBC Comment DIFF FINAL Differential Comment Prothrombin Time 10.1 SEC Prothromb Time International Ratio 1.0 RATIO Activated Partial Thromboplast Time 24.8 SEC Blood Urea Nitrogen 7 MG/DL Creatinine 0.54 MG/DL Random Glucose 90 MG/DL Total Protein 6.8 GM/DL Albumin 2.5 GM/DL Calcium Level 8.2 MG/DL Magnesium Level 1.8 MG/DL Alkaline Phosphatase 108 U/L Aspartate Amino Transf (AST/SGOT) 27 U/L Alanine Aminotransferase (ALT/SGPT) 43 U/L Total Bilirubin 0.3 MG/DL Sodium Level 141 MEQ/L Potassium Level 3.9 MEQ/L Chloride Level 105 MEQ/L Carbon Dioxide Level 26.2 MEQ/L Anion Gap 10 MEQ/L Estimat Glomerular Filtration Rate 140 ML/MIN Total Creatine Kinase 38 U/L Troponin I LESS THAN 0.02 NG/ML Thyroid Stimulating Hormone 3rd Gen 1.270 uIU/ML MDM Medical Decision Making Medical Screen Exam Complete: Yes Emergency Medical Condition: Yes Medical Record Reviewed: Yes Interpretation(s) EKG at 0953: NSR at 67bpm, qt/qtc: 399/414, no acute st or t wave changes Vital Signs Date Time Temp Pulse Resp B/P (MAP) Pulse Ox O2 Delivery O2 Flow Rate FiO2 08/31/17 10:15 84 22 113/62 (79) 99 Room Air 08/31/17 10:10 84 20 97 Room Air 08/31/17 10:10 84 22 113/62 (79) 97 Room Air 08/31/17 09:37 98.0 88 18 118/59 (78) 99 Differential Diagnosis Electrolyte abnormality, dehydration, abnormal TSH, PE, pneumothorax, ACS, arrhythmia, pericarditis, endocarditis Narrative Course 22-year-old female who is 28 weeks , presents the emergency room complaints of palpitations which started yesterday. Vital Signs Date Time Temp Pulse Resp B/P (MAP) Pulse Ox O2 Delivery O2 Flow Rate FiO2 08/31/17 10:15 84 22 113/62 (79) 99 Room Air 08/31/17 10:10 84 20 97 Room Air 08/31/17 10:10 84 22 113/62 (79) 97 Room Air 08/31/17 09:37 98.0 88 18 118/59 (78) 99 Patient reports palpitations which has been continuous since yesterday, patient' s heart rate is 84, patient's EKG normal sinus rhythm at 67 bpm. Lab work including CBC, CMP were ordered. I discussed need for x-ray the chest which patient consents to - risks and benefits of x-rays were reviewed with patient as she is During the course of the patients emergency department visit, the patients history, examination, and differential diagnosis were reviewed with the patient. The patient was placed on a monitoring and evaluation advisor with oximetry and frequent blood pressure monitoring. The patient had an IV access obtained and blood work sent for analysis. The patient was initially provided IVF The patients laboratory studies were reviewed and remarkable for Laboratory Tests Test 08/31/17 10:35 White Blood Count 8.2 TH/MM3 (4.0-11.0) Red Blood Count 3.84 MIL/MM3 (4.00-5.30) Hemoglobin 11.0 GM/DL (11.6-15.3) Hematocrit 32.7 % (35.0-46.0) Mean Corpuscular Volume 85.1 FL (80.0-100.0) Mean Corpuscular Hemoglobin 28.7 PG (27.0-34.0) Mean Corpuscular Hemoglobin Concent 33.7 % (32.0-36.0) Red Cell Distribution Width 15.5 % (11.6-17.2) Platelet Count 217 TH/MM3 (150-450) Mean Platelet Volume 8.9 FL (7.0-11.0) Neutrophils (%) (Auto) 71.7 % (16.0-70.0) Lymphocytes (%) (Auto) 19.5 % (9.0-44.0) Monocytes (%) (Auto) 7.6 % (0.0-8.0) Eosinophils (%) (Auto) 0.8 % (0.0-4.0) Basophils (%) (Auto) 0.4 % (0.0-2.0) Neutrophils # (Auto) 5.9 TH/MM3 (1.8-7.7) Lymphocytes # (Auto) 1.6 TH/MM3 (1.0-4.8) Monocytes # (Auto) 0.6 TH/MM3 (0-0.9) Eosinophils # (Auto) 0.1 TH/MM3 (0-0.4) Basophils # (Auto) 0.0 TH/MM3 (0-0.2) CBC Comment DIFF FINAL Differential Comment Prothrombin Time 10.1 SEC (9.8-11.6) Prothromb Time International Ratio 1.0 RATIO Activated Partial Thromboplast Time 24.8 SEC (24.3-30.1) Blood Urea Nitrogen 7 MG/DL (7-18) Creatinine 0.54 MG/DL (0.50-1.00) Random Glucose 90 MG/DL (74-106) Total Protein 6.8 GM/DL (6.4-8.2) Albumin 2.5 GM/DL (3.4-5.0) Calcium Level 8.2 MG/DL (8.5-10.1) Magnesium Level 1.8 MG/DL (1.5-2.5) Alkaline Phosphatase 108 U/L (45-117) Aspartate Amino Transf (AST/SGOT) 27 U/L (15-37) Alanine Aminotransferase (ALT/SGPT) 43 U/L (10-53) Total Bilirubin 0.3 MG/DL (0.2-1.0) Sodium Level 141 MEQ/L (136-145) Potassium Level 3.9 MEQ/L (3.5-5.1) Chloride Level 105 MEQ/L (98-107) Carbon Dioxide Level 26.2 MEQ/L (21.0-32.0) Anion Gap 10 MEQ/L (5-15) Estimat Glomerular Filtration Rate 140 ML/MIN (>89) Total Creatine Kinase 38 U/L (26-192) Troponin I LESS THAN 0.02 NG/ML Thyroid Stimulating Hormone 3rd Gen 1.270 uIU/ML (0.358-3.740) Radiology studies were reviewed and remarkable for Last Impressions Chest X-Ray 08/31/17 1012 Signed Impressions: CONCLUSION: No acute cardiopulmonary disease. Patient reevaluated, patient reports that she is feeling much better this time. Patient has complete resolution of symptoms. I did instruct patient to drink plenty of fluids and to follow-up with her AIRCRAFT POWERPLANT REPAIRER as well as her primary care doctor. Signs and symptoms of when to return to the emergency room was reviewed with the patient in detail. Diagnosis Primary Impression: Heart palpitations Patient Instructions: General Instructions Additional Instructions: Please provide patient with a copy of their lab work and studies at discharge* * Please follow up with your primary care doctor in 2-3 days Return to the ER if symptoms worsen or progress Return to the ER as needed Please drink plenty of fluids, follow-up with your AIR[employer] POWERPLANT REPAIRER Disposition: 01 DISCHARGE HOME Condition: Stable Jaz Pitts DO August 31, 2017 10:27
--- NOTE | 2017-08-31 10:41 | RADRPT ---
EXAM DATE: 08/31/2017 10:28 AM EDT AGE/SEX: 22 years / Female INDICATIONS: Chest pain. CLINICAL DATA: This is the patient's initial encounter. Patient reports that signs and symptoms have been present for 1 day and indicates a pain score of 10/10. MEDICAL/SURGICAL HISTORY: . pt 28 weeks None. COMPARISON: [facility] [place]ST SING[place], 08/11/2016. . FINDINGS: A single AP view of the chest demonstrates the lungs to be symmetrically aerated without evidence of mass, infiltrate or effusion. The cardiomediastinal contours are unremarkable. Osseous structures a re intact with mild scoliosis of the thoracic and lumbar spine. There are multiple overlying electroc ardiogram leads present. CONCLUSION: No acute cardiopulmonary disease. Electronically signed by: Ranjan Barker MD 08/31/2017 10:39 AM EDT
[2017-08-31 10:56] LABS: AUTOMATED NEUTROPHIL # 5.9 TH/MM3 (1.8-7.7); BASOPHIL % 0.4 % (0.0-2.0); EOSINOPHIL # 0.1 TH/MM3 (0-0.4); EOSINOPHIL % 0.8 % (0.0-4.0); HEMATOCRIT 32.7 % (35.0-46.0); LYMPH % 19.5 % (9.0-44.0); LYMPHOCYTE # 1.6 TH/MM3 (1.0-4.8); MEAN CELL VOLUME 85.1 FL (80.0-100.0); MEAN CORPUSCULAR HEMOGLOBIN 28.7 PG (27.0-34.0); MEAN CORPUSCULAR HGB CONC 33.7 % (32.0-36.0); MEAN PLATELET VOLUME 8.9 FL (7.0-11.0); MONO % 7.6 % (0.0-8.0); MONOCYTE # 0.6 TH/MM3 (0-0.9); NEUT % 71.7 % (16.0-70.0); PLATELET COUNT 217 TH/MM3 (150-450); RED BLOOD COUNT 3.84 MIL/MM3 (4.00-5.30); RED CELL DISTRIBUTION WIDTH 15.5 % (11.6-17.2); WHITE BLOOD COUNT 8.2 TH/MM3 (4.0-11.0)
[2017-08-31 11:08] LABS: PROTHROMBIN TIME - PATIENT 10.1 SEC (9.8-11.6)
[2017-08-31 11:13] LABS: ALBUMIN 2.5 GM/DL (3.4-5.0); ALT (GPT) 43 U/L (10-53); AST (GOT) 27 U/L (15-37); BICARBONATE 26.2 MEQ/L (21.0-32.0); BLOOD UREA NITROGEN 7 MG/DL (7-18); CALCIUM 8.2 MG/DL (8.5-10.1); CHLORIDE 105 MEQ/L (98-107); CREATININE 0.54 MG/DL (0.50-1.00); GLOMERULAR FILTRATION RATE 140 ML/MIN (>89); GLUCOSE,RANDOM 90 MG/DL (74-106); MAGNESIUM 1.8 MG/DL (1.5-2.5); SODIUM (NA) 141 MEQ/L (136-145)
[2017-08-31 11:22] LABS: ALKALINE PHOSPHATASE 108 U/L (45-117); TOTAL BILIRUBIN ADULT 0.3 MG/DL (0.2-1.0); TOTAL PROTEIN 6.8 GM/DL (6.4-8.2); TROPONIN I LESS THAN 0.02 NG/ML (0.02-0.05)
[2017-08-31] MEDS ORDERED: SE-NCHW CHEW (11:26)
[2017-08-31] MEDS ORDERED: ZOLO100T PO (11:26)
[2017-08-31 12:34] VITALS: BP 98/52; PULSE 79; RESP 18; O2SAT 98
[2017-08-31 13:46] VITALS: BP 105/62
--- NOTE | 2017-09-01 14:41 | EKG ---
Date Performed: 08/31/2017 Time Performed: 09:53:30 PTAGE: 22 years EKG: Sinus rhythm NORMAL ECG INTERPRETATION BASED ON A DEFAULT AGE OF 40 YEARS Since the PREVIOUS TRACING , no significant change noted PREVIOUS TRACIN08/30/2016 08.26 DOCTOR: Christopher Fiore Interpretating Date/Time 09/01/2017 14:41:16
== END 2017-08-31 13:59 | disposition home or self-care (01) ==
LOC: NEPC 09:20
DX: O26.893 Other specified pregnancy related conditions, third trimester (principal); R00.2 Palpitations; Z3A.28 28 weeks gestation of pregnancy
CPT/HCPCS: 71045; 80053; 82550; 83735; 84443; 84484; 85025; 85610; 85730; 93005; 96360; 99285; J7030

== ENCOUNTER 2017-11-15 00:04 | Inpatient (IN) ==
[2017-11-15] MEDS ORDERED: Sod Chloride 0.9% Inj 1,000 ML IV.CONT PRN (00:56)
[2017-11-15] MEDS ORDERED: Naloxone Inj 0.4 MG/ML Vial IV.PUSH PRN ×2 (00:56→08:31)
[2017-11-15] MEDS ORDERED: Oxytocin 30 Units/500ml Premix 30 UNITS/500 ML BAG IV.SIG ONE (00:56)
[2017-11-15] MEDS ORDERED: fentaNYL Citrate Inj 100 MCG/2 ML Ampul IV.PUSH PRN ×2 (00:56)
[2017-11-15] MEDS ORDERED: Sodium Chlor 0.9% Inj 500 ML IV.SIG PRN (00:56)
--- NOTE | 2017-11-15 00:56 | P.HPOB ---
FIELD AGENT - Consult Note Patient Name: Giselle Montilla Date of : 89 Patient Status: Clinical Attending Provider: Santy Morales Date: 11/14/17 16:31 Initialization Date: 11/14/17 16:31 History of Present Illness Primary Care Physician: NOT REQUIRED Chantale Solano Chief Complaint: Previous desires History of Present Illness: Patient is 22-year-old white female A2 is had a with her last and desires delivery with this baby. She is currently 39 weeks with a EDC of 11/21/2017. She has had 20 week ultrasound to confirm that due date. She has records available. She also complains of the usual aches and pains of but no specific problems. She has had no other complicating factors this other than drug use she is admitted inhaler of meth amphetamine and takes amphetamines p.o. she denies IV drug use she has also been in contact with [facility] for replacement there and going to detox. Also and her records states she is trying to give this baby up for adoption. Weeks Gestation:: 39 Para: 2 (Her second baby was vaginal delivery at 37 weeks induced and that baby is now 4 years ago also then she had a miscarriage and then the last baby was at 23 weeks was a for spontaneous rupture membranes and chorion amnion weeks) : 5 Total # of Miscarriage(s): 2 Total # of Abortions (Spontaneous & Elective): 2 Review of Systems Constitutional: Reports body ache(s), Denies anorexia, Denies chills, Denies daytime sleepiness, Denies excessive sweating, Denies fatigue, Denies fever(s), Denies headache(s), Denies increased appetite, Denies lack of energy, Denies malaise, Denies night sweats, Denies weakness, Denies weight gain, Denies weight loss, Denies other Cardiovascular: Denies chest pain, Denies chest pain at rest, Denies chest pain with activity, Denies excessive sweating, Denies fainting, Denies fast heart rate, Denies foot swelling, Denies generalized swelling, Denies irregular heart rhythm, Denies leg pain with activity, Denies leg sores, Denies leg swelling, Denies lightheadedness, Denies radiating jaw, neck or arm pain, Denies rapid, pounding, or irregular heartbeat, Denies shortness of breath, Denies shortness of breath with activity, Denies shortness of breath when lying down, Denies shortness of breath causing sudden awakening, Denies slow heart rate, Denies other Respiratory: Denies change in phlegm color, Denies chest congestion, Denies cough, Denies coughing up blood, Denies excessive phlegm production, Denies pain on inspiration, Denies pain with cough, Denies shortness of breath, Denies shortness of breath with activity, Denies snoring, Denies stridor, Denies wheezing, Denies other Gastrointestinal: Denies abdominal pain, Denies belching, Denies black, tarry stools, Denies bloating, Denies bright, red blood in stools, Denies change in bowel habits, Denies constant urge to pass stool, Denies change in stools, Denies coffee ground vomit, Denies constipation, Denies cramping, Denies difficulty swallowing, Denies excessive passing of gas, Denies feeling full early, Denies heartburn, Denies incontinent of stools, Denies loose stools, Denies nausea, Denies pain with swallowing, Denies vomiting, Denies vomiting blood, Denies other Genitourinary: Denies abnormal periods, Denies abnormal vaginal bleeding, Denies absent period, Denies bleeding between periods, Denies blood in urine, Denies difficulty starting urination, Denies difficulty urinating, Denies dribbling after urination, Denies frequent nighttime urination, Denies genital itching, Denies genital lesions, Denies heavy periods, Denies hot flashes, Denies light periods, Denies nipple discharge, Denies painful intercourse, Denies painful periods, Denies painful urination, Denies pelvic pain, Denies prolapse symptoms, Denies sexual problems, Denies side pain, Denies urinary incontinence, Denies urinary urgency, Denies vaginal discharge, Denies vaginal dryness, Denies vaginal odor, Denies vaginal itching, Denies other Neurologic: Denies abnormal hearing, Denies abnormal movements, Denies abnormal speech, Denies abnormal walking, Denies behavioral changes, Denies burning sensations, Denies confusion, Denies dizziness, Denies fainting, Denies frequent falls, Denies headache(s), Denies lack of coordination, Denies localized weakness, Denies loss of vision, Denies memory loss, Denies numbness, Denies other visual disturbances, Denies radiating pain, Denies restless legs, Denies convulsions, Denies seizure-like activity, Denies sensory deficit, Denies tingling, Denies tingling/numbness/burning sensations, Denies tremor(s), Denies unsteadiness, Denies weakness, Denies other PMFSH - History History Provided By: Patient - Surgical History Surgical History: Surgical History (Last Updated 10/30/17 @ 20:57 by Neal Rivera MD) H/O dilation and curettage History of delivery History of cholecystectomy - Tobacco History Smoking Status: Smoker, status unknown Tobacco Type: Cigarettes - Alcohol History How Often Do You Have a Drink Containing Alcohol: Never - Substance Use History Substance History: Active Abuse - Substance Use Type Methamphetamine Route Used: By Mouth, Inhalation Comment: Currently not using a living with her grandmother - Travel History History of Recent Travel: No Recent Travel in the [place] Within the Last 8 Weeks: No Recent Travel Out of the Country Within the Last 8 Weeks: No Medications and Allergies Allergies Allergy/AdvReac Type Severity Reaction Status Date / Time *MDRO Multi-Drug Resistant AdvReac Unknown Uncoded 08/31/17 10:17 Organism Home Medications Medication Instructions Recorded Confirmed Type 10/30/17 History ferrous sulfate [Iron (ferrous 10/30/17 History sulfate)] Exam - Constitutional no acute distress - Routine HEENT Exam Head: Present: normocephalic, atraumatic Eye: Present: PERRL - Routine Neck Exam Present: supple, full ROM - Routine Respiratory Exam Present: CTA bilaterally - Routine Cardiovascular Exam Present: RRR, S1, S2 - Routine Abdominal Exam Present: soft - Routine Exam Comments: Cervix closed thick and high - Routine Skin Exam Present: intact - Routine Neurological Exam Present: alert, oriented X3, CN II-XII intact Caprini VTE Risk Assessment Caprini VTE Risk Assessment: No/Low Risk (score <= 1) Caprini Risk Assessment Model: Point Value = 1 Point Value = 2 Point Value = 3 Point Value = 5 Age 41-60 Minor surgery BMI > 25 kg/m2 Swollen legs Varicose veins or History of unexplained or recurrent spontaneous Oral contraceptives or hormone replacement Sepsis (< 1 month) Serious lung disease, including pneumonia (< 1 month) Abnormal pulmonary function Acute myocardial infarction Congestive heart failure (< 1 month) History of inflammatory bowel disease Medical patient at bed rest Age 61-74 Arthroscopic surgery Major open surgery (> 45 min) Laparoscopic surgery (> 45 min) Malignancy Confined to bed (> 72 hours) Immobilizing plaster cast Central venous access Age >= 75 History of VTE Family history of VTE Factor V Leiden Prothrombin [id number] Lupus anticoagulant Anticardiolipin antibodies Elevated serum homocysteine Heparin-induced thrombocytopenia Other congenital or acquired thrombophilia Stroke (< 1 month) Elective arthroplasty Hip, pelvis, or leg fracture Acute spinal cord injury (< 1 month) Prophylaxis Regimen: Total Risk Factor Score Risk Level Prophylaxis Regimen 0-1 Low Early ambulation 2 Moderate Order ONE of the following: *Sequential Compression Device (SCD) *Heparin 5000 units SQ BID 3-4 Higher Order ONE of the following medications: *Heparin 5000 units SQ TID *Enoxaparin/Lovenox 40 mg SQ daily (WT < 150 kg, CrCl > 30 mL/min) *Enoxaparin/Lovenox 30 mg SQ daily (WT < 150 kg, CrCl > 10-29 mL/min) *Enoxaparin/Lovenox 30 mg SQ BID (WT < 150 kg, CrCl > 30 mL/min) AND/OR *Sequential Compression Device (SCD) 5 or more Highest Order ONE of the following medications: *Heparin 5000 units SQ TID (Preferred with Epidurals) *Enoxaparin/Lovenox 40 mg SQ daily (WT < 150 kg, CrCl > 30 mL/min) *Enoxaparin/Lovenox 30 mg SQ daily (WT < 150 kg, CrCl > 10-29 mL/min) *Enoxaparin/Lovenox 30 mg SQ BID (WT < 150 kg, CrCl > 30 mL/min) AND *Sequential Compression Device (SCD) Assessment and Plan - Diagnosis (1) Previous section complicating Code(s): O34.219 - Maternal care for unspecified type scar from previous delivery Status: Acute (2) Drug use affecting in third trimester Code(s): O99.323 - Drug use complicating , third trimester Status: Acute (3) 39 weeks gestation of Code(s): Z3A.39 - 39 weeks gestation of Status: Acute - Plan Patient is 39 week intrauterine previous and previous vaginal delivery in the past and desires delivery this time. She is strongly motivated to deliver vaginally and does not want a . I described her the delivery was considered safe she she does have a transverse scar on her uterus and that was documented in the operative note with the patient. And that we consider VBACs safe but yet has the risk of uterine rupture of approximately 1% or just little less than that she understood that risk and was willing to proceed with attempt. We have scheduled patient to return 41 weeks and until 41 weeks she has the chance to go into labor just like anybody else and come in hopefully in labor and deliver as described. However if she does not go into labor and deliver by that time she is going to return at 41 weeks at that time we have scheduled C -section for that day, if her cervix is very favorable and it may well be since she is delivered vaginally in the past if it is favorable and inducible then will consider rupture membranes and starting Pitocin and inducing her, her cervix is very unfavorable very low Cornejo score proceed with repeat section, patient understands that plan agrees to it and plans to return on 2017 for the above evaluation and therapy
[2017-11-15] MEDS ORDERED: Citric Acid/Sodium Citrate Liq 30 ML UDC PO SCH (01:00)
[2017-11-15 01:30] LABS: Baso % (Auto) 0.6 % (0.0-2.0); Eos # (Auto) 0.1 th/mm3 (0.0-0.4); Hematocrit 33.8 % (35.0-46.0); Hemoglobin 11.1 gm/dL (11.6-15.3); Lymph # (Auto) 2.5 th/mm3 (1.0-4.8); Lymph % (Auto) 33.2 % (9.0-44.0); Mean Corpuscular Hemoglobin 26.7 pg (27.0-34.0); Mean Platelet Volume 9.1 fL (7.0-11.0); Mono # (Auto) 0.6 th/mm3 (0.0-0.9); Mono % (Auto) 8.6 % (0.0-8.0); Neut # (Auto) 4.3 th/mm3 (1.8-7.7); Neut % (Auto) 56.6 % (16.0-70.0); Platelet Count 234 th/mm3 (150-450); Red Blood Count 4.17 mil/mm3 (4.00-5.30); Red Cell Distribution Width 18.8 % (11.6-17.2); White Blood Count 7.6 th/mm3 (4.0-11.0)
[2017-11-15] MEDS ORDERED: fentaNYL 2MCG-Bupiv 0.125% Epi 150 ML EPIDURAL ONE (01:31)
[2017-11-15 01:47] LABS: Bacteria,Urine Occasional /hpf; Bilirubin,Urine Negative (Negative); Clarity,Urine Cloudy (Clear); Color,Urine Yellow (Yellw/Straw); Glucose,Urine (UA) Negative (Negative); Leukocyte Esterase,Urine Large (Negative); Mucus,Urine Few /lpf (Occasional); Nitrite,Urine Negative (Negative); Specific Gravity,Urine 1.024 (1.002-1.035); Squamous Epithelial Cell,Urine 14 /hpf (0-5); Trichomonas,Urine Occasional /hpf
[2017-11-15 01:50] LABS: Benzodiazepine Urine With Conf Neg (Neg)
[2017-11-15 01:58] LABS: Amphetamine Urine With Conf Pos (Neg)
[2017-11-15] MEDS ORDERED: fentaNYL 2MCG-Bupiv 0.125% Epi 150 ML EPIDURAL PRN (02:30)
[2017-11-15] MEDS ORDERED: fentaNYL Citrate Inj 100 MCG/2 ML Ampul EPIDURAL ONE (02:30)
[2017-11-15] MEDS ORDERED: Oxytocin 30 Units/500ml Premix 30 UNITS/500 ML BAG IV.SIG PRN (03:47)
[2017-11-15] MEDS ORDERED: Lidocaine 1% Inj 50 ML Vial ONE (08:07)
[2017-11-15] MEDS ORDERED: Witch Hazel 50%/Glyderin 12.5% 40 Pad Jar RECTAL PRN (08:31)
[2017-11-15] MEDS ORDERED: Acetaminophen 325 MG Tablet PO PRN (08:31)
[2017-11-15] MEDS ORDERED: Bisacodyl 10 MG Supp RECTAL PRN (08:31)
[2017-11-15] MEDS ORDERED: Benzocaine 20% Top Spray 60 ML Can TOPICAL PRN (08:31)
[2017-11-15] MEDS ORDERED: Zolpidem Tartrate 5 MG Tablet PO PRN (08:31)
--- NOTE | 2017-11-15 08:44 | P.OBDELI ---
Weeks Gestation: 39 Patient Started Active Labor: Yes Artificial Rupture of Membrane: Yes Artificial ROM Date: 11/15/17 Artificial ROM Time: 04:00 Anesthesia: None, Epidural, Other (Periurethral injection of lidocaine) Episiotomy: none Vaginal Delivery: Normal, Spontaneous, Presentation: Occiput anterior Nuchal Cord: None Delayed Cord Clamping (45 sec): Yes Placenta: Spontaneous delivery, Intact, 3 vessel cord Laceration: Vaginal, 1 deg Repair: Vicryl running : Male Male A Infant Delivery Date: 11/15/17 Infant Delivery Time: 08:00 Weight: 3.203 kg score (1 min): 9 score (5 min): 9
[2017-11-15] MEDS ORDERED: Oxytocin 30 Units/500ml Premix 30 UNITS/500 ML BAG IV.CONT SCH (08:45)
[2017-11-15] MEDS: Senna/Docusate Sodium 8.6/50 MG Tablet PO SCH ×2 (15:09→21:45)
[2017-11-15] MEDS ORDERED: Diphtheria/Tetanus/Pertussis Vaccine Inj 0.5 ML Syringe IM ONE (16:00)
[2017-11-15] MEDS ORDERED: Measles/Mumps/Rubella Vaccine Inj 0.5 ML Vial SQ ONE (16:00)
[2017-11-15] MEDS: Ibuprofen 400 MG Tablet PO PRN (19:49)
--- NOTE | 2017-11-16 08:18 | P.PNOB ---
Subjective Interval history: Patient is a 22-year-old G 5 p 3 delivered at 39 weeks and 1 days. Patient is day 1 after spontaneous vaginal delivery. Patient's pain is well- controlled. Patient reports eating and drinking without any nausea or vomiting. Patient reports minimal bleeding. Patient is ambulating without complication. Patient reports some swelling in the legs. Patient denies any chest pain, shortness of breath, nausea, vomiting, fever, chills, or calf pain. Objective Vital Signs/I&O: Vital Signs 11/15/17 09:16 11/15/17 09:30 11/15/17 09:44 Temperature Pulse Rate 70 83 Respiratory Rate 16 16 Blood Pressure 141/95 H 131/98 H 11/15/17 11:15 11/15/17 12:54 11/15/17 14:45 Temperature 97.9 F 98.0 F Pulse Rate 72 65 Respiratory Rate 16 18 16 Blood Pressure 134/83 92/44 L 11/15/17 20:00 Temperature 98.0 F Pulse Rate 80 Respiratory Rate 18 Blood Pressure 140/98 H Result Diagrams: 11/15/17 01:06 Objective Remarks: GENERAL: Well-nourished, well-developed patient. CARDIOVASCULAR: Regular rate and rhythm without murmurs, gallops, or rubs. RESPIRATORY: Breath sounds equal bilaterally. No accessory muscle use. ABDOMEN/GI: Abdomen soft, mildly tender on deep palpation. Fundus: Firm. GENITOURINARY: Light to moderate bleeding. EXTREMITIES: No cyanosis or edema, non-tender, without signs of DVT. Medications and IVs: Active Medications Acetaminophen (Tylenol) 650 mg PO Q4H PRN PRN Reason: PAIN SCALE 1 TO 2 Al Hydroxide/Mg Hydroxide (Milk Of Magnesia Liq) 30 ml PO Q12H PRN PRN Reason: Mild Constipation Benzocaine (Americaine 20% Top [place]) 1 spray TOPICAL Q4H PRN PRN Reason: For Perineum Discomfort Bisacodyl (Dulcolax Supp) 10 mg RECTAL DAILY PRN PRN Reason: SEVERE CONSITIPATION Fentanyl/Bupivacaine/Sodium Chlor (Fentanyl 2 Mcg-Bupiv 0.125% Epi) 150 mls @ 10 mls/hr EPIDURAL PRN PRN PRN Reason: for Labor Pain Last Admin: 11/15/17 02:58 Dose: 10 mls/hr Ibuprofen (Motrin) 800 mg PO Q8H PRN PRN Reason: For cramping Last Admin: 11/15/17 19:49 Dose: 800 mg Lactulose (Lactulose Liq) 30 ml PO DAILY PRN PRN Reason: SEVERE CONSITIPATION Naloxone HCl (Narcan Inj) 0.1 mg IV.PUSH Q2M PRN PRN Reason: for opiate reversal Ondansetron HCl (Zofran Odt) 4 mg PO Q6H PRN PRN Reason: NAUSEA OR VOMITING Senna/Docusate Sodium (Barbara-Colace) 1 tab PO BID [facility] Last Admin: 11/15/17 21:45 Dose: Not Given Sennosides (Senokot) 17.2 mg PO Q12H PRN PRN Reason: Moderate Constipation Sodium Chloride (Ns Flush) 2 ml IV.FLUSH BID [facility] Last Admin: 11/16/17 04:51 Dose: Not Given Sodium Chloride (Ns Flush) 2 ml IV.FLUSH PRN PRN PRN Reason: FLUSH AFTER USING IV ACCESS Witch Geri/Glycerin (Tucks Pads) 1 applicatio RECTAL QID PRN PRN Reason: HEMORRHOIDS Zolpidem Tartrate (Ambien) 5 mg PO HS PRN PRN Reason: SLEEP Assessment and Plan - Plan Patient is a 22-year-old G 5 p 3 delivered at 39 weeks and 1 days. Patient is day 1 after spontaneous vaginal delivery. Patient was counseled to do 6 weeks of pelvic rest. Patient was counseled to follow up in 6 weeks. Patient not interested in contraception at this time. --AF VSS --Continue routine care --Motrin and Percocet when necessary for pain --Encourage OOB --Pelvic rest for 6 weeks will need follow-up appointment at that time. --Contraception: --Anticipate discharge tomorrow
[2017-11-16] MEDS: Senna/Docusate Sodium 8.6/50 MG Tablet PO SCH (09:00)
[2017-11-16] MEDS: Ibuprofen 400 MG Tablet PO PRN (18:48)
[2017-11-17] MEDS: Senna/Docusate Sodium 8.6/50 MG Tablet PO SCH (00:01)
--- NOTE | 2017-11-17 07:24 | P.PNOB ---
Subjective Interval history: Patient is a 22-year-old G 5 p 3 delivered at 39 weeks and 1 days. Patient is day 2 after spontaneous vaginal delivery. Patient's pain is well- controlled. Patient reports eating and drinking without any nausea or vomiting. She reports that she is having minimal vaginal bleeding and ambulating well. Patient denies any chest pain, shortness of breath, nausea, vomiting, fever, chills, new lower extremity swelling, or calf pain. Objective Vital Signs/I&O: Vital Signs 11/16/17 08:00 11/16/17 20:00 Temperature 97.7 F 98.2 F Pulse Rate 58 L 86 Respiratory Rate 16 18 Blood Pressure 117/64 121/71 Result Diagrams: 11/15/17 01:06 Objective Remarks: GENERAL: Well-nourished, well-developed patient. CARDIOVASCULAR: Regular rate and rhythm without murmurs, gallops, or rubs. RESPIRATORY: Breath sounds equal bilaterally. No accessory muscle use. ABDOMEN/GI: Abdomen soft, non-tender. Fundus: Firm, non-tender at umbilicus. GENITOURINARY: Light to moderate bleeding. EXTREMITIES: No cyanosis or edema, non-tender, without signs of DVT. Medications and IVs: Active Medications Acetaminophen (Tylenol) 650 mg PO Q4H PRN PRN Reason: PAIN SCALE 1 TO 2 Al Hydroxide/Mg Hydroxide (Milk Of Magnesia Liq) 30 ml PO Q12H PRN PRN Reason: Mild Constipation Benzocaine (Americaine 20% Top [place]) 1 spray TOPICAL Q4H PRN PRN Reason: For Perineum Discomfort Bisacodyl (Dulcolax Supp) 10 mg RECTAL DAILY PRN PRN Reason: SEVERE CONSITIPATION Fentanyl/Bupivacaine/Sodium Chlor (Fentanyl 2 Mcg-Bupiv 0.125% Epi) 150 mls @ 10 mls/hr EPIDURAL PRN PRN PRN Reason: for Labor Pain Last Admin: 11/15/17 02:58 Dose: 10 mls/hr Ibuprofen (Motrin) 800 mg PO Q8H PRN PRN Reason: For cramping Last Admin: 11/16/17 18:48 Dose: 800 mg Lactulose (Lactulose Liq) 30 ml PO DAILY PRN PRN Reason: SEVERE CONSITIPATION Naloxone HCl (Narcan Inj) 0.1 mg IV.PUSH Q2M PRN PRN Reason: for opiate reversal Ondansetron HCl (Zofran Odt) 4 mg PO Q6H PRN PRN Reason: NAUSEA OR VOMITING Senna/Docusate Sodium (Barbara-Colace) 1 tab PO BID [facility] Last Admin: 11/17/17 00:01 Dose: Not Given Sennosides (Senokot) 17.2 mg PO Q12H PRN PRN Reason: Moderate Constipation Sodium Chloride (Ns Flush) 2 ml IV.FLUSH BID [facility]PLACED BY [facility] Last Admin: 11/16/17 23:23 Dose: Not Given Sodium Chloride (Ns Flush) 2 ml IV.FLUSH PRN PRN PRN Reason: FLUSH AFTER USING IV ACCESS Witch Geri/Glycerin (Tucks Pads) 1 applicatio RECTAL QID PRN PRN Reason: HEMORRHOIDS Zolpidem Tartrate (Ambien) 5 mg PO HS PRN PRN Reason: SLEEP Assessment and Plan - Diagnosis (1) Post depression Code(s): F53 - Puerperal psychosis Status: Acute Plan: This is a patient with a history of anxiety who was administered the Goff depression scale and scored a 17 out of 30 meeting the threshold of a score of 10 or greater indicating depression. She also answered yes to item #10 about suicidal ideation. A psychiatry consult has been ordered. Of note: Patient currently scheduled to appear in court today the high likelihood that she will be incarcerated in the near future. Her legal situation may be adding to her depression manifesting itself in the depression scale. -Follow-up with psychiatric consult -follow any psychiatric recommendations - Plan Patient is a 22-year-old G 5 p 3 delivered at 39 weeks and 1 days. Patient is day 1 after spontaneous vaginal delivery. Patient was counseled to do 6 weeks of pelvic rest. Patient was counseled to follow up in 6 weeks. Patient not interested in contraception at this time. --AF VSS --Continue routine care --Motrin and Percocet when necessary for pain --Encourage OOB --Pelvic rest for 6 weeks will need follow-up appointment at that time. --Contraception: Denies at the moment and wished to follow-up with outpatient OB --Discharge pending psychological evaluation
[2017-11-17 08:40] VITALS: BP 110/72; PULSE 66; RESP 16; TEMP 98.8
[2017-11-17] MEDS: Ibuprofen 400 MG Tablet PO PRN (09:22)
--- NOTE | 2017-11-17 12:23 | P.CONPSY ---
Provisional Diagnosis Admission Date: November 15, 2017 00:52 [place] I.: Bipolar disorder, amphetamine use disorder, history of depression and anxiety, [place] II.: Cluster B traits, R/O borderline personality disorder History of Present Illness Service: [facility] Primary Care Provider: NOT REQUIRED Family Provider: No Primary Care Physician History of Present Illness: The patient is a 22-year-old woman, domiciled with her aunt and boyfriend in [place], employed, mother of 3 kids, 2 of them in the foster care system, past psychiatric history of self-reported bipolar disorder, anxiety , depression, vitamin C use disorder, no previous psychiatric hospitalizations, no previous attempts, poor impulse control, poor coping skills, suicidal attempts, self cutting behavior without SI, noncompliant with psychotropics, no significant medical history, delivered at 39 weeks and 2 days. Patient is day 2 after spontaneous vaginal delivery. Patient's pain is well- controlled. Patient reports eating and drinking without any nausea or vomiting. Patient reports minimal bleeding. Patient is ambulating without complication. Consulted to psychiatry due to symptomatology of depression. EMR was reviewed. The case was discussed with nursing charge. On psychiatric evaluation today the patient is calm, cooperative, pleasant. The patient is found chatting by phone with friends, she seems to be happy. The patient reports that she has been feeling a little bit depressed due to the fact that she cannot see her baby and the situation that she is fighting with [employer] to remove the custody of her new baby due to drug use. The patient is future oriented, she says that she wants to get better, she wants to fight for her baby, she denies hopelessness, she denies helplessness, denies worthlessness, she denies anhedonia, she denies problems sleeping and appetite, she denies suicidal and homicidal ideation, she denies visual and auditory hallucinations. She does report to be emotional and sad, "but not depressed essentially". The patient reports that in the past she has been taking Wellbutrin and BuSpar, with a good response, but had to stop this medication due to insurance problem. The patient reports that she is a former use of heroine IV, but lately she has just been smoking crystal meth. Denies use of alcohol and other drugs. The patient is fully oriented 3, no attention deficit, no gross cognitive impairment present. No loosening of associations, no paranoia, no ideas of reference present. PPHx: Bipolar disorder, anxiety, no previous psychiatric hospitalizations, history of suicide attempts, self cutting behavior without SI, she has been on BuSpar and Wellbutrin in the past. 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 Family psychiatric history: She reports that her brother is schizophrenic, mother bipolar, father with Past medical history: She denies Social history: The patient was born and raised in [facility], she losing holy heel with her causing a boyfriend, has 3 kids, she works in a restaurant, Review of Systems Cardiovascular: Denies chest pain, Denies chest pain at rest, Denies chest pain with activity, Denies excessive sweating, Denies fainting, Denies fast heart rate, Denies foot swelling, Denies generalized swelling, Denies irregular heart rhythm, Denies leg pain with activity, Denies leg sores, Denies leg swelling, Denies lightheadedness, Denies radiating jaw, neck or arm pain, Denies rapid, pounding, or irregular heartbeat, Denies shortness of breath, Denies shortness of breath with activity, Denies shortness of breath when lying down, Denies shortness of breath causing sudden awakening, Denies slow heart rate, Denies other Gastrointestinal: Denies abdominal pain, Denies belching, Denies black, tarry stools, Denies bloating, Denies bright, red blood in stools, Denies change in bowel habits, Denies constant urge to pass stool, Denies change in stools, Denies coffee ground vomit, Denies constipation, Denies cramping, Denies difficulty swallowing, Denies excessive passing of gas, Denies feeling full early, Denies heartburn, Denies incontinent of stools, Denies loose stools, Denies nausea, Denies pain with swallowing, Denies vomiting, Denies vomiting blood, Denies other Genitourinary: Denies abnormal periods, Denies abnormal vaginal bleeding, Denies absent period, Denies bleeding between periods, Denies blood in urine, Denies difficulty starting urination, Denies difficulty urinating, Denies dribbling after urination, Denies frequent nighttime urination, Denies genital itching, Denies genital lesions, Denies heavy periods, Denies hot flashes, Denies light periods, Denies nipple discharge, Denies painful intercourse, Denies painful periods, Denies painful urination, Denies pelvic pain, Denies prolapse symptoms, Denies sexual problems, Denies side pain, Denies urinary incontinence, Denies urinary urgency, Denies vaginal discharge, Denies vaginal dryness, Denies vaginal odor, Denies vaginal itching, Denies other Skin/Breast: Denies acne, Denies bleeding lesions, Denies boil, Denies breast swelling, Denies breast skin changes, Denies breast pain, Denies breast lump, Denies change in breast shape, Denies change in hair, Denies change in skin color, Denies changing lesions, Denies dry skin, Denies excessive hair growth, Denies hair loss, Denies itching, Denies lesions, Denies nail changes, Denies new lesions, Denies nipple discharge, Denies non-healing lesions, Denies redness , Denies sensitivity to light, Denies rash, Denies skin pain, Denies skin ulcer , Denies sores, Denies stretch druan, Denies unusual bruising, Denies wounds, Denies yellowing of the skin, Denies other Neurologic: Denies abnormal hearing, Denies abnormal movements, Denies abnormal speech, Denies abnormal walking, Denies behavioral changes, Denies burning sensations, Denies confusion, Denies dizziness, Denies fainting, Denies frequent falls, Denies headache(s), Denies lack of coordination, Denies localized weakness, Denies loss of vision, Denies memory loss, Denies numbness, Denies other visual disturbances, Denies radiating pain, Denies restless legs, Denies convulsions, Denies seizure-like activity, Denies sensory deficit, Denies tingling, Denies tingling/numbness/burning sensations, Denies tremor(s), Denies unsteadiness, Denies weakness, Denies other Psychiatric: Denies abnormal sleep pattern, Denies anxiety, Denies behavioral changes, Denies change in appetite, Denies change in sex drive, Denies confusion , Denies depression, Denies difficulty concentrating, Denies hearing things others do not hear, Denies hopelessness, Denies irritability, Denies lack of enjoyment, Denies memory loss, Denies mood swings, Denies panic attacks, Denies paranoia, Denies seeing things others do not see, Denies sensing things others do not sense, Denies tactile hallucinations, Denies thoughts of hurting/killing others, Denies thoughts of hurting/killing yourself, Denies other Endocrine: Denies cold intolerance, Denies excessive sweating, Denies flushing, Denies heat intolerance, Denies increased hunger, Denies increased thirst, Denies increased urination, Denies rapid, pounding, or irregular heartbeat, Denies other PMFSH - History History Provided By: Patient - Surgical History Surgical History: Surgical History (Last Updated 10/30/17 @ 20:57 by Neal Rivera MD) H/O dilation and curettage History of delivery History of cholecystectomy - Tobacco History Second Hand Smoke Exposure: Yes Tobacco Use In Past 30 Days: Yes Smoking Status: Smoker, status unknown Tobacco Type: Cigarettes - Alcohol History How Often Do You Have a Drink Containing Alcohol: Never - Substance Use History Substance History: Active Abuse - Travel History History of Recent Travel: No - Immunization History Tetanus Immunization: Unsure Hx Influenza Vaccine This Season: Unable to Assess Medications and Allergies Active Medications: Active Medications Acetaminophen (Tylenol) 650 mg PO Q4H PRN PRN Reason: PAIN SCALE 1 TO 2 Last Admin: 11/17/17 09:22 Dose: 650 mg Al Hydroxide/Mg Hydroxide (Milk Of Magnesia Liq) 30 ml PO Q12H PRN PRN Reason: Mild Constipation Benzocaine (Americaine 20% Top [place]) 1 spray TOPICAL Q4H PRN PRN Reason: For Perineum Discomfort Bisacodyl (Dulcolax Supp) 10 mg RECTAL DAILY PRN PRN Reason: SEVERE CONSITIPATION Fentanyl/Bupivacaine/Sodium Chlor (Fentanyl 2 Mcg-Bupiv 0.125% Epi) 150 mls @ 10 mls/hr EPIDURAL PRN PRN PRN Reason: for Labor Pain Last Admin: 11/15/17 02:58 Dose: 10 mls/hr Ibuprofen (Motrin) 800 mg PO Q8H PRN PRN Reason: For cramping Last Admin: 11/17/17 09:22 Dose: 800 mg Lactulose (Lactulose Liq) 30 ml PO DAILY PRN PRN Reason: SEVERE CONSITIPATION Naloxone HCl (Narcan Inj) 0.1 mg IV.PUSH Q2M PRN PRN Reason: for opiate reversal Ondansetron HCl (Zofran Odt) 4 mg PO Q6H PRN PRN Reason: NAUSEA OR VOMITING Senna/Docusate Sodium (Barbara-Colace) 1 tab PO BID [facility] Last Admin: 11/17/17 00:01 Dose: Not Given Sennosides (Senokot) 17.2 mg PO Q12H PRN PRN Reason: Moderate Constipation Sodium Chloride (Ns Flush) 2 ml IV.FLUSH BID [facility] Last Admin: 11/16/17 23:23 Dose: Not Given Sodium Chloride (Ns Flush) 2 ml IV.FLUSH PRN PRN PRN Reason: FLUSH AFTER USING IV ACCESS Witch Geri/Glycerin (Tucks Pads) 1 applicatio RECTAL QID PRN PRN Reason: HEMORRHOIDS Zolpidem Tartrate (Ambien) 5 mg PO HS PRN PRN Reason: SLEEP Allergies Allergy/AdvReac Type Severity Reaction Status Date / Time *MDRO Multi-Drug Resistant AdvReac Unknown none Uncoded 11/15/17 00:22 Organism Exam Vital signs: Vital Signs 11/16/17 20:00 11/17/17 08:00 Temperature 98.2 F 98.8 F Pulse Rate 86 66 Respiratory Rate 18 16 Blood Pressure 121/71 110/72 Mental Status Examination Appearance: Appropriate Consciousness: Alert Orientation: x4 Motor Activity: Normal gait Speech: Unremarkable Language: Adequate Fund of Knowledge: Adequate Attention and Concentration: Adequate Memory: Unremarkable Mood: Appropriate Affect: Appropriate Thought Process & Associations: Intact Thought Content: Appropriate Hallucination Type: None Delusion Type: None Suicidal Ideation: No Suicidal Plan: No Suicidal Intention: No Homicidal Ideation: No Homicidal Plan: No Homicidal Intention: No Insight: Adequate Judgment: Adequate Assessment and Plan - Assessment (1) Acute adjustment disorder with depressed mood Code(s): F43.21 - Adjustment disorder with depressed mood Status: Acute - Plan Plan: Estimated LOS: [] days On evaluation patient presents with symptoms of depression, she reports feeling sad in the context separation form her baby, but denies hopelessness, helplessness, worthlessness, the patient is future oriented, she has the goal of being discharged today to go to court to fight for her baby. In my evaluation I noted that the patient has euthymic affect, she is receiving several phone calls, she is witnessed to be chatting with friends happy. She denies suicidal and homicidal ideation, she denies visual and auditory hallucinations. Current presentation seems to be more related with adjustment disorder with depression present secondary to a primary major psychiatric illness decompensation. Based on psychiatric evaluation and observation the patient does carry several clinically significant cluster B traits, such as poor impulse control, inability to delay gratification, poor tolerance to frustration, poor coping skills, interpersonal relationship problems, past self mutilating behavior, that suggest the patient might have an underlying borderline personality disorder, but more observation is needed in order to complete the diagnosis. She does report history of depression in the past, bipolar disorder, poor impulse control, suicide attempts, self cutting behavior without SI, persisting use of drugs in the past antidepressant, she is to be IV heroin user, in these days she has been using amphetamines. I have discussed with the patient the importance of continued to avoid drugs, try to engage in an outpatient rehabilitation program, and the fact that she may benefit of using Wellbutrin to help with mood symptoms and also to decrease craving of amphetamines. For this reason I recommend Wellbutrin 75 mg twice daily. She can continue her outpatient care with PCP. Extensive support, motivation and psychoeducation provided. No admission in psychiatry is indicated at this moment. Justification for Continued Inpatient Stay: No admission indicated
[2017-11-17] MEDS ORDERED: buPROPion 75 MG Tablet PO SCH (21:00)
== END 2017-11-17 13:27 | disposition home or self-care (01) ==
LOC: HOBED 00:04 → H2E 00:52 → H1EA 12:28
PROVIDERS: ADMIT Obstetrics & Gynecology Maternal & Fetal Medicine; ATTEND Obstetrics & Gynecology Maternal & Fetal Medicine